=== PATIENT | male | born 1970 | race Caucasian/White ===

== ENCOUNTER 2017-05-15 20:51 | Inpatient (IN) | payer MEDICARE, MEDICAID ==
--- NOTE | 2017-05-15 21:07 | ED ---
General Adult HPI - General Chief complaint: Psychiatric Symptoms Stated complaint: mental health Time Seen by Provider: 05/15/17 20:58 Source: patient, RN notes reviewed Mode of arrival: ambulatory Limitations: no limitations - History of Present Illness Initial comments: Patient 46-year-old male who presents emergency room today with chief complaint of auditory hallucinations. He does admit that he's been hearing voices. He denies any thoughts of hurting himself or others. States he was seeing admitted to the hospital back in August 2016. at bedside states that he does not smoke been taking his medications. States is not taking or what to do. He does admit to taking the Zoloft. States she's been taking his metformin for his diabetes. He denies any other complaints or associated symptoms. Patient denies any recent fever, chills, shortness of breath, chest pain, back pain, abdominal pain, nausea or vomiting, numbness or tingling, dysuria or hematuria, constipation or diarrhea, headaches or visual changes, or any other complaints. - Related Data Home Medications Medication Instructions Recorded Confirmed Atorvastatin [Lipitor] 40 mg PO DAILY 05/15/17 05/15/17 Sertraline [Zoloft] 100 mg PO DAILY 05/15/17 05/15/17 metFORMIN HCL [Glucophage] 500 mg PO BID 05/15/17 05/15/17 Allergies Allergy/AdvReac Type Severity Reaction Status Date / Time No Known Allergies Allergy Verified 05/15/17 21:12 Review of Systems ROS Statement: Those systems with pertinent positive or pertinent negative responses have been documented in the HPI. ROS Other: All systems not noted in ROS Statement are negative. Past Medical History Past Medical History: Diabetes Mellitus History of Any Multi-Drug Resistant Organisms: None Reported Additional Past Surgical History / Comment(s): right shoulder Past Psychological History: Bipolar, Depression, Schizoaffective Disorder Smoking Status: Former smoker General Exam - General Exam Comments Initial Comments: General: The patient is awake and alert, in no distress, and does not appear acutely ill. Eye: Pupils are equal, round and reactive to light, extra-ocular movements are intact. No nystagmus. There is normal conjunctiva bilaterally. No signs of icterus. Ears, nose, mouth and throat: There are moist mucous membranes and no oral lesions. Neck: The neck is supple, there is no tenderness or JVD. Cardiovascular: There is a regular rate and rhythm. No murmur, rub or gallop is appreciated. Respiratory: Lungs are clear to auscultation, respirations are non-labored, breath sounds are equal. No wheezes, stridor, rales, or rhonchi. Musculoskeletal: Normal ROM, no tenderness. Strength 5/5. Sensation intact. Pulses equal bilaterally 2+. Neurological: A&O x 3. CN II-XII intact, There are no obvious motor or sensory deficits. Coordination appears grossly intact. Speech is normal. Skin: Skin is warm and dry and no rashes or lesions are noted. Psychiatric: Cooperative, appropriate mood & affect, normal judgment. Limitations: no limitations Course Vital Signs 05/15/17 20:52 Temperature 98.9 F Pulse Rate 100 Respiratory 18 Rate Blood Pressure 145/92 O2 Sat by Pulse 97 Oximetry Medical Decision Making - Medical Decision Making Patient examined here in the emergency room by [facility]. They recommended admission. - Lab Data Lab Results 05/15/17 05/15/17 Range/Units 22:09 22:12 POC Glucose (mg/dL) 302 H (75-99) mg/dL POC Glu History Faculty Member ID Darcie Atkinson Urine Opiates Screen Not Detected (NotDetected) Ur Oxycodone Screen Not Detected (NotDetected) Urine Methadone Screen Not Detected (NotDetected) Ur Propoxyphene Screen Not Detected (NotDetected) Ur Barbiturates Screen Not Detected (NotDetected) U Tricyclic Antidepress Not Detected (NotDetected) Ur Phencyclidine Scrn Not Detected (NotDetected) Ur Amphetamines Screen Not Detected (NotDetected) U Methamphetamines Scrn Not Detected (NotDetected) U Benzodiazepines Scrn Not Detected (NotDetected) Urine Cocaine Screen Not Detected (NotDetected) U Marijuana (THC) Screen Not Detected (NotDetected) Disposition Clinical Impression: Acute psychosis Disposition: TRANSFER TO PSYCH HOSP/UNIT Condition: Stable Referrals: Jessica Meza MD [Primary Care Provider] - 1-2 days Time of Disposition: 00:02
[2017-05-15 22:15] LABS: Glucose,Whole Blood 302 mg/dL (75-99)
[2017-05-15] MEDS ORDERED: metFORMIN 500 MG TAB PO STA (22:20)
[2017-05-16] MEDS ORDERED: MAG HYDROX/AL HYDROX/SIMETH 30 ML CUP PO PRN (01:12)
[2017-05-16] MEDS ORDERED: ACETAMINOPHEN TAB 325 MG TAB PO PRN (01:12)
[2017-05-16] MEDS ORDERED: ZIPRASIDONE 20 MG VIAL IM PRN (01:12)
[2017-05-16] MEDS ORDERED: MAGNESIUM HYDROXIDE 2,400 MG/10 ML CUP PO PRN (01:12)
[2017-05-16] MEDS ORDERED: LORazepam 2 MG/ML SYRINGE IM PRN (01:16)
[2017-05-16] MEDS ORDERED: WATER FOR INJECTION, STERILE 10 ML IV ONE (01:22)
[2017-05-16] MEDS ORDERED: ZIPRASIDONE 20 MG VIAL IM ONE (01:22)
[2017-05-16 01:37] LABS: Glucose,Whole Blood 251 mg/dL (75-99)
[2017-05-16] MEDS ORDERED: LORazepam 2 MG/ML SYRINGE IM STA (01:52)
[2017-05-16 07:20] LABS: Glucose,Whole Blood 235 mg/dL (75-99)
[2017-05-16] MEDS ORDERED: metFORMIN 500 MG TAB PO SCH (07:30)
[2017-05-16] MEDS: SERTRALINE 100 MG TAB PO SCH (09:24)
[2017-05-16] MEDS: ATORVASTATIN 40 MG TAB PO SCH (09:24)
[2017-05-16 09:40] LABS: Basophils % (A) 0 %; CH 28.8; CHCM 35.2; Eosinophils # (A) 0.1 k/uL (0-0.7); Eosinophils % (A) 1 %; HCT 47.6 % (39.0-53.0); HDW 2.84; HGB 16.6 gm/dL (13.0-17.5); Luc # (Auto) 0.13; Luc % (Auto) 2; Lymphocytes # (A) 1.7 k/uL (1.0-4.8); Lymphocytes % (A) 23 %; MCH 28.6 pg (25.0-35.0); MCV 81.9 fL (80.0-100.0); Mean Platelet Volume 8.3; Monocytes # (A) 0.5 k/uL (0-1.0); Monocytes % (A) 7 %; Neutrophils # (A) 4.9 k/uL (1.3-7.7); Neutrophils % (A) 67 %; RBC 5.81 m/uL (4.30-5.90); RDW 13.7 % (11.5-15.5); WBC 7.3 k/uL (3.8-10.6); WBC (Perox) 7.48
[2017-05-16 10:25] LABS: ALT 41 U/L (21-72); AST 23 U/L (17-59); Alkaline Phosphatase 90 U/L (38-126); Anion Gap 14 mmol/L; Blood Urea Nitrogen 11 mg/dL (9-20); Calcium 10.1 mg/dL (8.4-10.2); Carbon Dioxide 28 mmol/L (22-30); Chloride 100 mmol/L (98-107); Glucose 284 mg/dL (74-99); Non-African American GFR(MDRD) >60 (>60 ml/min/1.73 sqM); Potassium 4.1 mmol/L (3.5-5.1); Sodium 142 mmol/L (137-145); Total Bilirubin 1.2 mg/dL (0.2-1.3); Total Protein 7.7 g/dL (6.3-8.2)
--- NOTE | 2017-05-16 11:45 | P.HP ---
Psychiatric H&P - . History & Physical: Allergies Allergy/AdvReac Type Severity Reaction Status Date / Time No Known Allergies Allergy Verified 05/15/17 21:12 Vital Signs Temp 98.2 F 05/16/17 00:45 Pulse 94 05/16/17 00:45 Resp 16 05/16/17 00:45 BP 148/88 05/16/17 00:45 Pulse Ox 99 05/16/17 00:45 Intake & Output 05/15/17 05/16/17 05/16/17 18:59 06:59 18:59 Weight 106.594 kg Laboratory Last Values WBC 7.3 k/uL (3.8-10.6) 05/16/17 09:05 RBC 5.81 m/uL (4.30-5.90) 05/16/17 09:05 Hgb 16.6 gm/dL (13.0-17.5) 05/16/17 09:05 Hct 47.6 % (39.0-53.0) 05/16/17 09:05 MCV 81.9 fL (80.0-100.0) 05/16/17 09:05 MCH 28.6 pg (25.0-35.0) 05/16/17 09:05 MCHC 35.0 g/dL (31.0-37.0) 05/16/17 09:05 RDW 13.7 % (11.5-15.5) 05/16/17 09:05 Plt Count 200 k/uL (150-450) 05/16/17 09:05 Neutrophils % 67 % 05/16/17 09:05 Lymphocytes % 23 % 05/16/17 09:05 Monocytes % 7 % 05/16/17 09:05 Eosinophils % 1 % 05/16/17 09:05 Basophils % 0 % 05/16/17 09:05 Neutrophils # 4.9 k/uL (1.3-7.7) 05/16/17 09:05 Lymphocytes # 1.7 k/uL (1.0-4.8) 05/16/17 09:05 Monocytes # 0.5 k/uL (0-1.0) 05/16/17 09:05 Eosinophils # 0.1 k/uL (0-0.7) 05/16/17 09:05 Basophils # 0.0 k/uL (0-0.2) 05/16/17 09:05 Sodium 142 mmol/L (137-145) 05/16/17 09:05 Potassium 4.1 mmol/L (3.5-5.1) 05/16/17 09:05 Chloride 100 mmol/L (98-107) 05/16/17 09:05 Carbon Dioxide 28 mmol/L (22-30) 05/16/17 09:05 Anion Gap 14 mmol/L 05/16/17 09:05 BUN 11 mg/dL (9-20) 05/16/17 09:05 Creatinine 0.82 mg/dL (0.66-1.25) 05/16/17 09:05 Est GFR (MDRD) Af Amer >60 (>60 ml/min/1.73 sqM) 05/16/17 09:05 Est GFR (MDRD) Non-Af >60 (>60 ml/min/1.73 sqM) 05/16/17 09:05 Glucose 284 mg/dL (74-99) H 05/16/17 09:05 POC Glucose (mg/dL) 235 mg/dL (75-99) H 05/16/17 07:18 POC Glu Television Journalist Selam Roy 05/16/17 07:18 Calcium 10.1 mg/dL (8.4-10.2) 05/16/17 09:05 Total Bilirubin 1.2 mg/dL (0.2-1.3) 05/16/17 09:05 AST 23 U/L (17-59) 05/16/17 09:05 ALT 41 U/L (21-72) 05/16/17 09:05 Alkaline Phosphatase 90 U/L (38-126) 05/16/17 09:05 Total Protein 7.7 g/dL (6.3-8.2) 05/16/17 09:05 Albumin 4.8 g/dL (3.5-5.0) 05/16/17 09:05 TSH 1.800 mIU/L (0.465-4.680) 05/16/17 09:05 Urine Opiates Screen Not Detected (NotDetected) 05/15/17 22:09 Ur Oxycodone Screen Not Detected (NotDetected) 05/15/17 22:09 Urine Methadone Screen Not Detected (NotDetected) 05/15/17 22:09 Ur Propoxyphene Screen Not Detected (NotDetected) 05/15/17 22:09 Ur Barbiturates Screen Not Detected (NotDetected) 05/15/17 22:09 U Tricyclic Antidepress Not Detected (NotDetected) 05/15/17 22:09 Ur Phencyclidine Scrn Not Detected (NotDetected) 05/15/17 22:09 Ur Amphetamines Screen Not Detected (NotDetected) 05/15/17 22:09 U Methamphetamines Scrn Not Detected (NotDetected) 05/15/17 22:09 U Benzodiazepines Scrn Not Detected (NotDetected) 05/15/17 22:09 Urine Cocaine Screen Not Detected (NotDetected) 05/15/17 22:09 U Marijuana (THC) Screen Not Detected (NotDetected) 05/15/17 22:09 05/16/17 11:30 IDENTIFYING DATA: This patient is a 46-year-old male who was admitted to the mental health unit through the emergency room for acute symptoms of psychosis. HPI: The patient states that he is here because of "demonic possession". He states at the age of 16 he participated in a sance and a channeling attempt. He reports he offended the holy spirit and ever since last August he has been tortured by a demon. He feels forsaken by God as he feels God's intention is to have this demon kill him. Prior to coming in he states he walked 10 miles and had a conversation with a demon for the entire time. He feels trapped at the demon made him feel he was channeling God's voice. Last evening the patient states he requested to be restrained as the demon had become strong enough to move the patient's extremities and also his head. The patient reports the demon made him hit his head on the wall twice. The patient states whatever he was given medication hoffman last night was helpful and it was the first time he had any rest in 8 months. He describes his mood as "somber". He describes himself as having "bipolar schizotypal". He describes a history of having highs and lows and describes episodes of deedee as times of being "elated ". He endorses episodes of depression throughout his life. He has had suicidal thoughts in the past he is reporting none now he is reporting no homicidal ideation. He states he's okay he is just symptomatic when the demon intervenes. He describes having anxiety symptoms because of hallucinations. He reports having no firearms at home. PAST PSYCHIATRIC HISTORY: This is the patient's second inpatient hospitalization the first was on this unit back in August 2016 under the care of Dr. Cabral. At that time he was placed on Latuda 40 mg daily and Zoloft 100 mg daily. He has previously tried Abilify he is unable to provide any specifics related to that medication. He was [facility] but appears he was not compliant with ongoing follow-up. PMH: Diabetes poorly controlled at this time ALLERGIES: NO KNOWN DRUG ALLERGIES MEDICATIONS: Metformin CHEMICAL DEPENDENCY HISTORY: He reports no use of alcohol or illicit drugs including marijuana. He states he's never been placed in residential treatment for chemical dependency reasons. FAMILY PSYCHIATRIC HISTORY: Grandmother was known to be schizophrenic, no reported suicides in the family FAMILY CHEMICAL DEPENDENCY HISTORY: Unknown SOCIAL HISTORY: The patient is 46 years old he's been for approximately 11 years he states his marriage has "ups and downs" he has a total of 5 biological children 2 of them live with him and his ages 4 and 10 both are voice. A 17-year-old stepdaughter resides in the home as well. His has a total of 4 children the patient has 8 brothers. He is originally from [place]. He is unemployed and is on a disability income because of mental illness symptoms. No history of service. Legal history none reported abuse history none reported MENTAL STATUS EXAM: The patient is a male appearing his stated age he is dressed in a hospital gown. He seated calmly in the chair. He reports his mood is "somber". He reports a sense of relief that the hallucinations have been resolved since receiving the IM medication. He reports that they will induce suicidal ideation but he does not feel suicidal at this time he is reporting no homicidal ideation. He has a very well developed delusional construct. He will go on for quite some time describing his feelings of being possessed by a demon. He endorses a belief that he is forsaken by God and that this demon's intent is to kill him. The patient demonstrated no verbal or physical aggressiveness. Speech is fluent spontaneous he was hyperverbal but not pressured. He is oriented to person place and date. STRENGTHS/WEAKNESSES: Strengths: Housing, income, willingness to receive treatment voluntarily weaknesses: Ongoing acute symptoms of psychosis INTELLECTUAL FUNCTIONING: Average IMPRESSIONS: [] 1. Psychosis unspecified, rule out schizophrenia versus schizoaffective disorder, rule out primary mood disorder severe with psychosis 2. Diabetes poorly controlled 3. Psychosocial dysfunction due to acute psychotic symptoms PLAN: The patient has been admitted to the mental health unit voluntarily. We reviewed his presenting symptoms and medication options. We have decided to initiate Geodon orally 40 mg twice daily and we will titrate this further during his hospitalization. He will meet with internal medicine physician for routine history and physical exam with special attention being paid to his diabetes control. Social work is met with the patient to complete a psychosocial assessment. We will monitor him for safety and encourage his participation in the milieu. He is currently on one-to-one supervision we will continue this for now as we continue to assess him for safety.
[2017-05-16] MEDS: ZIPRASIDONE 40 MG CAP PO SCH ×2 (12:46→22:10)
[2017-05-16 13:00] LABS: Glucose,Whole Blood 201 mg/dL (75-99)
--- NOTE | 2017-05-16 15:42 | P.CONS ---
History of Present Illness - Reason for Consult Consult date: 05/16/17 Advice regarding diabetes mellitus - History of Present Illness This 46-year-old gentleman with a past medical history of diabetes2 bipolar depression schizophrenia was admitted proceeded with evaluation for possible psychosis. The patient also had uncontrolled diabetes mellitus. The patient has been very Dr. Meza in the outpatient. Patient was taking metformin. However the patient was thought to be noncompliant with medications. The patient has been started on NovoLog insulin scale. Importance of follow-up consistent carbohydrate diet also been stressed. Review of Systems REVIEW OF SYSTEMS: ENT: No diminished vision or hearing. CARDIOVASCULAR: Mentioned earlier. RESPIRATORY: As mentioned earlier. GI: No nauscea, vomiting or diarrhea. : No dysuria or retention. NERVOUS SYSTEM: No numbness or weakness. ALLERGY/IMMUNOLOGY: No asthma or hay fever. MUSCULOSKELETAL: As mentioned earlier. HEMATOLOGY/ONCOLOGY: No history of anemia. ENDOCRINE: history of diabetes no hypothyroidism. CONSTITUTIONAL: As mentioned earlier. DERMATOLOGY: Negative. PSYCHIATRY: Mentioned earlier. RHEUMATOLOGY: Negative. Past Medical History Past Medical History: Diabetes Mellitus History of Any Multi-Drug Resistant Organisms: None Reported Additional Past Surgical History / Comment(s): right shoulder Past Psychological History: Bipolar, Depression, Schizoaffective Disorder Smoking Status: Former smoker Medications and Allergies Home Medications Medication Instructions Recorded Confirmed Type Atorvastatin [Lipitor] 40 mg PO DAILY 05/15/17 05/15/17 History Sertraline [Zoloft] 100 mg PO DAILY 05/15/17 05/15/17 History metFORMIN HCL [Glucophage] 500 mg PO BID 05/15/17 05/15/17 History Allergies Allergy/AdvReac Type Severity Reaction Status Date / Time No Known Allergies Allergy Verified 05/15/17 21:12 Physical Exam Vitals: Vital Signs Temp Pulse Pulse Resp BP BP Pulse Ox 05/16/17 00:45 98.2 F 94 16 148/88 99 05/16/17 00:14 99.0 F 86 18 139/76 100 05/15/17 20:52 98.9 F 100 18 145/92 97 On exam, alert and oriented x3. HEENT: Conjunctivae normal. NECK: No JVD. No thyroid enlargement. No LNs CARDIOVASCULAR: S1, S2 muffled. No murmur RESPIRATION: Breath sounds diminished in the bases. No rhonchi or crackles ABDOMEN: Soft, nontender no masses palpable. No ascites, LEGS: No edema. no swelling NERVOUS SYSTEM: Moves all 4 limbs. No focal deficits. Skin: no ulcer rash Joints: No active swelling Lymphatic system. No LN neck axilla or groin. Results CBC & Chem 7: 05/16/17 09:05 05/16/17 09:05 Labs: Abnormal Lab Results - Last 24 Hours (Table) 05/15/17 05/16/17 05/16/17 Range/Units 22:12 01:34 07:18 Glucose (74-99) mg/dL POC Glucose (mg/dL) 302 H 251 H 235 H (75-99) mg/dL 05/16/17 05/16/17 Range/Units 09:05 12:45 Glucose 284 H (74-99) mg/dL POC Glucose (mg/dL) 201 H (75-99) mg/dL Assessment and Plan Plan: Assessment 1. Diabetes mellitus type 2 2. Possible psychosis 8. Possible noncompliance. Plan In this 46-year-old gentleman who was admitted for evaluation of psychosis in the psych unit I would recommend to continue metformin. The dose may be increased thousand milligrams twice daily. Accu-Cheks before meals and at bedtime and NovoLog scale. Importance of diet as mentioned earlier. Recommended close follow-up with the Dr. Meza outpatient. We will follow the patient closely with you. Thank you Dr. Alcantara for letting us participate in the care of this patient.
[2017-05-16] MEDS: metFORMIN 500 MG TAB PO SCH (16:38)
[2017-05-16 17:51] LABS: Glucose,Whole Blood 258 mg/dL (75-99)
[2017-05-16] MEDS: INSULIN LISPRO (humaLOG) 300 UNIT/3 ML VIAL SQ SCH ×2 (17:57→22:16)
[2017-05-16] MEDS ORDERED: LURASIDONE 40 MG TAB PO SCH (18:00)
[2017-05-16 20:25] LABS: Hemoglobin A1C 9.7 % (4.2-6.1)
[2017-05-16 22:16] LABS: Glucose,Whole Blood 186 mg/dL (75-99)
[2017-05-16] MEDS: LORazepam 1 MG TAB PO PRN (23:19)
[2017-05-17 06:21] LABS: Glucose,Whole Blood 165 mg/dL (75-99)
[2017-05-17] MEDS: INSULIN LISPRO (humaLOG) 300 UNIT/3 ML VIAL SQ SCH ×4 (09:18→20:33)
[2017-05-17] MEDS: ZIPRASIDONE 40 MG CAP PO SCH ×2 (09:18→20:33)
[2017-05-17] MEDS: metFORMIN 500 MG TAB PO SCH ×2 (09:19→18:00)
[2017-05-17] MEDS: ATORVASTATIN 40 MG TAB PO SCH (09:19)
[2017-05-17] MEDS: SERTRALINE 100 MG TAB PO SCH (09:19)
[2017-05-17 09:36] VITALS: BMI 32.8
--- NOTE | 2017-05-17 12:25 | P.PN ---
Progress Note - Text Interval History: Patient is a 46-year-old male who was seen in coverage for Dr. Alcantara. Patient reported to me that at the beginning of medication that the auditory hallucinations have "mellowed out" and are less intense and he is trying to ignore them. He reports that he continues to hear Satan's voice and it tells him that he is "going to kill him" and he states that Satan told him he is "forsaken" and "didn't trust in the holy spirit". Patient states that his behavior was controlled by Satan in the past and Satan has been playing games with him. He reports that he has no current suicidal ideation and does not want to but did bang his head against the wall and try to kill himself on Satan's orders. He states that he slept well last evening did require one Ativan dose yesterday. Patient states that he is eating well. Mental Status: Appearance/Attitude: Patient was neatly dressed and was cooperative during the interview. Behavior: Patient did not display any psychomotor agitation or retardation and sat comfortably during the interview. Speech/Language: Patient's speech was spontaneous and of normal volume and rhythm. Thought Process: Patient was goal-directed and he was not tangential or circumstantial, no loose associations or flight of ideas. Thought Content: Patient reported that the auditory hallucinations have mellowed out but continue to occur and are not as intense. He reports he is trying to ignore it and describes the voices as Satan's telling him that he is going to kill the patient and that he is forsaken. Patient states that he is trying to ignore the voices but they continue to be bothersome. He reports that his behavior has been controlled by Satan and that he is playing games with the patient. Patient denied any visual hallucinations. Suicidal/Homicidal Ideation: Patient denied any current suicidal ideation and states that he does not want to but stated that he had banged his head on the wall in response to Satan controlling his behavior and denied any homicidal ideation. Sensorium/Cognition: Patient was alert and oriented to person, place, and situation and time and his memory is grossly intact. Intellectual Functioning: Intellectual functioning appears average Mood/Affect: Patient's mood slightly guarded, affect was blunted. Insight/Judgement: Agency insight and judgment are impaired. Assessment: Patient was begun on Geodon yesterday and appears to have had some beginning response to the medication with a decrease in the intensity of his auditory hallucinations. Patient continues to hear the voice of Lorenzovanessa telling him that he is going to hurt the patient, that he is forsaken and patient believes that Satan has controlled his behavior in the past. Patient remains on a one-to-one. Patient's glucose is been better controlled now that he is return to his past medications which he had discontinued as an outpatient. Patient's vital signs are stable as well. Plan: Will continue patient on Geodon 40 mg twice a day as he is only received 2 doses and is not having any reports of side effects. Patient will be maintained on one-to-one as he continues to have auditory hallucinations and on admission was responding to them, trying to choke himself, was banging his head on the wall. Patient has been compliant with his medications. Patient continues to require hospitalization to stabilize him on medication to target his psychotic symptoms and prevent self-harm.
[2017-05-17 12:42] LABS: Glucose,Whole Blood 170 mg/dL (75-99)
[2017-05-17 17:32] LABS: Glucose,Whole Blood 193 mg/dL (75-99)
[2017-05-17 20:44] LABS: Glucose,Whole Blood 156 mg/dL (75-99)
[2017-05-17] MEDS: LORazepam 1 MG TAB PO PRN (21:20)
[2017-05-18 07:03] LABS: Glucose,Whole Blood 191 mg/dL (75-99)
[2017-05-18] MEDS: ATORVASTATIN 40 MG TAB PO SCH (08:27)
[2017-05-18] MEDS: SERTRALINE 100 MG TAB PO SCH (08:27)
[2017-05-18] MEDS: metFORMIN 500 MG TAB PO SCH ×2 (08:27→18:17)
[2017-05-18] MEDS: ZIPRASIDONE 40 MG CAP PO SCH (08:28)
[2017-05-18] MEDS: INSULIN LISPRO (humaLOG) 300 UNIT/3 ML VIAL SQ SCH ×4 (08:28→20:35)
--- NOTE | 2017-05-18 11:09 | P.PN ---
Progress Note - Text Interval history: The patient is found in the quiet room he follows me to an interview room. He does have is wait until he is finished reading a prayer however. He states that the hallucinations are still present but they are somewhat quieter. He continues to express a concern that the demon could take control of his body again. He has been on one-to-one supervision still. Staff report that the patient has not been demonstrating any agitated behavior. He again begins describing the symptoms that prompted this admission. We discussed increasing the Geodon and he is agreeable. He does feel that the medication is providing benefit. He has not been attending groups as he does not feel he can relate to the other patients. Appetite is stable. Mental status exam: The patient is alert he seated calmly eye contact is appropriate speech is fluent spontaneous nonpressured. He continues to endorse auditory hallucinations and the form of a demon or Satan. He does report that the voices becoming quieter. He states he has no desire to hurt himself or others but is concerned that the demon could take control of his body and cause him to do things. Insight and judgment are limited. He is easily directed in the interview. He is cooperative. He demonstrates no verbal or physical aggressiveness. Plan: The patient will continue on Geodon we will titrate the dose to 80 mg twice daily for his acute symptoms of psychosis. Vital signs reviewed. He is encouraged to try some of the group activities. We will go ahead and discontinue the one-to-one supervision as he is reporting some improvement of his psychosis. We will continue to monitor him every 15 minutes for safety.
[2017-05-18 12:37] LABS: Glucose,Whole Blood 138 mg/dL (75-99)
[2017-05-18 17:31] LABS: Glucose,Whole Blood 153 mg/dL (75-99)
[2017-05-18 20:01] LABS: Glucose,Whole Blood 220 mg/dL (75-99)
[2017-05-18] MEDS: ZIPRASIDONE 80 MG CAP PO SCH (20:38)
[2017-05-18] MEDS: LORazepam 1 MG TAB PO PRN (22:16)
[2017-05-19 06:41] LABS: Glucose,Whole Blood 183 mg/dL (75-99)
[2017-05-19] MEDS: INSULIN LISPRO (humaLOG) 300 UNIT/3 ML VIAL SQ SCH ×4 (08:03→20:12)
[2017-05-19] MEDS: SERTRALINE 100 MG TAB PO SCH (08:13)
[2017-05-19] MEDS: metFORMIN 500 MG TAB PO SCH ×2 (08:13→17:27)
[2017-05-19] MEDS: ATORVASTATIN 40 MG TAB PO SCH (08:14)
[2017-05-19] MEDS: ZIPRASIDONE 80 MG CAP PO SCH ×2 (08:14→20:10)
--- NOTE | 2017-05-19 10:52 | P.PN ---
Progress Note - Text Interval history: The patient is found in the library he follows me to an interview room. He patient reports that his hallucinations seem to be improving. In fact he offers some doubt as to whether or not they are real. He states he is conflicted as to whether not he's having a delusion that the medication can help or if it is still demonic possession. He is tolerating the Geodon without any reported side effects we have titrated the dose yesterday evening. He has been attending groups, meals, he reports having some difficulty with sleep and has been using Ativan. Mental status exam: The patient is alert he seated calmly in his chair. He reports his mood is better as the hallucinations appear to be less severe. He states they continue to be commanding and direct self-harm but he states he has no intent or plan of harming himself. He does not appear to respond to psychosis during our session. He does not appear hypomanic or manic. Speech is fluent spontaneous nonpressured he is easily directed in the session. Insight and judgment slowly improving but limited still. He demonstrates no verbal or physical aggressiveness. Affect demonstrates some limited range. Plan: The patient will continue on the Geodon 80 mg twice daily continue Zoloft 100 mg daily. His psychosis appears to be improving. We will monitor him for safety and encourage his participation in the milieu. Vital signs reviewed.
[2017-05-19 12:37] LABS: Glucose,Whole Blood 185 mg/dL (75-99)
[2017-05-19] MEDS: LORazepam 1 MG TAB PO PRN (16:33)
[2017-05-19 16:51] LABS: Glucose,Whole Blood 162 mg/dL (75-99)
[2017-05-19 19:47] LABS: Glucose,Whole Blood 218 mg/dL (75-99)
[2017-05-20 06:19] LABS: Glucose,Whole Blood 187 mg/dL (75-99)
[2017-05-20] MEDS: INSULIN LISPRO (humaLOG) 300 UNIT/3 ML VIAL SQ SCH ×4 (08:03→20:12)
[2017-05-20] MEDS: metFORMIN 500 MG TAB PO SCH ×2 (08:04→17:46)
[2017-05-20] MEDS: SERTRALINE 100 MG TAB PO SCH (09:09)
[2017-05-20] MEDS: ATORVASTATIN 40 MG TAB PO SCH (09:09)
[2017-05-20] MEDS: ZIPRASIDONE 80 MG CAP PO SCH ×2 (09:09→20:12)
[2017-05-20 12:29] LABS: Glucose,Whole Blood 178 mg/dL (75-99)
[2017-05-20] MEDS: LORazepam 1 MG TAB PO PRN (14:41)
[2017-05-20] MEDS ORDERED: OLANZapine ODT 5 MG TAB PO PRN (15:32)
--- NOTE | 2017-05-20 15:32 | P.PN ---
Progress Note - Text Date of service: 05/20/2017 Chief complaint: "I feel horrible today" Subjective: The patient has been seen today as follow-up, chart reviewed, case discussed with the treatment team. The voices are worse today and he telling him that " You are Satan" "You will never leave this place" " You will have heart attack." He denies CAH. He minimized depression but feels hopeless and feel upbeat because voices get too much intense today and get him down. He denies feeling suicidal and denies feeling urge or intent to hurt self or others. He reports has good sleep last night for about 6 hrs and denies any poor appetite. The patient denies feeling paranoid and minimizes thoughts of other following him, chasing him or talking about him. The patient denies any manic symptoms. Review of other systems: Patient denies any physical symptoms besides what has been mentioned above. No breathing problems, no chest pain reported today. Objective: Vitals has been reviewed. Mental status examination: Appearance: The patient appears stated age, adequately groomed, no specific features. Gait/posture: Normal gait, Normal arm swinging: No abnormal movements. Attitude and behavior: engaged, cooperative, staring eye contact. Motor activity: Increased psychomotor activity Speech: Normal rate, rhythm, and articulation Mood: Irritable Affect: Full, labile Thought form: Preoccupied with the voices Thought content: Non-delusional, denies suicidal thoughts, denies homicidal thoughts, denies intentions or plans. Perception: REPORTS auditory hallucinations Attention: No impairment. Orientation: Patient patient was fully oriented to time place person and situation. Insight: Patient has limited insight about his psychiatric disorder. Judgment: Patient has limited judgment about his psychiatric treatment. Assessment: Psychosis unspecified, rule out schizophrenia versus schizoaffective disorder, rule out primary mood disorder severe with psychosis Plan: Continue with inpatient psychiatric hospitalization for monitoring and continue treatment. Continue group therapy and other unit activities. Continue follow up with medical team to address physical problems including diabetes treatment Continue psychiatric medications: Geodon 80 mg twice a day for psychotic symptoms and Zoloft 100 mg daily for depression and anxiety symptoms. Add Zyprexa Zydis 5 mg by mouth every 6 hours when necessary for severe psychotic symptoms. Discharge planning is ongoing.
[2017-05-20 17:05] LABS: Glucose,Whole Blood 191 mg/dL (75-99)
[2017-05-20 20:01] LABS: Glucose,Whole Blood 204 mg/dL (75-99)
[2017-05-21 06:23] LABS: Glucose,Whole Blood 173 mg/dL (75-99)
[2017-05-21] MEDS: metFORMIN 500 MG TAB PO SCH ×2 (07:56→18:09)
[2017-05-21] MEDS: INSULIN LISPRO (humaLOG) 300 UNIT/3 ML VIAL SQ SCH ×4 (07:56→20:20)
[2017-05-21] MEDS: ATORVASTATIN 40 MG TAB PO SCH (08:00)
[2017-05-21] MEDS: SERTRALINE 100 MG TAB PO SCH (08:00)
[2017-05-21] MEDS: ZIPRASIDONE 80 MG CAP PO SCH ×2 (08:00→20:21)
--- NOTE | 2017-05-21 11:00 | P.PN ---
Progress Note - Text Date of service: 05/21/2017 Chief complaint: "I'm still hearing the voices" Subjective: The patient has been seen today as follow-up, chart reviewed, case discussed with the treatment team. The patient continued to complaint that the voices continued to till him that he is going to and the voices are from Satan and not a schizophrenia. Patient has some verbal altercation with other male patient yesterday but he denies feeling threatened and he denies any homicidal or violence thoughts toward the other patient. He reports will continued to avoid the other patient as much as he could. Patient reports the voices get worse when he is by himself. Patient slept about 4 hours last night and he has been going to groups, and denies appetite problems. The patient denies any manic symptoms. He minimized paranoid thoughts. Review of other systems: Patient denies any physical symptoms besides what has been mentioned above. No breathing problems, no chest pain reported today. Objective: Vitals has been reviewed. Mental status examination: Appearance: The patient appears stated age, adequately groomed, no specific features. Gait/posture: Normal gait, Normal arm swinging: No abnormal movements. Attitude and behavior: engaged, cooperative, staring eye contact. Motor activity: Increased psychomotor activity Speech: Normal rate, rhythm, and articulation Mood: Irritable Affect: Full, labile Thought form: Preoccupied with the voices Thought content: Non-delusional, denies suicidal thoughts, denies homicidal thoughts, denies intentions or plans. Perception: REPORTS auditory hallucinations Attention: No impairment. Orientation: Patient patient was fully oriented to time place person and situation. Insight: Patient has limited insight about his psychiatric disorder. Judgment: Patient has limited judgment about his psychiatric treatment. Assessment: Psychosis unspecified, rule out schizophrenia versus schizoaffective disorder, rule out primary mood disorder severe with psychosis Plan: Continue with inpatient psychiatric hospitalization for monitoring and continue treatment. Continue group therapy and other unit activities. Continue follow up with medical team to address physical problems including diabetes treatment Continue psychiatric medications: Geodon 80 mg twice a day for psychotic symptoms and Zoloft 100 mg daily for depression and anxiety symptoms. Continue Zyprexa Zydis 5 mg by mouth every 6 hours when necessary for severe psychotic symptoms. Continue monitoring and follow up.
[2017-05-21 12:43] LABS: Glucose,Whole Blood 213 mg/dL (75-99)
--- NOTE | 2017-05-21 15:55 | P.PN ---
Subjective This 46-year-old gentleman who was admitted with psychiatric evaluation has diabetes mellitus. The pressure is elevated. The values are reviewed. No chest pain or palpitation or shortness of breath. Objective - Vital Signs Vital signs: Vital Signs Temp 97.8 F 05/21/17 06:37 Pulse 73 05/21/17 06:37 Resp 20 05/21/17 06:37 BP 100/56 05/21/17 06:37 Pulse Ox 99 05/16/17 00:45 Intake & Output 05/20/17 05/21/17 05/21/17 18:59 06:59 18:59 Weight 106.4 kg - Exam On exam, alert and oriented x3. HEENT: Conjunctivae normal. eyes normal. NECK: No JVD. No thyroid enlargement. No LNs CARDIOVASCULAR: S1, S2 muffled. No murmur RESPIRATION: Breath sounds diminished in the bases. No rhonchi or crackles. No bronchial breathing. ABDOMEN: Soft, nontender . No guarding. no masses palpable. No ascites, No hepatosplenomegaly.Bowel sounds heard. LEGS: No edema. no swelling NERVOUS SYSTEM: Cranial N 2-12 grossly normal. Moves all 4 limbs. No focal deficits. No sensory deficit. No signs of cerebellar dysfucntion. Skin: no ulcer no rash Joints: No active swelling. No inflammation. Lymphatic system. No LN neck axilla or groin. - Labs CBC & Chem 7: 05/16/17 09:05 05/16/17 09:05 Labs: Abnormal Lab Results - Last 24 Hours (Table) 05/20/17 05/20/17 05/21/17 Range/Units 17:04 19:59 06:22 POC Glucose (mg/dL) 191 H 204 H 173 H (75-99) mg/dL 05/21/17 Range/Units 12:21 POC Glucose (mg/dL) 213 H (75-99) mg/dL Assessment and Plan Plan: Assessment 1. Diabetes mellitus type 2 uncontrolled 2. Possible psychosis 8. Possible noncompliance. Plan This 46-year-old gentleman who was admitted for psychiatric evaluation still has elevated blood sugars. I would recommend to add Glucotrol XL long-acting. Recommended close follow-up with Dr. Dr. Meza in the preceding. Dietary recommendations..
[2017-05-21 17:27] LABS: Glucose,Whole Blood 147 mg/dL (75-99)
[2017-05-21 20:13] LABS: Glucose,Whole Blood 140 mg/dL (75-99)
[2017-05-21] MEDS: LORazepam 1 MG TAB PO PRN (22:58)
[2017-05-22 06:38] LABS: Glucose,Whole Blood 167 mg/dL (75-99)
[2017-05-22] MEDS: INSULIN LISPRO (humaLOG) 300 UNIT/3 ML VIAL SQ SCH ×4 (07:57→20:17)
[2017-05-22] MEDS: metFORMIN 500 MG TAB PO SCH ×2 (07:59→17:28)
[2017-05-22] MEDS: SERTRALINE 100 MG TAB PO SCH (08:38)
[2017-05-22] MEDS: ZIPRASIDONE 80 MG CAP PO SCH ×2 (08:38→20:16)
[2017-05-22] MEDS: ATORVASTATIN 40 MG TAB PO SCH (08:38)
--- NOTE | 2017-05-22 09:01 | P.PN ---
Progress Note - Text Interval history: The patient is found in the hallway he follows this to an interview room. He reports that his mood continues to be impacted by the continuing auditory hallucinations. He finds himself conflicted as to whether or not it is Satan or "schizophrenia". He states that the hallucinations continue to direct self-harm and harm to others however he has been controlling that impulse. He reports a visit from his coal handler yesterday who reassured him that the patient is not condemned. The patient endorses ongoing symptoms of anxiety and insomnia. The weekend covering psychiatrist started Zyprexa Zydis 5 mg as needed. The patient's did not visit but they have been speaking via phone. Mental status exam: The patient is alert he seated calmly eye contact is appropriate hygiene grooming fair. He endorses ongoing command auditory hallucinations directing harm to himself and others although he states he's been able to control that impulse while here. He reports no desire to kill himself or hurt other people. Insight and judgment limited. He demonstrates a constricted affect. No abnormal involuntary movements observed. Speech is fluent and spontaneous nonpressured. No verbal or physical aggressiveness observed. He spontaneously participates in the conversation and is easily directed. He continues to ask questions regarding his hallucinations. Plan: The patient will continue on the Geodon 80 mg twice daily we are allowing this more time to demonstrate efficacy. Zyprexa Zydis has been ordered as needed. There has been some improvement the patient is not yet ready for discharge. We will have criminal justice social worker contact his to arrange a support meeting. Vital signs reviewed.
[2017-05-22 13:07] LABS: Glucose,Whole Blood 100 mg/dL (75-99)
[2017-05-22] MEDS: LORazepam 1 MG TAB PO PRN (16:43)
[2017-05-22 17:36] LABS: Glucose,Whole Blood 159 mg/dL (75-99)
[2017-05-22 20:17] LABS: Glucose,Whole Blood 141 mg/dL (75-99)
[2017-05-23 05:50] LABS: Glucose,Whole Blood 158 mg/dL (75-99)
[2017-05-23] MEDS: SERTRALINE 100 MG TAB PO SCH (07:58)
[2017-05-23] MEDS: ATORVASTATIN 40 MG TAB PO SCH (07:58)
[2017-05-23] MEDS: INSULIN LISPRO (humaLOG) 300 UNIT/3 ML VIAL SQ SCH ×4 (07:58→20:18)
[2017-05-23] MEDS: ZIPRASIDONE 80 MG CAP PO SCH ×2 (07:58→21:05)
[2017-05-23] MEDS: metFORMIN 500 MG TAB PO SCH ×2 (07:58→18:11)
--- NOTE | 2017-05-23 11:24 | P.PN ---
Progress Note - Text Interval history: The patient is found in the hallway he follows this to an interview room. He reports that he is stabilizing here in the mental health unit. He does continue to experience reported auditory hallucinations. He verbalizes several times he is conflicted as to whether or not it actually a demon or a he has schizophrenia. He continues to assert that the Geodon has reduced the hallucinations and he feels more comfortable as a result. Because of the open CPS case he is not able to return home with his family. He is hoping to gain residence in an assisted living facility with his son providing care, funded by [facility]. Mental status exam: The patient is an overweight male he is dressed in his own clothing. Eye contact is appropriate speech is fluent spontaneous nonpressured. He reports overall his mood is improving. He reports some attenuation of his reported psychosis. He endorses continued auditory hallucinations. He feels conflicted as to whether or not he is in fact demonically possessed verses having "schizophrenia". Insight and judgment improving. He demonstrates no verbal or physical aggressiveness. He readily engages in conversation. He is easily directed during the session. He does not appear anxious. No abnormal involuntary movements observed. He reports that he will have some intermittent feelings of restlessness which we will track further. Plan: The patient will continue on the Geodon and Zoloft as written. We will monitor him for safety. Continue to monitor for akathisia. He does appear to be stabilizing and social work will assist him in exploring placement options.
[2017-05-23 12:54] LABS: Glucose,Whole Blood 197 mg/dL (75-99)
[2017-05-23] MEDS: LORazepam 1 MG TAB PO PRN ×2 (14:11→22:01)
[2017-05-23 17:56] LABS: Glucose,Whole Blood 143 mg/dL (75-99)
[2017-05-23 20:15] LABS: Glucose,Whole Blood 173 mg/dL (75-99)
[2017-05-24 05:56] LABS: Glucose,Whole Blood 190 mg/dL (75-99)
[2017-05-24 06:30] VITALS: RESP 18; TEMP 97.3
[2017-05-24] MEDS: INSULIN LISPRO (humaLOG) 300 UNIT/3 ML VIAL SQ SCH (08:12)
[2017-05-24] MEDS: metFORMIN 500 MG TAB PO SCH (08:26)
[2017-05-24] MEDS: ZIPRASIDONE 80 MG CAP PO SCH (08:27)
[2017-05-24] MEDS: SERTRALINE 100 MG TAB PO SCH (08:27)
[2017-05-24] MEDS: ATORVASTATIN 40 MG TAB PO SCH (08:27)
--- NOTE | 2017-05-24 09:46 | P.DS ---
Providers Date of admission: 05/16/17 00:04 Expected date of discharge: 05/24/17 Attending physician: Kike Alcantara Consults: 05/16/17 01:12 Consult Physician Routine Consulting Provider: Js Sparks Consult Reason/Comments: For H & P for Medical Follow Up Do you want consulting provider notified?: Yes, Notify in am Primary care physician: Jessica Meza - Discharge Diagnosis(es) (1) Unspecified psychosis Current Visit: Yes Status: Acute Priority: High Hospital Course: Brief summary of admission note: This patient is a 46-year-old male who was admitted to the mental health unit through the emergency room for acute symptoms of psychosis. The patient had stated he was here because of demonic possession. He had reported feeling forsaken by God and that it was God's intention to have a demon kill him. Prior to coming in he reported walking 10 miles he was responding to this auditory hallucination. He stated he thought he was talking to God but it was the demon tricking him. For full details please refer to my psychiatric evaluation dated 05/16/2017. Summary of hospital course: The patient was admitted to the mental health unit voluntarily. Very early into the admission the patient was agitated due to his reported psychosis and required use of restraints. He was given an injection of Geodon and he found that quite beneficial. We discussed utilizing that in an oral form and he was agreeable. The Geodon was started at 40 mg twice daily and titrated to 80 mg twice daily he remained on Zoloft. He was seen by the internal medicine physician his metformin was increased and he was started on glipizide. His blood sugars were poorly controlled upon admission. The patient reported a progressive improvement of his psychosis while here. He states today that he is doing much better and there are longer periods of time with no hallucinations. He states today he believes now that he is not possessed by a demon and possibly could have schizophrenia. There is an open CPS case he is not able to return home. He plans on residing with his son temporarily. For full detail regarding hospital course please refer to progress notes. Mental status exam: The patient is an alert overweight male appearing his stated age he seated calmly. Eye contact is appropriate speech is fluent spontaneous nonpressured. He readily engages in conversation and is easily directed in conversation. He reports his mood is "much better". He reports no suicidal or homicidal ideation intent or plan. He is reporting continued auditory hallucinations but they are much improved and he states they are almost gone. He finds that he is able to function much better given the decrease in his psychotic symptoms. He has decided that he is not possessed by a demon and that he could have a primary psychotic mental illness. Insight and judgment improved. He remains oriented. He demonstrates no verbal or physical aggressiveness. He demonstrates no abnormal involuntary movements. Impressions 1. Psychosis unspecified, rule out schizoaffective disorder, rule out primary mood disorder severe with psychosis 2. Likely cluster B traits 3. Diabetes previously poorly controlled Plan: The patient will be discharged from the mental health unit today he will likely reside with his son temporarily upon discharge. Social work will conduct a family meeting prior to discharge. Social work will arrange the patient's outpatient mental health follow-up. He will continue on Geodon 80 mg twice daily with food Zoloft 100 mg daily. The patient's metformin has been increased and he is been started on glipizide. The patient reports no previous use of alcohol or illicit drugs. There is no imminent safety risk he is appropriate for discharge from the mental health unit to outpatient care. He is aware that he is able to return to the hospital with any acute safety concerns. Patient Condition at Discharge: Stable Plan - Discharge Summary New Discharge Prescriptions: New glipiZIDE [Glucotrol] 2.5 mg PO AC-BID #60 tab metFORMIN HCL [Glucophage] 1,000 mg PO AC-BID #60 tab Ziprasidone [Geodon] 80 mg PO BID #60 cap Continue Atorvastatin [Lipitor] 40 mg PO DAILY Sertraline [Zoloft] 100 mg PO DAILY #30 Discontinued metFORMIN HCL [Glucophage] 500 mg PO BID Discharge Medication List Atorvastatin [Lipitor] 40 mg PO DAILY 05/15/17 [History] Sertraline [Zoloft] 100 mg PO DAILY #30 05/24/17 [Rx] Ziprasidone [Geodon] 80 mg PO BID #60 cap 05/24/17 [Rx] glipiZIDE [Glucotrol] 2.5 mg PO AC-BID #60 tab 05/24/17 [Rx] metFORMIN HCL [Glucophage] 1,000 mg PO AC-BID #60 tab 05/24/17 [Rx] Follow up Appointment(s)/Referral(s): Jessica Meza MD [Primary Care Provider] - 1-2 days Patient Instructions/Handouts: Suicide Prevention for Adults (GEN) Activity/Diet/Wound Care/Special Instructions: No alcohol or street drugs, activity as tolerated, and diet as tolerated. Remove all firearms from the home. Follow up with outpatient provider as set up at time of discharge, follow up with your primary care doctor in 1-2 days. Call the crisis line or [phone] if having thoughts of hurting yourself or others.
[2017-05-24 10:51] VITALS: BP 120/74; PULSE 81
== END 2017-05-24 11:11 | disposition home or self-care (01) | DRG 885 ==
LOC: EC 20:51 → 3MHU 05-16 00:04
PROVIDERS: ADMIT Psychiatry & Neurology Psychiatry; ATTEND Psychiatry & Neurology Psychiatry
DX: F25.9 Schizoaffective disorder, unspecified (principal); E11.65 Type 2 diabetes mellitus with hyperglycemia; F23 Brief psychotic disorder; Z78.1 Physical restraint status; E66.3 Overweight; G47.00 Insomnia, unspecified; F59 Unspecified behavioral syndromes associated with physiological disturbances and physical factors; F39 Unspecified mood [affective] disorder; F41.9 Anxiety disorder, unspecified; Z79.899 Other long term (current) drug therapy; Z87.891 Personal history of nicotine dependence; Z79.84 Long term (current) use of oral hypoglycemic drugs; Z71.3 Dietary counseling and surveillance; Z56.0 Unemployment, unspecified; Z81.8 Family history of other mental and behavioral disorders; Z91.14 Patient's other noncompliance with medication regimen; Z91.19 Patient's noncompliance with other medical treatment and regimen; Z91.5 Personal history of self-harm; Z75.2 Other waiting period for investigation and treatment
CPT/HCPCS: 36415; 80053; 80306; 82075; 83036; 84443; 85025; 99285

== ENCOUNTER 2017-05-27 18:42 | Inpatient (IN) | payer MEDICARE, MEDICAID ==
--- NOTE | 2017-05-27 19:03 | ED ---
Psych HPI - General Stated Complaint: Mental Health Time Seen by Provider: 05/27/17 18:53 Source: patient, RN notes reviewed Mode of arrival: EMS - History of Present Illness Initial Comments: This is a pleasant 46-year-old male who arrives via EMS from [place], [place]. Patient states that he was at his brother's house and over the past few days has been hearing voices telling him that he is going to be removed from the house. Patient states that he is also been seeing a black cat from time to time. Patient states that one week ago he was started on Geodon by Dr. Alcantara. He states that he believes the Geodon is causing headaches. Patient denies any recent illness. Patient denies any vision changes, no dizziness, no chest pain or shortness of breath, no abdominal pain. Patient does have a history of diabetes mellitus type 2, hypertension, and hyperlipidemia. Patient states he was riding in the car with his brother and had thoughts of grabbing the steering wheel and driving the car off the road. - Related Data Home Medications Medication Instructions Recorded Confirmed Atorvastatin [Lipitor] 40 mg PO DAILY 05/15/17 05/27/17 Previous Rx's Medication Instructions Recorded Sertraline [Zoloft] 100 mg PO DAILY #30 05/24/17 Ziprasidone [Geodon] 80 mg PO BID #60 cap 05/24/17 glipiZIDE [Glucotrol] 2.5 mg PO AC-BID #60 tab 05/24/17 metFORMIN HCL [Glucophage] 1,000 mg PO AC-BID #60 tab 05/24/17 Allergies Allergy/AdvReac Type Severity Reaction Status Date / Time No Known Allergies Allergy Verified 05/27/17 18:58 Review of Systems ROS Statement: Those systems with pertinent positive or pertinent negative responses have been documented in the HPI. ROS Other: All systems not noted in ROS Statement are negative. Past Medical History Past Medical History: Diabetes Mellitus, Hyperlipidemia, Hypertension History of Any Multi-Drug Resistant Organisms: None Reported Additional Past Surgical History / Comment(s): right shoulder Past Psychological History: Bipolar, Depression, Schizoaffective Disorder Smoking Status: Former smoker Past Alcohol Use History: None Reported General Exam - General Exam Comments Initial Comments: This is a 46-year-old male in no acute distress Limitations: no limitations General appearance: alert, in no apparent distress Head exam: Present: atraumatic, normocephalic, normal inspection Eye exam: Present: normal appearance, PERRL, EOMI. Absent: scleral icterus, conjunctival injection, periorbital swelling ENT exam: Present: normal exam, normal oropharynx, mucous membranes moist, TM's normal bilaterally, normal external ear exam Neck exam: Present: normal inspection. Absent: tenderness, meningismus, lymphadenopathy Respiratory exam: Present: normal lung sounds bilaterally. Absent: respiratory distress, wheezes, rales, rhonchi, stridor Cardiovascular Exam: Present: regular rate, normal rhythm, normal heart sounds. Absent: systolic murmur, diastolic murmur, rubs, gallop, clicks GI/Abdominal exam: Present: soft, normal bowel sounds. Absent: distended, tenderness, guarding, rebound, rigid Extremities exam: Present: normal inspection, full ROM, normal capillary refill. Absent: tenderness, pedal edema, joint swelling, calf tenderness Back exam: Present: normal inspection Neurological exam: Present: alert, oriented X3, CN II-XII intact Psychiatric exam: Present: normal mood, flat affect, other (Patient talking about driving a vehicle off the road, was riding with brother and thinking about grabbing the wheel and steering the car awry. Auditory and visual hallucinations). Absent: normal affect Skin exam: Present: warm, dry, intact, normal color. Absent: rash Course Vital Signs 05/27/17 05/27/17 18:45 22:10 Temperature 99.0 F 98.2 F Pulse Rate 107 H 83 Respiratory 20 18 Rate Blood Pressure 159/84 137/66 O2 Sat by Pulse 96 99 Oximetry - Reevaluation(s) Reevaluation #1: 05/27/17 20:04 Patient reevaluated and is resting comfortably in bed. Patient no acute distress. Time: 20:04 Medical Decision Making - Medical Decision Making Patient reevaluated and is resting comfortably in the room. Laboratory data is unremarkable. EKG did not show any evidence of acute changes. Patient awaiting EPS evaluation Patient turned over to Dr. Brito 11:13 PM for further evaluation and disposition - Differential Diagnosis Schizophrenia versus acute psychosis versus suicidal ideation - Lab Data Result diagrams: 05/27/17 19:05 05/27/17 19:05 Lab Results 05/27/17 05/27/17 05/27/17 Range/Units 19:02 19:05 19:05 WBC 8.7 (3.8-10.6) k/uL RBC 5.13 (4.30-5.90) m/uL Hgb 14.4 (13.0-17.5) gm/dL Hct 41.2 (39.0-53.0) % MCV 80.4 (80.0-100.0) fL MCH 28.2 (25.0-35.0) pg MCHC 35.0 (31.0-37.0) g/dL RDW 14.1 (11.5-15.5) % Plt Count 192 (150-450) k/uL Sodium 141 (137-145) mmol/L Potassium 3.7 (3.5-5.1) mmol/L Chloride 104 (98-107) mmol/L Carbon Dioxide 23 (22-30) mmol/L Anion Gap 14 mmol/L BUN 11 (9-20) mg/dL Creatinine 0.80 (0.66-1.25) mg/dL Est GFR (MDRD) Af Amer >60 (>60 ml/min/1.73 sqM) Est GFR (MDRD) Non-Af >60 (>60 ml/min/1.73 sqM) Glucose 196 H (74-99) mg/dL Calcium 9.9 (8.4-10.2) mg/dL Total Bilirubin 0.5 (0.2-1.3) mg/dL AST 23 (17-59) U/L ALT 42 (21-72) U/L Alkaline Phosphatase 80 (38-126) U/L Troponin I (0.000-0.034) ng/mL Total Protein 7.1 (6.3-8.2) g/dL Albumin 4.5 (3.5-5.0) g/dL TSH 1.910 (0.465-4.680) mIU/L Salicylates <1.0 mg/dL Urine Opiates Screen Not Detected (NotDetected) Ur Oxycodone Screen Not Detected (NotDetected) Urine Methadone Screen Not Detected (NotDetected) Ur Propoxyphene Screen Not Detected (NotDetected) Acetaminophen <10.0 ug/mL Ur Barbiturates Screen Not Detected (NotDetected) U Tricyclic Antidepress Not Detected (NotDetected) Ur Phencyclidine Scrn Not Detected (NotDetected) Ur Amphetamines Screen Not Detected (NotDetected) U Methamphetamines Scrn Not Detected (NotDetected) U Benzodiazepines Scrn Not Detected (NotDetected) Urine Cocaine Screen Not Detected (NotDetected) U Marijuana (THC) Screen Not Detected (NotDetected) 05/27/17 Range/Units 19:05 WBC (3.8-10.6) k/uL RBC (4.30-5.90) m/uL Hgb (13.0-17.5) gm/dL Hct (39.0-53.0) % MCV (80.0-100.0) fL MCH (25.0-35.0) pg MCHC (31.0-37.0) g/dL RDW (11.5-15.5) % Plt Count (150-450) k/uL Sodium (137-145) mmol/L Potassium (3.5-5.1) mmol/L Chloride (98-107) mmol/L Carbon Dioxide (22-30) mmol/L Anion Gap mmol/L BUN (9-20) mg/dL Creatinine (0.66-1.25) mg/dL Est GFR (MDRD) Af Amer (>60 ml/min/1.73 sqM) Est GFR (MDRD) Non-Af (>60 ml/min/1.73 sqM) Glucose (74-99) mg/dL Calcium (8.4-10.2) mg/dL Total Bilirubin (0.2-1.3) mg/dL AST (17-59) U/L ALT (21-72) U/L Alkaline Phosphatase (38-126) U/L Troponin I <0.012 (0.000-0.034) ng/mL Total Protein (6.3-8.2) g/dL Albumin (3.5-5.0) g/dL TSH (0.465-4.680) mIU/L Salicylates mg/dL Urine Opiates Screen (NotDetected) Ur Oxycodone Screen (NotDetected) Urine Methadone Screen (NotDetected) Ur Propoxyphene Screen (NotDetected) Acetaminophen ug/mL Ur Barbiturates Screen (NotDetected) U Tricyclic Antidepress (NotDetected) Ur Phencyclidine Scrn (NotDetected) Ur Amphetamines Screen (NotDetected) U Methamphetamines Scrn (NotDetected) U Benzodiazepines Scrn (NotDetected) Urine Cocaine Screen (NotDetected) U Marijuana (THC) Screen (NotDetected) - EKG Data -: EKG Interpreted by Me (EKG was done at 7:06 PM) EKG shows normal: axis, intervals, QRS complexes, ST-T waves Rate: tachycardia Disposition Referrals: Jessica Meza MD [Primary Care Provider] - 1-2 days
[2017-05-27 19:29] LABS: CH 29.2; CHCM 36.5; HCT 41.2 % (39.0-53.0); HDW 2.83; HGB 14.4 gm/dL (13.0-17.5); MCH 28.2 pg (25.0-35.0); MCV 80.4 fL (80.0-100.0); Mean Platelet Volume 8.4; RBC 5.13 m/uL (4.30-5.90); RDW 14.1 % (11.5-15.5); WBC 8.7 k/uL (3.8-10.6)
[2017-05-27 19:36] LABS: ALT 42 U/L (21-72); AST 23 U/L (17-59); Acetaminophen <10.0 ug/mL; Alkaline Phosphatase 80 U/L (38-126); Anion Gap 14 mmol/L; Blood Urea Nitrogen 11 mg/dL (9-20); Calcium 9.9 mg/dL (8.4-10.2); Carbon Dioxide 23 mmol/L (22-30); Chloride 104 mmol/L (98-107); Glucose 196 mg/dL (74-99); Non-African American GFR(MDRD) >60 (>60 ml/min/1.73 sqM); Potassium 3.7 mmol/L (3.5-5.1); Salicylate <1.0 mg/dL; Sodium 141 mmol/L (137-145); Total Bilirubin 0.5 mg/dL (0.2-1.3); Total Protein 7.1 g/dL (6.3-8.2)
[2017-05-27] MEDS ORDERED: ACETAMINOPHEN TAB 500 MG TAB PO STA (22:41)
[2017-05-28] MEDS ORDERED: MAG HYDROX/AL HYDROX/SIMETH 30 ML CUP PO PRN (03:05)
[2017-05-28] MEDS ORDERED: MAGNESIUM HYDROXIDE 2,400 MG/10 ML CUP PO PRN (03:05)
[2017-05-28] MEDS ORDERED: ACETAMINOPHEN TAB 325 MG TAB PO PRN (03:05)
[2017-05-28] MEDS: LORazepam 1 MG TAB PO PRN ×2 (05:13→20:04)
[2017-05-28 05:55] LABS: Glucose,Whole Blood 177 mg/dL (75-99)
[2017-05-28] MEDS: SERTRALINE 100 MG TAB PO SCH (08:34)
[2017-05-28] MEDS: metFORMIN 500 MG TAB PO SCH ×2 (08:34→17:10)
[2017-05-28] MEDS: ATORVASTATIN 40 MG TAB PO SCH (08:34)
[2017-05-28 09:59] LABS: Basophils % (A) 0 %; CH 28.4; CHCM 35.3; Eosinophils # (A) 0.1 k/uL (0-0.7); Eosinophils % (A) 1 %; HCT 44.2 % (39.0-53.0); HDW 2.93; HGB 15.6 gm/dL (13.0-17.5); Luc # (Auto) 0.08; Luc % (Auto) 1; Lymphocytes # (A) 1.1 k/uL (1.0-4.8); Lymphocytes % (A) 15 %; MCH 28.4 pg (25.0-35.0); MCHC 35.2 g/dL (31.0-37.0); MCV 80.7 fL (80.0-100.0); Mean Platelet Volume 7.9; Monocytes # (A) 0.4 k/uL (0-1.0); Monocytes % (A) 5 %; Neutrophils # (A) 5.7 k/uL (1.3-7.7); Neutrophils % (A) 78 %; RBC 5.48 m/uL (4.30-5.90); RDW 12.6 % (11.5-15.5); WBC 7.4 k/uL (3.8-10.6); WBC (Perox) 7.55
[2017-05-28 10:29] LABS: ALT 40 U/L (21-72); AST 28 U/L (17-59); Alkaline Phosphatase 78 U/L (38-126); Anion Gap 11 mmol/L; Blood Urea Nitrogen 10 mg/dL (9-20); Calcium 9.6 mg/dL (8.4-10.2); Carbon Dioxide 25 mmol/L (22-30); Chloride 104 mmol/L (98-107); Glucose 187 mg/dL (74-99); Non-African American GFR(MDRD) >60 (>60 ml/min/1.73 sqM); Potassium 4.2 mmol/L (3.5-5.1); Sodium 140 mmol/L (137-145); Total Bilirubin 0.9 mg/dL (0.2-1.3); Total Protein 7.1 g/dL (6.3-8.2)
--- NOTE | 2017-05-28 14:26 | P.HP ---
Psychiatric H&P - . H&P Date: 05/28/17 History & Physical: Allergies Allergy/AdvReac Type Severity Reaction Status Date / Time No Known Allergies Allergy Verified 05/27/17 18:58 Vital Signs Temp 97.9 F 05/28/17 02:21 Pulse 73 05/28/17 02:21 Resp 16 05/28/17 02:21 BP 142/74 05/28/17 00:42 Pulse Ox 99 05/28/17 00:42 Intake & Output 05/27/17 05/28/17 05/28/17 18:59 06:59 18:59 Weight 108.862 kg 104.9 kg Laboratory Last Values WBC 7.4 k/uL (3.8-10.6) 05/28/17 09:38 RBC 5.48 m/uL (4.30-5.90) 05/28/17 09:38 Hgb 15.6 gm/dL (13.0-17.5) 05/28/17 09:38 Hct 44.2 % (39.0-53.0) 05/28/17 09:38 MCV 80.7 fL (80.0-100.0) 05/28/17 09:38 MCH 28.4 pg (25.0-35.0) 05/28/17 09:38 MCHC 35.2 g/dL (31.0-37.0) 05/28/17 09:38 RDW 12.6 % (11.5-15.5) 05/28/17 09:38 Plt Count 202 k/uL (150-450) 05/28/17 09:38 Neutrophils % 78 % 05/28/17 09:38 Lymphocytes % 15 % 05/28/17 09:38 Monocytes % 5 % 05/28/17 09:38 Eosinophils % 1 % 05/28/17 09:38 Basophils % 0 % 05/28/17 09:38 Neutrophils # 5.7 k/uL (1.3-7.7) 05/28/17 09:38 Lymphocytes # 1.1 k/uL (1.0-4.8) 05/28/17 09:38 Monocytes # 0.4 k/uL (0-1.0) 05/28/17 09:38 Eosinophils # 0.1 k/uL (0-0.7) 05/28/17 09:38 Basophils # 0.0 k/uL (0-0.2) 05/28/17 09:38 Sodium 140 mmol/L (137-145) 05/28/17 09:38 Potassium 4.2 mmol/L (3.5-5.1) 05/28/17 09:38 Chloride 104 mmol/L (98-107) 05/28/17 09:38 Carbon Dioxide 25 mmol/L (22-30) 05/28/17 09:38 Anion Gap 11 mmol/L 05/28/17 09:38 BUN 10 mg/dL (9-20) 05/28/17 09:38 Creatinine 0.76 mg/dL (0.66-1.25) 05/28/17 09:38 Est GFR (MDRD) Af Amer >60 (>60 ml/min/1.73 sqM) 05/28/17 09:38 Est GFR (MDRD) Non-Af >60 (>60 ml/min/1.73 sqM) 05/28/17 09:38 Glucose 187 mg/dL (74-99) H 05/28/17 09:38 POC Glucose (mg/dL) 177 mg/dL (75-99) H 05/28/17 05:52 POC Glu School Supervisor ID Brittany Laguerre 05/28/17 05:52 Calcium 9.6 mg/dL (8.4-10.2) 05/28/17 09:38 Total Bilirubin 0.9 mg/dL (0.2-1.3) 05/28/17 09:38 AST 28 U/L (17-59) 05/28/17 09:38 ALT 40 U/L (21-72) 05/28/17 09:38 Alkaline Phosphatase 78 U/L (38-126) 05/28/17 09:38 Troponin I <0.012 ng/mL (0.000-0.034) 05/27/17 19:05 Total Protein 7.1 g/dL (6.3-8.2) 05/28/17 09:38 Albumin 4.4 g/dL (3.5-5.0) 05/28/17 09:38 TSH 1.910 mIU/L (0.465-4.680) 05/27/17 19:05 Salicylates <1.0 mg/dL 05/27/17 19:05 Urine Opiates Screen Not Detected (NotDetected) 05/27/17 19:02 Ur Oxycodone Screen Not Detected (NotDetected) 05/27/17 19:02 Urine Methadone Screen Not Detected (NotDetected) 05/27/17 19:02 Ur Propoxyphene Screen Not Detected (NotDetected) 05/27/17 19:02 Acetaminophen <10.0 ug/mL 05/27/17 19:05 Ur Barbiturates Screen Not Detected (NotDetected) 05/27/17 19:02 U Tricyclic Antidepress Not Detected (NotDetected) 05/27/17 19:02 Ur Phencyclidine Scrn Not Detected (NotDetected) 05/27/17 19:02 Ur Amphetamines Screen Not Detected (NotDetected) 05/27/17 19:02 U Methamphetamines Scrn Not Detected (NotDetected) 05/27/17 19:02 U Benzodiazepines Scrn Not Detected (NotDetected) 05/27/17 19:02 Urine Cocaine Screen Not Detected (NotDetected) 05/27/17 19:02 U Marijuana (THC) Screen Not Detected (NotDetected) 05/27/17 19:02 05/28/17 13:51 Identification: Patient is a 46-year-old male who was recently discharged from the psychiatric unit on May 24, he presented to the emergency room stating that the devil was taking over his body and he reported to the sitter that he wanted to have sex with 7-year-old girls. History of Present Illness: Patient states that when he was discharged he spent the first 2 days with his son's mother and had no difficulty at that time, he then went to stay with his brother for 2 days and states this is when he began to have difficulties. He states that while he and his brother were in the car he had a thought to grab the wheel and turn it and so put his hands in his pockets and asked his brother to frame pulley mortising machine operator so he could sit in the back of the car. He reported that he has been having "really bad headaches" and saying things that make no sense to him. He told me that he speaking and the voices are talking and he understands that he is saying them but states that they are not his thoughts. He gave me an example of this such as "I am Satan", "I am going to , God hates me" it is also noted in the chart that the patient when he presented to the emergency room stated that the devil was taking over his body and that he reported to one of the aides that he wanted to have sex with 7-year-old girls. Patient states that these began after his discharge. He states he has not been able to sit still and feels like he constantly needs to get up when he sitting or lying down and states that he has not been able to sleep. He states he is confused about his diagnosis and doesn't know if the medications have made him worse or not. Patient could not report any precipitant to his recurrence of symptoms and states that he has been compliant with the medication at home. Past Psychiatric History: This is the patient's third psychiatric admission his first was in August 2016 and his most recent was from May 16 until 2016. Patient was discharged on Geodon 80 mg twice a day and Zoloft 100 mg a day. Patient has been tried on Latuda and Abilify in the past. Patient stated to me that he had [facility] and placed on Abilify at that time because he was having paranoid ideation he states that he continued the medication for 1 year and discontinued it and received no treatment until his admission here in 2015. He states that he has been on Wellbutrin and Prozac in the past and was placed on Wellbutrin in 2006 by his primary care physician. Past Medical/Surgical History: Patient has a history of diabetes mellitus is controlled with metformin and glipizide Home Medications Medication Instructions Recorded Confirmed RX: Atorvastatin [Lipitor] 40 mg PO DAILY 05/15/17 05/28/17 Previous Rx's Medication Instructions Recorded RX: Sertraline [Zoloft] 100 mg PO DAILY #30 05/24/17 RX: Ziprasidone [Geodon] 80 mg PO BID #60 cap 05/24/17 RX: glipiZIDE [Glucotrol] 2.5 mg PO AC-BID #60 tab 05/24/17 RX: metFORMIN HCL [Glucophage] 1,000 mg PO AC-BID #60 tab 05/24/17 Family History: Patient states that he has a maternal grandmother who was diagnosed with schizophrenia and denies any completed suicides in the family and reports no substance or alcohol abuse history. Social History: Patient's parents are both and he has been since 2005. He has 2 children with his current and states he has 3 children from a prior relationship. His also has 2 children from a prior relationship. Patient has 3 children at home with his ages 17, 10, and 4 and states that he has not returned home since his discharge on May 24. Patient states that he's been disabled since 2011 and has not worked and states that his disability was due to his paranoia. Substance Use History: Patient denies any alcohol or substance abuse history currently or in the past and has not a tobacco user. Legal History: Patient denies any history. Mental Status:Appearance/Attitude: Patient was found in his room and came to the interview room and was appropriately dressed and made good eye contact and was cooperative. Behavior: Patient did not exhibit any psychomotor agitation or retardation but did complain of feeling restless and needing to feel like he needed to stand up or move constantly. Speech/Language: Patient's speech was spontaneous and of normal volume and rhythm and he was coherent. Thought Process: Patient was goal-directed and he was not circumstantial or tangential and there was no loose associations or flight of ideas. Thought Content: Patient reported that he is hearing voices that were telling him to hang himself or kill himself prior to admission, he denies any visual hallucinations. Patient reports talking and verbalizing other people's thoughts and wonders if this is his subconscious, making statements that "I am Satan", "I'm going to , God hates me". He states he is bothered by these thoughts and they make no sense to him and he is not clear why he is saying things as above or other statements that he is "a child molester". Patient states that he is not feeling paranoid. Suicidal/Homicidal Ideation: Patient reports no current suicidal or homicidal ideation and states he is no longer hearing command hallucinations to telling him to hang or kill himself. Sensorium/Cognition: Patient was alert and oriented to person, place, and time and his memory is grossly intact. Mood/Affect: Patient's mood is depressed and he is hopeless that "this will never end" and his affect is blunted. Insight/Judgement: Patient's insight and judgment are fair. Intellectual Functioning: Patient's intellectual functioning appears average. Strength/Weaknesses: Patient has a supportive family, compliance with medication Assessment: Patient returns to the hospital after return of auditory hallucinations telling him to kill himself or hang himself as well as disturbing thoughts that he is verbalizing that he says make no sense to him as stated above. Patient states he is more bothered by the thoughts because they make no sense to him. He is also reporting poor sleep and a feeling of needing to constantly be on the move. Patient was also having command hallucinations telling him to hang or kill himself but states he is no longer having those and does not want to . Admission Diagnoses: Psychotic disorder, rule out schizoaffective disorder, rule out schizophrenia Plan: Patient was admitted on a voluntary basis and routine laboratory studies were obtained, group and activity therapy were ordered patient was placed on routine precautions and a medical consultation was requested. Patient was continued on his metformin and glipizide to control his blood sugars as well as Lipitor for hyperlipidemia. Patient was restarted on his Zoloft 100 mg daily to target his depression and a decreased his Geodon to 60 mg twice a day due to his complaints of akathisia. I will let Dr. Alcantara review his medications and assess if he wishes to continue Geodon or not. I discussed this with the patient and he was agreeable. Patient did report since not having Geodon last evening or this morning he is feeling less restless. Patient requires hospitalization due to his psychotic symptomatology as well as his suicidal ideation and command hallucinations. 05/28/17 14:09 05/28/17 14:15
--- NOTE | 2017-05-28 15:45 | P.CONS ---
History of Present Illness - Reason for Consult Consult date: 05/28/17 - History of Present Illness 46-year-old gentleman with a past medical history of diabetes mellitus hypertension was admitted for psychiatric evaluation. The patient is complaining of headaches. Patient is also complaining of grinding of teeth. No chest pain palpitation. Review of Systems REVIEW OF SYSTEMS: ENT: No diminished vision or hearing. CARDIOVASCULAR: Mentioned earlier. RESPIRATORY: As mentioned earlier. GI: No nauscea, vomiting or diarrhea. : No dysuria or retention. NERVOUS SYSTEM: No numbness or weakness. ALLERGY/IMMUNOLOGY: No asthma or hay fever. MUSCULOSKELETAL: As mentioned earlier. HEMATOLOGY/ONCOLOGY: No history of anemia. ENDOCRINE: No history of diabetes or hypothyroidism. CONSTITUTIONAL: As mentioned earlier. DERMATOLOGY: Negative. PSYCHIATRY: Mentioned earlier. RHEUMATOLOGY: Negative. Past Medical History Past Medical History: Diabetes Mellitus, Hyperlipidemia, Hypertension History of Any Multi-Drug Resistant Organisms: None Reported Additional Past Surgical History / Comment(s): right shoulder Smoking Status: Former smoker Medications and Allergies Home Medications Medication Instructions Recorded Confirmed Type Atorvastatin [Lipitor] 40 mg PO DAILY 05/15/17 05/28/17 History Allergies Allergy/AdvReac Type Severity Reaction Status Date / Time No Known Allergies Allergy Verified 05/27/17 18:58 Physical Exam Vitals: Vital Signs Temp Pulse Pulse Resp BP Pulse Ox 05/28/17 02:21 97.9 F 73 16 05/28/17 00:42 98 F 78 15 142/74 99 05/27/17 22:10 98.2 F 83 18 137/66 99 05/27/17 18:45 99.0 F 107 H 20 159/84 96 Intake and Output 05/28/17 05/28/17 05/28/17 06:59 14:59 22:59 Other: Weight 104.9 kg 104.6 kg Patient Weight 05/29/17 06:59 Weight 104.6 kg On exam, alert and oriented x3. HEENT: Conjunctivae normal. eyes normal. NECK: No JVD. No thyroid enlargement. No LNs CARDIOVASCULAR: S1, S2 muffled. No murmur RESPIRATION: Breath sounds diminished in the bases. No rhonchi or crackles. No bronchial breathing. ABDOMEN: Soft, nontender . No guarding. no masses palpable. No ascites, No hepatosplenomegaly.Bowel sounds heard. LEGS: No edema. no swelling NERVOUS SYSTEM: Cranial N 2-12 grossly normal. Moves all 4 limbs. No focal deficits. No sensory deficit. No signs of cerebellar dysfucntion. Skin: no ulcer no rash Joints: No active swelling. No inflammation. Lymphatic system. No LN neck axilla or groin. Results CBC & Chem 7: 05/28/17 09:38 05/28/17 09:38 Labs: Abnormal Lab Results - Last 24 Hours (Table) 05/27/17 05/28/17 05/28/17 Range/Units 19:05 05:52 09:38 Glucose 196 H 187 H (74-99) mg/dL POC Glucose (mg/dL) 177 H (75-99) mg/dL Assessment and Plan Plan: Assessment #1 diabetes mellitus #2 hyperlipidemia #3 hypertension #4 bruxism 5 psychiatric evaluation Plan In this 46-year-old gentleman was admitted for psych evaluation I would recommend to continue current medications. Monitor blood sugars closely. Symptomatic treatment. Resume home medications. Recommend close follow-up with the Dr. Meza after discharge. Thank you.
[2017-05-28 17:25] LABS: Glucose,Whole Blood 141 mg/dL (75-99)
[2017-05-28] MEDS: INSULIN LISPRO (humaLOG) 300 UNIT/3 ML VIAL SQ SCH ×2 (17:41→20:00)
[2017-05-28 19:52] LABS: Glucose,Whole Blood 179 mg/dL (75-99)
[2017-05-28 21:41] LABS: Hemoglobin A1C 9.3 % (4.2-6.1)
[2017-05-29 06:43] LABS: Glucose,Whole Blood 158 mg/dL (75-99)
[2017-05-29] MEDS: ATORVASTATIN 40 MG TAB PO SCH (08:00)
[2017-05-29] MEDS: metFORMIN 500 MG TAB PO SCH ×2 (08:00→17:44)
[2017-05-29] MEDS: SERTRALINE 100 MG TAB PO SCH (08:00)
[2017-05-29] MEDS: INSULIN LISPRO (humaLOG) 300 UNIT/3 ML VIAL SQ SCH ×4 (08:00→20:29)
--- NOTE | 2017-05-29 10:16 | P.PN ---
Progress Note - Text Interval history: The patient is found in his room he follows me to an interview room. The patient was readmitted to the psychiatric unit as he felt overwhelmed with recurring psychosis. On the day of discharge she felt that the psychosis was much improved and he felt safe. He states when he went home he thinks the continued use of Geodon caused his hallucinations to worsen. He reported command hallucinations directing him to grab the steering wheel of the vehicle he was a passenger in. He reported the hallucination was directing him to say inappropriate things such as wanting to have sex with a 7-year-old. He describes symptoms of akathisia with the Geodon and feels that they are resolving. He also reported having cephalgia which seems to be resolving. We discussed that he has now tried Latuda, Abilify, Geodon. Discussed other medications to address his reported symptoms of psychosis. He states he has not slept in several days. Mental status exam: The patient is an overweight male he has a disheveled appearance he is dressed in his own clothing. He reports a dysphoric mood he reports feeling fearful. He continues to ask why he is experiencing symptoms of psychosis. He reports command auditory hallucinations. Previously he felt that he was demonically possessed. He states that is less likely but is concerned regarding the hallucinations. He reports feeling safe here in the mental health unit. He demonstrates no verbal or physical aggressiveness. He is briefly irritable in conversation but is redirectable. Plan: The patient has been taken off of Geodon. We will initiate Seroquel 100 mg at bedtime. We discussed continuing the Geodon in trying to manage symptoms of acmesthesia but he feels he cannot continue with Geodon. We will titrate the Seroquel during the course of his hospital stay. We will monitor his reported symptoms of psychosis. Vital signs reviewed.
[2017-05-29 12:22] LABS: Glucose,Whole Blood 109 mg/dL (75-99)
[2017-05-29 15:22] VITALS: BMI 32.1
[2017-05-29 17:36] LABS: Glucose,Whole Blood 134 mg/dL (75-99)
[2017-05-29 20:40] LABS: Glucose,Whole Blood 134 mg/dL (75-99)
[2017-05-29] MEDS: LORazepam 1 MG TAB PO PRN (20:46)
[2017-05-29] MEDS ORDERED: QUEtiapine 100 MG TAB PO SCH (21:00)
[2017-05-30 06:31] LABS: Glucose,Whole Blood 144 mg/dL (75-99)
[2017-05-30] MEDS: INSULIN LISPRO (humaLOG) 300 UNIT/3 ML VIAL SQ SCH ×4 (08:14→20:44)
[2017-05-30] MEDS: SERTRALINE 100 MG TAB PO SCH (08:16)
[2017-05-30] MEDS: metFORMIN 500 MG TAB PO SCH ×2 (08:16→17:49)
[2017-05-30] MEDS: ATORVASTATIN 40 MG TAB PO SCH (08:17)
--- NOTE | 2017-05-30 10:15 | P.PN ---
Progress Note - Text Interval history: The patient's is found in his bed sleeping he follows me to an interview room. He reports that he slept much better last night. He states that he feels sick referring to nausea and a dizzy feeling. Vital signs reviewed. He states that he did eat his breakfast this morning. He reports attending goalsetting group but has missed social work group so far. He reports that his voices have subsided and he believes it's due to the discontinuation of Geodon. He feels that Seroquel did assist him with sleeping and we discussed titrating that medication further. He states that he is not possessed by the devil. He reports intermittently hearing the voices. Again they continue to be derogatory. Mental status exam: The patient is a disheveled overweight male appearing his stated age. He seated calmly. He maintains a constricted affect. He reports feeling better in the sense that he slept and that the voices have decreased but feels physically ill. He feels safe in the hospital he is voicing no suicidal or homicidal ideation. He continues to express his concern over the presence of psychosis recently. He demonstrates no abnormal involuntary movements he is able to remain calmly seated in his chair. He demonstrates no verbal or physical aggressiveness. Plan: The patient will continue on the Seroquel we will increase the dose to 200 mg at bedtime. He will continue the Zoloft. We will monitor him for safety. He is encouraged to get out of bed during the day and attending groups.
[2017-05-30 12:39] LABS: Glucose,Whole Blood 87 mg/dL (75-99)
[2017-05-30 12:59] LABS: Appearance,Urine Clear (Clear); Bilirubin,Urine Negative (Negative); Glucose,Urine (UA) 4+ (Negative); Ketones,Urine Negative (Negative); Leukocyte Esterase,Urine Negative (Negative); Nitrite,Urine Negative (Negative); PH, Urine 5.5 (5.0-8.0); Protein,Urine Negative (Negative); Specific Gravity,Urine 1.017 (1.001-1.035); UA Billing (MACRO vs. MICRO) CHEM; Urobilinogen,Urine <2.0 mg/dL (<2.0)
[2017-05-30 17:58] LABS: Glucose,Whole Blood 126 mg/dL (75-99)
[2017-05-30 20:07] LABS: Glucose,Whole Blood 167 mg/dL (75-99)
[2017-05-30] MEDS: LORazepam 1 MG TAB PO PRN (20:44)
[2017-05-30] MEDS ORDERED: QUEtiapine 200 MG TAB PO SCH (21:00)
[2017-05-31 06:34] LABS: Glucose,Whole Blood 113 mg/dL (75-99)
[2017-05-31] MEDS: INSULIN LISPRO (humaLOG) 300 UNIT/3 ML VIAL SQ SCH ×4 (07:38→20:36)
[2017-05-31] MEDS: metFORMIN 500 MG TAB PO SCH ×2 (07:58→17:20)
[2017-05-31] MEDS: ATORVASTATIN 40 MG TAB PO SCH (07:59)
[2017-05-31] MEDS: SERTRALINE 100 MG TAB PO SCH (07:59)
--- NOTE | 2017-05-31 11:07 | P.PN ---
Progress Note - Text Interval history: The patient's is found in the [facility] he follows me to an interview room. Staff report that patient has been doing better he was participating in group reporting improvement of symptoms. Today with me he states that the voices are becoming worse in terms of frequency and they continued he derogatory. He continues to feel that the Geodon worsened psychosis but believes the Seroquel could be helping. He has been sleeping throughout the night he does continue to use the Ativan he is instructed not to use Ativan. We discussed titrating the Seroquel to 300 mg at bedtime and he is agreeable. Appetite has improved. Mental status exam: The patient is an overweight male appearing his stated age. Hygiene grooming adequate. Speech is fluent spontaneous nonpressured. He reports the hallucinations are more frequent today. Mood is "good". Affect is congruent to reported mood. He demonstrates no verbal or physical aggressiveness. There are no observed involuntary abnormal movements. He does not appear hypomanic or manic. He can be circumstantial but there is no evidence of tangential thinking loose associations or flight of ideas. Plan: The patient will continue on the Seroquel we will titrate the dose to 300 mg at bedtime. The Seroquel may require further titration. We will continue to monitor him for safety. Vital signs reviewed. We will consider discharge Monday if clinically appropriate.
[2017-05-31 12:09] LABS: Glucose,Whole Blood 105 mg/dL (75-99)
[2017-05-31 16:47] LABS: Glucose,Whole Blood 121 mg/dL (75-99)
[2017-05-31 20:01] LABS: Glucose,Whole Blood 138 mg/dL (75-99)
[2017-05-31] MEDS: QUEtiapine 100 MG TAB PO SCH (20:34)
[2017-06-01 06:28] LABS: Glucose,Whole Blood 131 mg/dL (75-99)
[2017-06-01] MEDS: SERTRALINE 100 MG TAB PO SCH (08:13)
[2017-06-01] MEDS: metFORMIN 500 MG TAB PO SCH ×2 (08:13→17:20)
[2017-06-01] MEDS: ATORVASTATIN 40 MG TAB PO SCH (08:13)
[2017-06-01] MEDS: INSULIN LISPRO (humaLOG) 300 UNIT/3 ML VIAL SQ SCH ×4 (08:14→20:13)
--- NOTE | 2017-06-01 12:33 | P.PN ---
Progress Note - Text Interval History: Patient is a 46-year-old male who is being seen in coverage for Dr. Alcantara. Patient was seen today and he reports that his Seroquel was increased to 300 mg last night and he slept well. He states he is not feeling restless as he was on the Geodon. He stated that he continued to hear voices that began about 7 PM last night but he did sleep well. He states the voices state "you will never get rid of me, medication won't work". Patient reports that he is trying to ignore the voices. He states that he did not request any Ativan last night and reports that he feels a little less depressed. He reports no current suicidal ideation. He stated that the voices were more in the background this morning. Patient had no other concerns at this time but stated to me that he thinks the Seroquel isn't at a high enough dose yet. Mental Status: Appearance/Attitude: Patient was neatly and appropriately dressed , he made good eye contact and was cooperative during the interview. Behavior: Patient did not display any psychomotor agitation or retardation. Speech/Language: Patient's speech was spontaneous, normal volume and rhythm and he was coherent. Thought Process: Patient was goal-directed and there was no evidence of circumstantial or tangential thought and no flight of ideas or loose associations. Thought Content: Patient continues to hear auditory hallucinations and states that they're telling him that he will "never get rid of me, meds won't work" patient states he is trying to ignore them and that they are more in the background this morning. He denies any visual hallucinations. Patient did not express any delusional ideation and no paranoid ideation was elicited. Patient states that he slept well and his appetite is good. Patient did not use any Ativan last night to assist with his sleep. Suicidal/Homicidal Ideation: Patient denies any current suicidal or homicidal ideation. Sensorium/Cognition: Patient is alert and oriented to person, place, and time and his memory is grossly intact. Mood/Affect: Patient states his mood is slightly less depressed and his affect is appropriate. Insight/Judgement: Patient's insight and judgment are fair. Assessment: Patient reported that the voices were becoming less intrusive and more in the background but they do continue. Patient reported no suicidal thoughts and did not verbalize any delusional ideation to me. He reports not feeling restless and slept better last night with the increase in the Seroquel. Patient has been attending groups and activities. He reported no side effects from the medication. Plan: Patient will continue on Zoloft 100 mg to target his depression and Seroquel 300 mg at bedtime to target his psychotic symptoms. Patient was encouraged to continue to attend groups and activities and to continue to avoid using Ativan to assist with his sleep at night. Patient requires hospitalization due to his continued psychotic symptoms.
[2017-06-01 12:51] LABS: Glucose,Whole Blood 80 mg/dL (75-99)
[2017-06-01 16:46] LABS: Glucose,Whole Blood 133 mg/dL (75-99)
[2017-06-01 19:53] LABS: Glucose,Whole Blood 150 mg/dL (75-99)
[2017-06-01] MEDS: QUEtiapine 100 MG TAB PO SCH (20:14)
[2017-06-02] MEDS: LORazepam 1 MG TAB PO PRN (00:42)
[2017-06-02 06:07] LABS: Glucose,Whole Blood 129 mg/dL (75-99)
[2017-06-02] MEDS: INSULIN LISPRO (humaLOG) 300 UNIT/3 ML VIAL SQ SCH ×4 (07:50→20:56)
[2017-06-02] MEDS: metFORMIN 500 MG TAB PO SCH ×2 (07:56→17:11)
[2017-06-02] MEDS: ATORVASTATIN 40 MG TAB PO SCH (09:17)
[2017-06-02] MEDS: SERTRALINE 100 MG TAB PO SCH (09:19)
--- NOTE | 2017-06-02 10:23 | P.PN ---
Progress Note - Text Interval history: The patient is found in group he follows me to an interview room. The patient expresses more concern today regarding his symptoms of psychosis. He feels that just lately the voices have become more prevalent and are telling him that no matter what happens he will be back here in the hospital or will be sent to a "nut house". He reported some difficulty sleeping last evening. He again used the Ativan. We discussed alternatives. We discussed titrating the Seroquel further to 400 mg at bedtime he is agreeable. We discussed giving the medicine sufficient time to demonstrate efficacy and we cannot expect day-to-day changes because of titrations we're making. He is scheduled to have a support meeting with his this afternoon. Mental status exam: The patient is an alert overweight male he demonstrates adequate hygiene grooming eye contact is appropriate speech is fluent spontaneous nonpressured. He maintains a constricted affect. He endorses concern over his symptoms of psychosis he is worried that should he go home "the same thing will happen". He feels he can lose control of himself if the voices returned stronger. He states that the hallucinations although more prevalent and louder today are directing no self-harm or harm to others. He has no thoughts of harming himself or others. He does not appear hypomanic or manic. Insight and judgment limited. He demonstrates no verbal or physical aggressiveness. He remains oriented to person place and date. Plan: The patient will continue on Seroquel we will titrate the dose to 400 mg at bedtime to further address his symptoms of psychosis. We discussed following him further evaluating his psychosis and considering a discharge Monday. Vital signs reviewed.
[2017-06-02 12:40] LABS: Glucose,Whole Blood 108 mg/dL (75-99)
[2017-06-02 16:57] LABS: Glucose,Whole Blood 120 mg/dL (75-99)
[2017-06-02 20:02] LABS: Glucose,Whole Blood 135 mg/dL (75-99)
[2017-06-02] MEDS ORDERED: QUEtiapine 400 MG TAB PO SCH (21:00)
[2017-06-03 06:23] LABS: Glucose,Whole Blood 119 mg/dL (75-99)
[2017-06-03] MEDS: INSULIN LISPRO (humaLOG) 300 UNIT/3 ML VIAL SQ SCH ×4 (07:37→20:27)
[2017-06-03] MEDS: metFORMIN 500 MG TAB PO SCH ×2 (07:54→17:28)
[2017-06-03] MEDS: ATORVASTATIN 40 MG TAB PO SCH (08:51)
[2017-06-03] MEDS: SERTRALINE 100 MG TAB PO SCH (08:51)
--- NOTE | 2017-06-03 10:31 | P.PN ---
Progress Note - Text Interval history: The patient is found in group he follows me to an interview room. He continues to report auditory hallucinations however he states they seem to be decreasing. He expresses some concern that they will worsen and he is not sure what will happen once discharged. He states his mood is depressed today because of these concerns. Sleep has been stable appetite stable he continues to participate in groups. Vital signs reviewed they're within normal limits. Mental status exam: The patient is an overweight male appearing his stated age. He is dressed in his own clothing. Eye contact is appropriate speech is fluent spontaneous nonpressured. He endorses ongoing derogatory auditory hallucinations but no visual hallucinations. He endorses no physical focal neurologic symptoms. He verbalizes no visual complaints. He continues to ask if he has schizophrenia and we discussed that he is reporting symptoms of psychosis and described those in detail. At length he discusses that his grandmother had schizophrenia. Insight and judgment limited. He demonstrates no verbal or physical aggressiveness. He demonstrates no abnormal involuntary movements. He remains oriented to person place and date. Plan: The patient's will continue on the Seroquel we will increase to 500 mg at bedtime. We will continue to monitor for safety and encourage his participation in the milieu. It does appear symptoms of psychosis are slowly responding to the Seroquel.
[2017-06-03 12:34] LABS: Glucose,Whole Blood 91 mg/dL (75-99)
[2017-06-03 17:11] LABS: Glucose,Whole Blood 110 mg/dL (75-99)
[2017-06-03] MEDS: QUEtiapine 200 MG TAB PO SCH (20:23)
[2017-06-03 20:27] LABS: Glucose,Whole Blood 155 mg/dL (75-99)
[2017-06-03] MEDS: LORazepam 1 MG TAB PO PRN (21:18)
[2017-06-03] MEDS: METOPROLOL TARTRATE 12.5 MG TAB PO SCH (21:33)
[2017-06-03 21:56] LABS: Basophils % (A) 0 %; CH 28.2; CHCM 35.7; Eosinophils # (A) 0.1 k/uL (0-0.7); Eosinophils % (A) 1 %; HCT 41.6 % (39.0-53.0); HGB 14.9 gm/dL (13.0-17.5); Luc # (Auto) 0.15; Luc % (Auto) 3; Lymphocytes # (A) 1.5 k/uL (1.0-4.8); Lymphocytes % (A) 25 %; MCH 28.4 pg (25.0-35.0); MCHC 35.8 g/dL (31.0-37.0); MCV 79.2 fL (80.0-100.0); Mean Platelet Volume 7.2; Monocytes # (A) 0.3 k/uL (0-1.0); Monocytes % (A) 6 %; Neutrophils # (A) 3.9 k/uL (1.3-7.7); Neutrophils % (A) 65 %; RBC 5.25 m/uL (4.30-5.90); RDW 12.5 % (11.5-15.5); WBC 5.9 k/uL (3.8-10.6); WBC (Perox) 5.97
[2017-06-03 22:11] LABS: ALT 41 U/L (21-72); AST 22 U/L (17-59); Alkaline Phosphatase 80 U/L (38-126); Anion Gap 15 mmol/L; Blood Urea Nitrogen 12 mg/dL (9-20); Carbon Dioxide 24 mmol/L (22-30); Chloride 102 mmol/L (98-107); Glucose 215 mg/dL (74-99); Non-African American GFR(MDRD) >60 (>60 ml/min/1.73 sqM); Potassium 3.6 mmol/L (3.5-5.1); Sodium 141 mmol/L (137-145); Total Bilirubin 0.5 mg/dL (0.2-1.3); Total Protein 7.1 g/dL (6.3-8.2)
[2017-06-04 06:58] LABS: Glucose,Whole Blood 120 mg/dL (75-99)
[2017-06-04] MEDS: INSULIN LISPRO (humaLOG) 300 UNIT/3 ML VIAL SQ SCH ×4 (08:04→20:10)
[2017-06-04] MEDS: SERTRALINE 100 MG TAB PO SCH (08:06)
[2017-06-04] MEDS: metFORMIN 500 MG TAB PO SCH ×2 (08:06→18:01)
[2017-06-04] MEDS: METOPROLOL TARTRATE 12.5 MG TAB PO SCH ×2 (08:07→20:12)
[2017-06-04] MEDS: ATORVASTATIN 40 MG TAB PO SCH (08:07)
[2017-06-04 08:10] VITALS: RESP 16
[2017-06-04 12:26] LABS: Glucose,Whole Blood 122 mg/dL (75-99)
--- NOTE | 2017-06-04 15:04 | P.PN ---
Progress Note - Text Interval history: The patient is found in the hallway he follows me to an interview room. He expressed a panic attack last evening that was stressful. EKG was performed the internal medicine group was contacted. He reports he is no longer experiencing that acute anxiety. We discussed his current hallucinations. They are noncommanding but can be derogatory. We discussed techniques of distracting himself from those experiences and focusing on objective thinking. He feels that the voices slowly improve. He is endorsing no side effects from the Seroquel. He continues to sleep well. Mental status exam: The patient is an overweight male he has adequate hygiene grooming he is dressed in his own clothing. Speech is fluent nonpressured. He denies having any suicidal or homicidal ideation. He endorses auditory hallucinations that are noncommanding. He is oriented to person place and date. Thought process is linear there is no evidence of tangential thinking loose associations or flight of ideas. He demonstrates no verbal or physical aggressiveness. Is no evidence of abnormal involuntary movements. Plan: The patient will continue on his current medication his vital signs are reviewed they're within normal limits. He is slowly improving. We discussed managing his symptoms as an outpatient and he demonstrates future oriented thinking. He plans to follow up with [facility].
[2017-06-04 17:29] LABS: Glucose,Whole Blood 126 mg/dL (75-99)
--- NOTE | 2017-06-04 17:39 | P.PN ---
Subjective This 46-year-old gentleman was admitted for psychiatric evaluation was having tachycardia. Patient was given a small dose of beta blockers. No chest pain no palpitation. Basic labs and negative. Patient reports some anxiety during the episodes of tachycardia. Objective - Vital Signs Vital signs: Vital Signs Temp 97.8 F 06/03/17 07:02 Pulse 75 06/04/17 08:09 Resp 16 06/04/17 08:09 BP 108/64 06/04/17 08:09 Pulse Ox 98 06/03/17 21:48 Intake & Output 06/03/17 06/04/17 06/04/17 18:59 06:59 18:59 Weight 107.1 kg - Exam On exam, alert and oriented x3. HEENT: Conjunctivae normal. eyes normal. NECK: No JVD. No thyroid enlargement. No LNs CARDIOVASCULAR: S1, S2 muffled. No murmur RESPIRATION: Breath sounds diminished in the bases. No rhonchi or crackles. No bronchial breathing. ABDOMEN: Soft, nontender . No guarding. no masses palpable. No ascites, No hepatosplenomegaly.Bowel sounds heard. LEGS: No edema. no swelling NERVOUS SYSTEM: Cranial N 2-12 grossly normal. Moves all 4 limbs. No focal deficits. No sensory deficit. No signs of cerebellar dysfucntion. Skin: no ulcer no rash Joints: No active swelling. No inflammation. Lymphatic system. No LN neck axilla or groin. - Labs CBC & Chem 7: 06/03/17 21:42 06/03/17 21:42 Labs: Abnormal Lab Results - Last 24 Hours (Table) 06/03/17 06/03/17 06/03/17 Range/Units 20:26 21:42 21:42 MCV 79.2 L (80.0-100.0) fL Plt Count 131 L (150-450) k/uL Glucose 215 H (74-99) mg/dL POC Glucose (mg/dL) 155 H (75-99) mg/dL 06/04/17 06/04/17 06/04/17 Range/Units 06:51 12:23 17:26 MCV (80.0-100.0) fL Plt Count (150-450) k/uL Glucose (74-99) mg/dL POC Glucose (mg/dL) 120 H 122 H 126 H (75-99) mg/dL Assessment and Plan Plan: Assessment #1 diabetes mellitus #2 hyperlipidemia #3 hypertension #4 bruxism 5 psychiatric evaluation 6 tachycardia possibly related to anxiety. Plan In this 46-year-old gentleman was admitted for psych evaluation I would recommend to continue current medications. Monitor blood sugars closely. Symptomatic treatment. Resume home medications. Recommend close follow-up with the Dr. Meza after discharge. Continue with the beta blockers. I would recommend cardiology eval as an outpatient. Thank you.
[2017-06-04 20:09] LABS: Glucose,Whole Blood 122 mg/dL (75-99)
[2017-06-04] MEDS: QUEtiapine 200 MG TAB PO SCH (20:12)
[2017-06-05 06:43] VITALS: BP 117/66; PULSE 68; TEMP 97.7
[2017-06-05 06:50] LABS: Glucose,Whole Blood 116 mg/dL (75-99)
[2017-06-05] MEDS: INSULIN LISPRO (humaLOG) 300 UNIT/3 ML VIAL SQ SCH ×2 (07:43→13:25)
[2017-06-05] MEDS: metFORMIN 500 MG TAB PO SCH (07:45)
[2017-06-05] MEDS: METOPROLOL TARTRATE 12.5 MG TAB PO SCH (07:45)
[2017-06-05] MEDS: ATORVASTATIN 40 MG TAB PO SCH (07:45)
[2017-06-05] MEDS: SERTRALINE 100 MG TAB PO SCH (07:45)
--- NOTE | 2017-06-05 10:10 | P.DS ---
Providers Date of admission: 05/28/17 00:17 Expected date of discharge: 06/05/17 Attending physician: Kike Alcantara Consults: 05/28/17 09:40 Consult Physician Routine Consulting Provider: Js Sparks Consult Reason/Comments: history and physical Do you want consulting provider notified?: Yes Primary care physician: Jessica Meza - Discharge Diagnosis(es) (1) Unspecified psychosis Current Visit: No Status: Acute Priority: High Hospital Course: Brief summary of admission note: This patient is a 46-year-old male who is readmitted to the mental health unit for acute symptoms of psychosis. He was just recently discharged on May 24. He reports presented to the emergency room stating that the devil is taking over his body and he reported to the sitter he wanted to "have sex with 7-year-old girls". The patient's was stating he was Satan and that he was going to and that God hated him. He had complied with the Geodon up until 2 days prior to this admission. He felt the Geodon was causing intolerable headaches and he describes symptoms of akathisia. For full details please refer to the psychiatric evaluation dated 05/28/2017. Summary of hospital course: The patient was admitted to the mental health unit again he signed in voluntarily. We reviewed his presenting symptoms and treatment options. He had already discontinued the Geodon. We decided to utilize Seroquel and titrated the dose over the course of his hospital stay. He reported his sleep improved he reported no adverse effects from the Seroquel. He has describes some reduction of the auditory hallucinations. He states they are still present but they do not causes much fear or concern. He is able to state today that he is not possessed by a demon and he continues to develop strategies to distract himself from hallucinations. He indicates that the hallucinations are not directing self-harm at this time. He is experiencing no visual hallucinations. He describes no suicidal ideation intent or plan no homicidal ideation intent or plan. He demonstrates no symptoms of hypomania or deedee. Insight and judgment are grossly intact. He is oriented to person place and date. He demonstrates no verbal or physical aggressiveness. He demonstrates no abnormal involuntary movements. He continues to report future oriented thinking he will be staying with his brother until he is able to return home. During the course of his stay he did experience what appears to be a panic attack his heart rate was quite elevated EKG was within normal limits he was seen by internal medicine. He was started on Lopressor to control heart rate. Mental status exam: The patient is an overweight male he stressors own clothing hygiene grooming are adequate. Speech is fluent spontaneous nonpressured. He reports his mood is improved he is reporting no suicidal or homicidal ideation intent or plan. He indicates that he will have some intermittent symptoms of psychosis in the form of hallucinations are not commanding. He feels that the hallucinations have improved in terms of intensity and frequency. He has reported a resolution of delusional thinking stating he is aware he is not possessed by a demon. Impressions 1. Psychosis unspecified rule out schizophrenia versus schizoaffective disorder Plan: The patient will be discharged from mental health unit he plans on staying with his brother temporarily. He will continue on Zoloft 100 mg daily Seroquel 500 mg in the evening. Social work will arrange his outpatient follow- up he is encouraged to comply with those appointments. He reports no use of alcohol or illicit drugs and uses encouraged to continue abstaining from those substances. There is no imminent safety risk is appropriate for transition back to outpatient care. He is aware that he may return to the hospital with any acute safety concerns. He will follow up with his primary care physician as needed. Patient Condition at Discharge: Good Plan - Discharge Summary New Discharge Prescriptions: No Action Atorvastatin [Lipitor] 40 mg PO DAILY glipiZIDE [Glucotrol] 2.5 mg PO AC-BID #60 tab metFORMIN HCL [Glucophage] 1,000 mg PO AC-BID #60 tab Ziprasidone [Geodon] 80 mg PO BID #60 cap Sertraline [Zoloft] 100 mg PO DAILY #30 Discharge Medication List Atorvastatin [Lipitor] 40 mg PO DAILY 05/15/17 [History] Sertraline [Zoloft] 100 mg PO DAILY #30 05/24/17 [Rx] Ziprasidone [Geodon] 80 mg PO BID #60 cap 05/24/17 [Rx] glipiZIDE [Glucotrol] 2.5 mg PO AC-BID #60 tab 05/24/17 [Rx] metFORMIN HCL [Glucophage] 1,000 mg PO AC-BID #60 tab 05/24/17 [Rx] Follow up Appointment(s)/Referral(s): [facility] [Outside] - 06/05/17 11:00 am (Jessica Galvan MD [Primary Care Provider] - 1-2 days
[2017-06-05 12:42] LABS: Glucose,Whole Blood 111 mg/dL (75-99)
== END 2017-06-05 14:53 | disposition home or self-care (01) | DRG 885 ==
LOC: EC 18:42 → 3MHU 05-28 00:17
PROVIDERS: ADMIT Psychiatry & Neurology Psychiatry; ATTEND Psychiatry & Neurology Psychiatry
DX: F29 Unspecified psychosis not due to a substance or known physiological condition (principal); E11.9 Type 2 diabetes mellitus without complications; R45.851 Suicidal ideations; I10 Essential (primary) hypertension; E66.3 Overweight; E78.5 Hyperlipidemia, unspecified; F25.9 Schizoaffective disorder, unspecified; Z81.8 Family history of other mental and behavioral disorders; Z87.891 Personal history of nicotine dependence
CPT/HCPCS: 36415; 80053; 80306; 81003; 82075; 83036; 83520; 84443; 84484; 85025; 85027; 93005

== ENCOUNTER 2018-12-02 23:52 | Emergency (ER) | payer MEDICARE, OTHER ==
[2018-12-03 00:01] VITALS: TEMP 97.7
[2018-12-03] MEDS ORDERED: SODIUM CHLORIDE 0.9% 1,000 ML IV STA (00:10)
--- NOTE | 2018-12-03 00:17 | ED ---
Arrhythmia/Palpitations HPI - General Chief Complaint: Arrhythmia/Palpitations Stated Complaint: Palpitations, Arm Pain Time Seen by Provider: 12/03/18 00:05 Source: patient Mode of arrival: wheelchair Limitations: no limitations - History of Present Illness Initial Comments: 48 year-old male patient presents to the emergency department today for evaluation of racing heart and palpitations. Patient states that symptoms started around 9:30 this evening. States that he held feel his heart rate speed up and that overall seemed to go down low.patient states just prior to arrival he had a near-syncopal episode where his vision went dark and he felt like he was going to pass out. Patient states he has had similar symptoms with a heart rate in the past however they haven't really been able to find sinus tachycardia. Patient denies any new medications however states that he did accidentally take his afternoon medications in the morning and then took them again this evening.he denies any chest pain or shortness of breath with this. Denies any nausea or vomiting. States he is having electric shock type sensation to the left upper arm but denies any numbness or tingling to the extremities. Patient denies any recent rash, fever, chills, abdominal pain, diarrhea, constipation, back pain, hematuria, dysuria, urinary urgency, urinary frequency, headache, visual changes, or any other complaints. - Related Data Home Medications Medication Instructions Recorded Confirmed Haloperidol [Haldol] 2 mg PO ONCE 12/03/18 12/03/18 Previous Rx's Medication Instructions Recorded metFORMIN HCL [Glucophage] 1,000 mg PO AC-BID #60 tab 05/24/17 QUEtiapine [SEROquel] 500 mg PO HS #75 tab 06/05/17 Sertraline [Zoloft] 100 mg PO DAILY #30 06/05/17 Allergies Allergy/AdvReac Type Severity Reaction Status Date / Time No Known Allergies Allergy Verified 05/27/17 18:58 Review of Systems ROS Statement: Those systems with pertinent positive or pertinent negative responses have been documented in the HPI. ROS Other: All systems not noted in ROS Statement are negative. Past Medical History Past Medical History: Diabetes Mellitus, Hyperlipidemia, Hypertension History of Any Multi-Drug Resistant Organisms: None Reported Additional Past Surgical History / Comment(s): right shoulder Past Psychological History: Bipolar, Depression, Schizoaffective Disorder Smoking Status: Former smoker Past Alcohol Use History: None Reported General Exam Limitations: no limitations General appearance: alert, in no apparent distress, other (this is a well- developed, well-nourished adult male patient in no acute distress. Vital signs upon presentation are temperature 97.7F, pulse 94, respirations 20, blood pressure 172/90, pulse ox 96% on room air.) Eye exam: Present: normal appearance, PERRL, EOMI. Absent: scleral icterus, conjunctival injection, periorbital swelling ENT exam: Present: normal exam, normal oropharynx, mucous membranes moist Respiratory exam: Present: normal lung sounds bilaterally. Absent: respiratory distress, wheezes, rales, rhonchi, stridor Cardiovascular Exam: Present: regular rate, normal rhythm, normal heart sounds. Absent: systolic murmur, diastolic murmur, rubs, gallop, clicks GI/Abdominal exam: Present: soft, normal bowel sounds. Absent: distended, tenderness, guarding, rebound, rigid Neurological exam: Present: alert, oriented X3, CN II-XII intact Psychiatric exam: Present: normal affect, normal mood Skin exam: Present: warm, dry, intact, normal color. Absent: rash Course Vital Signs 12/02/18 12/03/18 12/03/18 23:55 00:20 02:15 Temperature 97.7 F Pulse Rate 94 80 Pulse Rate [ 94 General Intern ] Respiratory 20 16 Rate Blood Pressure 172/90 118/79 O2 Sat by Pulse 96 97 Oximetry EKG Findings - EKG Comments: EKG Findings:: EKG obtained at 0009 shows normal sinus rhythm with a ventricular rate of 94, [place] interval 162, QRS duration 84, QT 358, QTC 447. No evidence of ST elevation or depression. No ectopy. Medical Decision Making - Medical Decision Making 48-year-old male patient presented to the emergency department today for evaluation of racing heart. Patient states that about 3 hours prior to arrival. Physical examination was unremarkable. Heart sounds are normal. EKG showed normal sinus rhythm area labs reviewed and were unremarkable other than elevated TSH at 6.230, T4 was normal. It is felt this is unrelated to the racing heart sensation. He did use his medication inappropriately today which may have contributed. He is instructed to follow-up with his primary care physician to discuss both the hypothyroid and possible Holter monitoring. He is instructed to return to the emergency department immediately for any new, worsening, or concerning symptoms. He verbalizes understanding and agrees with this plan. - Lab Data Result diagrams: 12/03/18 00:17 12/03/18 00:17 Lab Results 12/03/18 12/03/18 12/03/18 Range/Units 00:17 00:17 00:17 WBC 5.8 (3.8-10.6) k/uL RBC 5.55 (4.30-5.90) m/uL Hgb 14.7 (13.0-17.5) gm/dL Hct 43.3 (39.0-53.0) % MCV 78.1 L (80.0-100.0) fL MCH 26.6 (25.0-35.0) pg MCHC 34.0 (31.0-37.0) g/dL RDW 13.8 (11.5-15.5) % Plt Count 145 L (150-450) k/uL Neutrophils % 61 % Lymphocytes % 29 % Monocytes % 7 % Eosinophils % 1 % Basophils % 0 % Neutrophils # 3.6 (1.3-7.7) k/uL Lymphocytes # 1.7 (1.0-4.8) k/uL Monocytes # 0.4 (0-1.0) k/uL Eosinophils # 0.1 (0-0.7) k/uL Basophils # 0.0 (0-0.2) k/uL PT (9.0-12.0) sec INR (<1.2) APTT (22.0-30.0) sec Sodium 138 (137-145) mmol/L Potassium 4.0 (3.5-5.1) mmol/L Chloride 104 (98-107) mmol/L Carbon Dioxide 22 (22-30) mmol/L Anion Gap 12 mmol/L BUN 10 (9-20) mg/dL Creatinine 0.70 (0.66-1.25) mg/dL Est GFR (CKD-EPI)AfAm >90 (>60 ml/min/1.73 sqM) Est GFR (CKD-EPI)NonAf >90 (>60 ml/min/1.73 sqM) Glucose 285 H (74-99) mg/dL Calcium 9.7 (8.4-10.2) mg/dL Magnesium 1.6 (1.6-2.3) mg/dL Total Bilirubin 0.5 (0.2-1.3) mg/dL AST 26 (17-59) U/L ALT 34 (21-72) U/L Alkaline Phosphatase 66 (38-126) U/L Total Creatine Kinase 66 (55-170) U/L CK-MB (CK-2) 0.3 (0.0-2.4) ng/mL CK-MB (CK-2) Rel Index 0.5 Troponin I <0.012 (0.000-0.034) ng/mL Total Protein 7.3 (6.3-8.2) g/dL Albumin 4.4 (3.5-5.0) g/dL TSH 6.230 H (0.465-4.680) mIU/L Free T4 1.12 (0.78-2.19) ng/dL Urine Color Urine Appearance (Clear) Urine pH (5.0-8.0) Ur Specific [place] (1.001-1.035) Urine Protein (Negative) Urine Glucose (UA) (Negative) Urine Ketones (Negative) Urine Blood (Negative) Urine Nitrite (Negative) Urine Bilirubin (Negative) Urine Urobilinogen (<2.0) mg/dL Ur Leukocyte Esterase (Negative) Urine Opiates Screen (NotDetected) Ur Oxycodone Screen (NotDetected) Urine Methadone Screen (NotDetected) Ur Propoxyphene Screen (NotDetected) Ur Barbiturates Screen (NotDetected) U Tricyclic Antidepress (NotDetected) Ur Phencyclidine Scrn (NotDetected) Ur Amphetamines Screen (NotDetected) U Methamphetamines Scrn (NotDetected) U Benzodiazepines Scrn (NotDetected) Urine Cocaine Screen (NotDetected) U Marijuana (THC) Screen (NotDetected) 12/03/18 12/03/18 Range/Units 00:17 01:18 WBC (3.8-10.6) k/uL RBC (4.30-5.90) m/uL Hgb (13.0-17.5) gm/dL Hct (39.0-53.0) % MCV (80.0-100.0) fL MCH (25.0-35.0) pg MCHC (31.0-37.0) g/dL RDW (11.5-15.5) % Plt Count (150-450) k/uL Neutrophils % % Lymphocytes % % Monocytes % % Eosinophils % % Basophils % % Neutrophils # (1.3-7.7) k/uL Lymphocytes # (1.0-4.8) k/uL Monocytes # (0-1.0) k/uL Eosinophils # (0-0.7) k/uL Basophils # (0-0.2) k/uL PT 9.7 (9.0-12.0) sec INR 0.9 (<1.2) APTT 22.6 (22.0-30.0) sec Sodium (137-145) mmol/L Potassium (3.5-5.1) mmol/L Chloride (98-107) mmol/L Carbon Dioxide (22-30) mmol/L Anion Gap mmol/L BUN (9-20) mg/dL Creatinine (0.66-1.25) mg/dL Est GFR (CKD-EPI)AfAm (>60 ml/min/1.73 sqM) Est GFR (CKD-EPI)NonAf (>60 ml/min/1.73 sqM) Glucose (74-99) mg/dL Calcium (8.4-10.2) mg/dL Magnesium (1.6-2.3) mg/dL Total Bilirubin (0.2-1.3) mg/dL AST (17-59) U/L ALT (21-72) U/L Alkaline Phosphatase (38-126) U/L Total Creatine Kinase (55-170) U/L CK-MB (CK-2) (0.0-2.4) ng/mL CK-MB (CK-2) Rel Index Troponin I (0.000-0.034) ng/mL Total Protein (6.3-8.2) g/dL Albumin (3.5-5.0) g/dL TSH (0.465-4.680) mIU/L Free T4 (0.78-2.19) ng/dL Urine Color Light Yellow Urine Appearance Clear (Clear) Urine pH 5.0 (5.0-8.0) Ur Specific [place] 1.012 (1.001-1.035) Urine Protein Negative (Negative) Urine Glucose (UA) 4+ H (Negative) Urine Ketones Negative (Negative) Urine Blood Negative (Negative) Urine Nitrite Negative (Negative) Urine Bilirubin Negative (Negative) Urine Urobilinogen <2.0 (<2.0) mg/dL Ur Leukocyte Esterase Negative (Negative) Urine Opiates Screen Not Detected (NotDetected) Ur Oxycodone Screen Not Detected (NotDetected) Urine Methadone Screen Not Detected (NotDetected) Ur Propoxyphene Screen Not Detected (NotDetected) Ur Barbiturates Screen Not Detected (NotDetected) U Tricyclic Antidepress Detected H (NotDetected) Ur Phencyclidine Scrn Not Detected (NotDetected) Ur Amphetamines Screen Not Detected (NotDetected) U Methamphetamines Scrn Not Detected (NotDetected) U Benzodiazepines Scrn Not Detected (NotDetected) Urine Cocaine Screen Not Detected (NotDetected) U Marijuana (THC) Screen Not Detected (NotDetected) - Radiology Data Radiology results: report reviewed, image reviewed Two-view x-ray of the chest is obtained. Report was reviewed in its entirety. Impression by Dr. Weston shows no acute disease identified. Disposition Clinical Impression: Racing heart beat, Hypothyroid Disposition: HOME SELF-CARE Condition: Good Instructions (If sedation given, give patient instructions): Heart Palpitations (ED), Hypothyroidism (ED) Additional Instructions: Increase fluids. Follow up with your primary care physician for recheck in 1-2 days. Discuss low thyroid. Discuss possible referral for holter monitoring. Return to the emergency department for any new, worsening, or concerning symptoms. Is patient prescribed a controlled substance at d/c from ED?: No Referrals: Jessica Meza MD [Primary Care Provider] - 1-2 days Time of Disposition: 03:12
[2018-12-03 00:35] LABS: Basophils % (A) 0 %; Eosinophils # (A) 0.1 k/uL (0-0.7); Eosinophils % (A) 1 %; HCT 43.3 % (39.0-53.0); HGB 14.7 gm/dL (13.0-17.5); Lymphocytes # (A) 1.7 k/uL (1.0-4.8); Lymphocytes % (A) 29 %; MCH 26.6 pg (25.0-35.0); MCV 78.1 fL (80.0-100.0); Mean Platelet Volume 6.8; Monocytes # (A) 0.4 k/uL (0-1.0); Monocytes % (A) 7 %; Neutrophils # (A) 3.6 k/uL (1.3-7.7); Neutrophils % (A) 61 %; Platelet Count 145 k/uL (150-450); RBC 5.55 m/uL (4.30-5.90); RDW 13.8 % (11.5-15.5); WBC 5.8 k/uL (3.8-10.6)
[2018-12-03 00:44] LABS: INR 0.9 (<1.2); Partial Thromboplastin Time 22.6 sec (22.0-30.0); Prothrombin Time 9.7 sec (9.0-12.0)
[2018-12-03 00:47] LABS: ALT 34 U/L (21-72); AST 26 U/L (17-59); Albumin 4.4 g/dL (3.5-5.0); Alkaline Phosphatase 66 U/L (38-126); Anion Gap 12 mmol/L; Blood Urea Nitrogen 10 mg/dL (9-20); Calcium 9.7 mg/dL (8.4-10.2); Carbon Dioxide 22 mmol/L (22-30); Chloride 104 mmol/L (98-107); Glucose 285 mg/dL (74-99); Magnesium 1.6 mg/dL (1.6-2.3); Sodium 138 mmol/L (137-145); Total Bilirubin 0.5 mg/dL (0.2-1.3); Total Protein 7.3 g/dL (6.3-8.2)
--- NOTE | 2018-12-03 00:59 | XR ---
EXAM: XR Chest, 2 Views CLINICAL HISTORY: ITS.REASON XR Reason: dysrhythmia TECHNIQUE: Frontal and lateral views of the chest. COMPARISON: None FINDINGS: Hardware: None. Lungs/pleura: Normal. No focal consolidation. No pleural effusion or pneumothorax. Heart/mediastinum: Normal. No cardiomegaly. Soft tissues: Unremarkable. Bones: No acute fracture. Upper abdomen: Normal. IMPRESSION: No acute disease identified.
[2018-12-03 01:27] LABS: Creatine Kinase 66 U/L (55-170)
[2018-12-03 01:40] LABS: Creatine Kinase MB 0.3 ng/mL (0.0-2.4); Troponin I <0.012 ng/mL (0.000-0.034)
[2018-12-03 01:43] LABS: Appearance,Urine Clear (Clear); Bilirubin,Urine Negative (Negative); Blood,Urine Negative (Negative); Color,Urine Light Yellow; Glucose,Urine (UA) 4+ (Negative); Ketones,Urine Negative (Negative); Leukocyte Esterase,Urine Negative (Negative); Nitrite,Urine Negative (Negative); Protein,Urine Negative (Negative); Specific Gravity,Urine 1.012 (1.001-1.035); Urobilinogen,Urine <2.0 mg/dL (<2.0)
[2018-12-03 01:54] LABS: Amphetamine Screen,Urine Not Detected (NotDetected); Barbiturate Screen,Urine Not Detected (NotDetected); Benzodiazepines Screen,Urine Not Detected (NotDetected); Cocaine Screen,Urine Not Detected (NotDetected); Methadone Screen, Urine Not Detected (NotDetected); Opiate Screen,Urine Not Detected (NotDetected); Oxycodone Screen, Urine Not Detected (NotDetected); Phencyclidine Screen,Urine Not Detected (NotDetected); Tricyclic Antidepressant,Urine Detected (NotDetected); Urn Cannabinoid Scrn Not Detected (NotDetected)
[2018-12-03 02:16] VITALS: RESP 16
[2018-12-03 03:09] LABS: T4, Free (Free Thyroxine) 1.12 ng/dL (0.78-2.19)
[2018-12-03 03:27] VITALS: BP 123/63; PULSE 73
== END 2018-12-03 03:26 | disposition home or self-care (01) ==
LOC: EC 23:52
DX: R00.0 Tachycardia, unspecified (principal); E03.9 Hypothyroidism, unspecified; R00.2 Palpitations; M79.603 Pain in arm, unspecified; F25.1 Schizoaffective disorder, depressive type; F25.0 Schizoaffective disorder, bipolar type; Z87.891 Personal history of nicotine dependence; Z79.899 Other long term (current) drug therapy
CPT/HCPCS: 36415; 71046; 80053; 80306; 81003; 82550; 82553; 83735; 84439; 84443; 84484; 85025; 85610; 85730; 93005; 96360; 96361; 99285

== ENCOUNTER 2023-04-24 06:55 | Inpatient (IN) | payer MEDICARE, MEDICAID ==
[2023-04-24] MEDS ORDERED: ACETAMINOPHEN TAB 325 MG TAB PO PRN (07:03)
[2023-04-24] MEDS ORDERED: HALOPERIDOL LACTATE 5 MG/ML 1 ML VIAL IM PRN (07:03)
[2023-04-24] MEDS ORDERED: MAGNESIUM HYDROXIDE 2,400 MG/30 ML CUP PO PRN (07:03)
[2023-04-24] MEDS ORDERED: haloperidoL 5 MG TAB PO PRN (07:03)
[2023-04-24] MEDS ORDERED: MAG HYDROX/AL HYDROX/SIMETH 30 ML CUP PO PRN (07:03)
[2023-04-24] MEDS ORDERED: IBUPROFEN 600 MG TAB PO PRN (07:03)
[2023-04-24] MEDS ORDERED: traZODone HCL 50 MG TAB PO PRN (07:03)
[2023-04-24] MEDS ORDERED: LORazepam 2 MG/ML INJ IM PRN (07:03)
[2023-04-24] MEDS ORDERED: LORazepam 1 MG TAB PO PRN (07:03)
[2023-04-24 08:34] LABS: Glucose,Whole Blood 330 mg/dL (70-110)
[2023-04-24] MEDS ORDERED: DEXTROSE 50% SYRINGE 50 ML IVP PRN ×2 (08:37)
[2023-04-24] MEDS ORDERED: INSULIN ASPART (NovoLOG) 100 UNIT/ML VIAL SQ ONE (10:10)
[2023-04-24] MEDS: NICOTINE 21MG/24HR PATCH TRANSDERM SCH (10:10)
[2023-04-24 10:20] LABS: Glucose,Whole Blood 503 mg/dL (70-110)
[2023-04-24 10:20] LABS: Glucose,Whole Blood 502 mg/dL (70-110)
[2023-04-24] MEDS ORDERED: INSULIN DETEMIR (LEVEMIR) 100 UNIT/ML SYR SQ ONE (10:45)
[2023-04-24] MEDS: INSULIN ASPART (NovoLOG) 100 UNIT/ML VIAL SQ SCH ×3 (13:09→21:02)
[2023-04-24 13:10] LABS: Glucose,Whole Blood 341 mg/dL (70-110)
--- NOTE | 2023-04-24 14:34 | P.HP ---
Psychiatric H&P - . H&P Date: 04/24/23 History & Physical: Allergies Allergy/AdvReac Type Severity Reaction Status Date / Time No Known Allergies Allergy Verified 04/24/23 10:41 Vital Signs Temp 96.8 F L 04/24/23 07:44 Pulse 104 H 04/24/23 07:44 Resp 18 04/24/23 07:44 BP 130/80 04/24/23 07:44 Pulse Ox 98 04/24/23 07:44 FiO2 Intake & Output 04/23/23 04/24/23 04/24/23 18:59 06:59 18:59 Weight 77.1 kg Laboratory Last Values POC Glucose (mg/dL) 341 mg/dL (70-110) H 04/24/23 13:07 POC Glu Electromyographic Technician ID Mayra Allen 04/24/23 13:07 04/24/23 14:34 IDENTIFYING DATA: Patient is a , unemployed 52-year-old male with a significant history of psychosis who presented to our hospital on 04/24/2023 under petition and certification for psychiatric evaluation and treatment. HPI: Patient presented to the hospital on 04/24/2023 brought in under petition and certification for psychosis. As per petition filled out bya clinical social worker at the [facility], "Per Omi, 'I'm going crazy. The voice won't leave me alone. He tells me all the time to kill or harm myself.' He has not filled his medications for over the last 3 months. He was certified and transferred onto our psychiatric unit. Upon evaluation by this provider, the patient states that he is here because he has been off his medications. He does admit to hearing voices that are commanding him to hurt himself or kill himself. When asked if he would like to be back on medications however, the patient states he does not want to. He explicitly states multiple times for clarification, "I do not want to be on any of my meds." He reports no current suicidal or homicidal ideation. He is unable to provide clear history of events leading up to this hospitalization. He is guarded and suspicious of this provider and terminates the interview early. PAST PSYCHIATRIC HISTORY: Patient has had previous diagnoses of psychosis. He has been off any sort of medications including his psychotropic medications for the past 3 years. He was last hospitalized on our psychiatric unit in May of 2017. He does not mention other psychiatric admissions. Patient denies any psychiatric outpatient follow-up.Patient denies any history of suicide attempts in the past. From his previous admission in 2017: "This is the patient's third psychiatric admission his first was in August 2016 and his most recent was from May 16 until 05/24/2017. Patient was discharged on Geodon 80 mg twice a day and Zoloft 100 mg a day. Patient has been tried on Latuda and Abilify in the past. Patient stated to me that he had been seen by [facility] in 2009 and placed on Abilify at that time because he was having paranoid ideation he states that he continued the medication for 1 year and discontinued it and received no treatment until his admission here in 2015. He states that he has been on Wellbutrin and Prozac in the past and was placed on Wellbutrin in 2006 by his primary care physician." PMH: Diabetes Mellitus ALLERGIES: NKDA CHEMICAL DEPENDENCY HISTORY: No reported substance use history. FAMILY PSYCHIATRIC/SUBSTANCE USE HISTORY: From his previous admission in 2017: "Patient states that he has a maternal grandmother who was diagnosed with schizophrenia and denies any completed suicides in the family and reports no substance or alcohol abuse history." SOCIAL HISTORY: Patient has been since 2005. He reporedly has 2 children with his current and 3 from a previous marriage. Reportedly receives disability due to his mental illness. MENTAL STATUS EXAM: General Appearance: Patient appears to be stated age is alert, directable, but refuses to cooperate. Patient appears to have disheveled hygiene and grooming. Behavior: Patient is seated without any agitated behavior. Patient terminates the interview early and walks out the room. Speech: Patient's speech is non spontaneous, short, radha. Mood/Affect: Patient reports their mood is "I don't want medications," affect is blunted. Suicidality/Homicidality: Patient reports suicidal ideation. No homicidal ideation. Perceptions: Patient denies any visual hallucinations however reports auditory hallucinations. Though content/process: [place]. Memory and concentration: AOX3, grossly intact for the purposes of this session. Can spell "WORLD" backwards Judgment and insight: poor STRENGTHS/WEAKNESSES: Strength is that the patient has support. Weakness is his poor insight and nonadherence with treatment. INTELLECT: average IMPRESSIONS: Schizophrenia PLAN: -Patient is admitted under involuntary status to [facility] for stabilization of psychiatric symptoms and safety. A second certification was completed and along with petition will be filed for court. -Medications : Will start patient on Risperdal 1 mg twice a day for psychosis. -Ativan and Haldol PRN for agitation/aggression -Patient was informed of the risks, benefits and side effects of the medication however states he does not need medications. -Internal Medicine consult to perform medical evaluation and physical. -SW on board for discharge planning. Encourage patient to participate in groups to work on coping skills. 04/24/23 14:34
[2023-04-24 17:45] LABS: Glucose,Whole Blood 345 mg/dL (70-110)
[2023-04-24 19:55] LABS: Glucose,Whole Blood 370 mg/dL (70-110)
[2023-04-24] MEDS: risperiDONE 1 MG TAB PO SCH (21:02)
--- NOTE | 2023-04-25 01:25 | P.CONS ---
History of Present Illness - Reason for Consult Consult date: 04/24/23 - History of Present Illness The patient is a 52-year-old male with a PMH of type II DM and psychosis with presented to the emergency room with complaints of depression and suicidal ideation. The patient was admitted to the mental health unit where he was seen and evaluated. The patient reports that he has been dealing with possible bedbugs over the last few months since he moved into a new house. Reports that the place is overcrowded. He reports an itchy rash particularly on his arms and legs. He denies any additional complaints. Denies experiencing chest discomfort, shortness of breath, fever, chills, cough or nausea, vomiting, abdominal pain. Laboratory evaluation was remarkable for hyperglycemia. Review of systems: Pertinent positives and negatives as discussed in HPI, a complete review of systems was performed and all other systems are negative. Physical examination: General: non toxic, no distress, appears at stated age, normal weight Derm: petechial erythematous rash with excoriations and track honeycutt overlying maria alejandra upper and lower extremities, warm, dry Head: atraumatic, normocephalic, symmetric Eyes: EOMI, no lid lag, anicteric sclera ENT: Nose and ears atraumatic, no thrush, no pharyngeal erythema Neck: trachea midline, supple Mouth: no lip lesion, mucus membranes moist Cardiovascular: S1S2 reg, no murmur, no edema Lungs: CTA bilateral, no rhonchi, no rales , no accessory muscle use Abdominal: soft, nontender to palpation, no guarding Ext: no gross muscle atrophy, no contractures, Neuro: No gross focal neuro deficits noted Psych: Alert, oriented, appropriate affect Assessment: Petechial rash, concerning for scabies Type 2 DM Depression and suicidal ideation Imaging: None performed Plan: Permethrin treatment topical Insulin sliding scale and blood glucose monitoring C/w levemir 10 u qd Deferr management of depression and suicidal ideation to the primary psychiatry service Thank you for allowing us to participate in the care of this patient. We will follow peripherally. Do not hesitate to contact us with questions. Someone can be reached from the [facility] hospitalist group at all hours of the day at [phone]. Past Medical History Past Medical History: Diabetes Mellitus, Hyperlipidemia, Hypertension History of Any Multi-Drug Resistant Organisms: None Reported Additional Past Surgical History / Comment(s): right shoulder Past Anesthesia/Blood Transfusion Reactions: No Reported Reaction Past Psychological History: No Psychological Hx Reported, Bipolar, Depression, Schizoaffective Disorder Smoking Status: Never smoker Past Alcohol Use History: None Reported Past Drug Use History: None Reported - Past Family History Father Family Medical History: Hypertension Medications and Allergies Home Medications Medication Instructions Recorded Confirmed Type No Known Home Medications 04/24/23 04/24/23 History Allergies Allergy/AdvReac Type Severity Reaction Status Date / Time No Known Allergies Allergy Verified 04/24/23 10:41 Physical Exam Vitals: Vital Signs Temp Pulse Resp BP Pulse Ox 04/24/23 07:44 96.8 F L 104 H 18 130/80 98 Intake and Output 04/24/23 04/24/23 04/24/23 06:59 14:59 22:59 Other: Weight 77.1 kg Results Labs: Abnormal Lab Results - Last 24 Hours (Table) 04/24/23 04/24/23 04/24/23 Range/Units 08:33 10:14 10:16 POC Glucose (mg/dL) 330 H 503 H 502 H (70-110) mg/dL 04/24/23 04/24/23 04/24/23 Range/Units 13:07 17:44 19:54 POC Glucose (mg/dL) 341 H 345 H 370 H (70-110) mg/dL
[2023-04-25] MEDS ORDERED: PERMETHRIN 5% CREAM 60 GM TUBE TOPICAL ONE (01:45)
[2023-04-25 06:51] LABS: Glucose,Whole Blood 319 mg/dL (70-110)
[2023-04-25] MEDS: INSULIN ASPART (NovoLOG) 100 UNIT/ML VIAL SQ SCH ×5 (08:20→20:24)
[2023-04-25] MEDS: INSULIN DETEMIR (LEVEMIR) 100 UNIT/ML SYR SQ SCH (08:20)
[2023-04-25] MEDS: risperiDONE 1 MG TAB PO SCH ×2 (08:21→20:25)
[2023-04-25] MEDS: NICOTINE 21MG/24HR PATCH TRANSDERM SCH (08:25)
--- NOTE | 2023-04-25 10:31 | P.PN ---
Progress Note - Text Progress Note Date: 04/25/23 Interval History: Patient was seen in his room and was directable and agreeable to speak with telegraphic typewriter installer in his room., The patient is not reporting any suicidal or homicidal ideation, intention, and/or plan. However, the patient continues to endorse auditory hallucinations that he describes as commanding in nature. He reports that they tell him to "do this and do that." He reports that they are not telling him to hurt himself at this time. Furthermore, the patient does report generalized paranoia stating that he does feel concerned for his safety on the unit and is fearful what others might do to him. He is agreeable to further titration of his medications. He has been adherent with his medications however reports constipation as a side effect. Mental Status Exam: General Appearance: Patient appears to be stated age is alert, directable, and cooperative. Behavior: Patient is calmly seated without any agitated behavior. Psychomotor slowing is evident. Speech: Patient's speech is fluent and nonpressured. Non-spontaneous. Monotone. Mood/Affect: Mood is "okay." Affect is blunted. Suicidality/Homicidality: Patient denies having any suicidal or homicidal ideation intent or plan. Perceptions: Patient denies any visual hallucinations however he does endorse auditory hallucinations. Though content/process: The patient endorses generalized paranoia. [place]. Memory and concentration: AOX3, grossly intact for the purposes of this session Judgment and insight: Improving mildly Vital Signs Temp 96.8 F L 04/24/23 07:44 Pulse 104 H 04/24/23 07:44 Resp 18 04/24/23 07:44 BP 130/80 04/24/23 07:44 Pulse Ox 98 04/24/23 07:44 FiO2 Intake & Output 04/24/23 04/25/23 04/25/23 18:59 06:59 18:59 Weight 77.1 kg Laboratory Results POC Glucose (mg/dL) 319 mg/dL (70-110) H 04/25/23 06:48 POC Glu Narrow Fabrics Weaver ID Darcie Peters 04/25/23 06:48 Assessment Schizophrenia Plan: -Patient continues to meet criteria for inpatient psychiatric admission for symptom stabilization and safety. The patient has been petitioned and certified. -Medications: Increase Risperdal to 2 mg by mouth twice a day for psychosis -Patient is in contact isolation precautions due to concerns for scabies. -When necessary Ativan and Haldol for agitation/aggression. -SW on board for discharge planning. Encouraged the patient to participate in milieu.
[2023-04-25 12:30] LABS: Glucose,Whole Blood 437 mg/dL (70-110)
--- NOTE | 2023-04-25 14:29 | CT ---
EXAMINATION TYPE: CT brain wo con DATE OF EXAM: 04/25/2023 COMPARISON: None INDICATION: Fall DLP: 1102.20 mGycm, Automated exposure control for dose reduction was used. CONTRAST: None CT of the brain is performed utilizing 3 mm thick sections through the posterior fossa and 3 mm thick sections through the remaining calvarium. Study is performed within 24 hours of arrival to the hosp ital. No abnormal hyperdensity is present to suggest an acute intracranial hemorrhage. No mass lesion is evident. No acute infarcts are evident. Ventricles and sulci are appropriate for the patient age. Paranasal sinuses and mastoid air cells within the [id number]-ofoh are clear. IMPRESSIONS: 1. No acute intracranial process. Follow-up MRI can be performed as clinically indicated
[2023-04-25 17:39] LABS: Glucose,Whole Blood 307 mg/dL (70-110)
[2023-04-25 20:07] LABS: Glucose,Whole Blood 244 mg/dL (70-110)
[2023-04-26 07:36] LABS: Glucose,Whole Blood 327 mg/dL (70-110)
[2023-04-26] MEDS: risperiDONE 1 MG TAB PO SCH (07:42)
[2023-04-26] MEDS: INSULIN DETEMIR (LEVEMIR) 100 UNIT/ML SYR SQ SCH (07:43)
[2023-04-26] MEDS: INSULIN ASPART (NovoLOG) 100 UNIT/ML VIAL SQ SCH ×7 (07:43→20:49)
[2023-04-26 10:00] LABS: Basophils % (A) 0 %; Eosinophils % (A) 0 %; HCT 44.6 % (39.0-53.0); HGB 15.2 gm/dL (13.0-17.5); Lymphocytes # (A) 0.7 k/uL (1.0-4.8); Lymphocytes % (A) 11 %; MCH 27.6 pg (25.0-35.0); MCHC 34.1 g/dL (31.0-37.0); MCV 80.9 fL (80.0-100.0); Mean Platelet Volume 8.8; Monocytes # (A) 0.2 k/uL (0-1.0); Monocytes % (A) 3 %; Neutrophils # (A) 5.3 k/uL (1.3-7.7); Neutrophils % (A) 85 %; Platelet Count 179 k/uL (150-450); RBC 5.52 m/uL (4.30-5.90); RDW 13.5 % (11.5-15.5); WBC 6.3 k/uL (3.8-10.6)
[2023-04-26 10:09] LABS: ALT 22 U/L (4-49); AST 20 U/L (17-59); African American GFR (CKD) >90 (>60 ml/min/1.73 sqM); Albumin 4.4 g/dL (3.5-5.0); Alkaline Phosphatase 70 U/L (38-126); Anion Gap 13 mmol/L; Blood Urea Nitrogen 14 mg/dL (9-20); Calcium 9.9 mg/dL (8.4-10.2); Carbon Dioxide 24 mmol/L (22-30); Chloride 100 mmol/L (98-107); Glucose 372 mg/dL (74-99); Non-African American GFR(CKD) >90 (>60 ml/min/1.73 sqM); Sodium 137 mmol/L (137-145); Total Protein 7.2 g/dL (6.3-8.2)
--- NOTE | 2023-04-26 11:15 | P.PN ---
Progress Note - Text Progress Note Date: 04/26/23 Interval History: Patient was seen in his room and was directable and agreeable to speak with teletypewriter installer in his room. The patient reports that he feels "like junk." He reports that he feels lightheaded and has difficulty with balance. He states that this is causing him to feel suicidal. Furthermore, he continues to endorse auditory reports that it is constant. He is not reporting any visual hallucinations. He reports no paranoia or other delusions at this time. He was encouraged to take his time getting out of bed and sitting up from a chair. His blood sugar continues to be uncontrolled. Aside from lightheadedness, the patient is not reporting any other medical issues are concerned. Mental Status Exam: General Appearance: Patient appears to be stated age is alert, directable, and cooperative. Behavior: Patient is calmly seated without any agitated behavior. Psychomotor slowing is evident. Speech: Patient's speech is fluent and nonpressured. Non-spontaneous. Monotone. Mood/Affect: Mood is "feeling like junk" Affect is blunted. Suicidality/Homicidality: Patient reports suicidal ideation but denies any homicidal ideation. Perceptions: Patient denies any visual hallucinations however he does endorse auditory hallucinations. Though content/process: [place]. Dysphoric. Memory and concentration: AOX3, grossly intact for the purposes of this session Judgment and insight: Improving mildly Vital Signs Temp 97.4 F L 04/26/23 06:26 Pulse 89 04/26/23 06:26 Resp 16 04/26/23 06:26 BP 99/67 04/26/23 06:26 Pulse Ox 100 04/25/23 13:48 FiO2 Laboratory Results - Last 24 Hours 04/25/23 04/25/23 04/25/23 12:23 17:37 20:05 WBC RBC Hgb Hct MCV MCH MCHC RDW Plt Count MPV Neutrophils % Lymphocytes % Monocytes % Eosinophils % Basophils % Neutrophils # Lymphocytes # Monocytes # Eosinophils # Basophils # Sodium Potassium Chloride Carbon Dioxide Anion Gap BUN Creatinine Est GFR (CKD-EPI)AfAm Est GFR (CKD-EPI)NonAf Glucose POC Glucose (mg/dL) 437 H 307 H 244 H POC Glu Senior Business Process Analyst Joyce Del Rosario Nicole Calcium Total Bilirubin AST ALT Alkaline Phosphatase Total Protein Albumin TSH 04/26/23 04/26/23 04/26/23 07:00 07:00 07:33 WBC 6.3 RBC 5.52 Hgb 15.2 Hct 44.6 MCV 80.9 MCH 27.6 MCHC 34.1 RDW 13.5 Plt Count 179 MPV 8.8 Neutrophils % 85 Lymphocytes % 11 Monocytes % 3 Eosinophils % 0 Basophils % 0 Neutrophils # 5.3 Lymphocytes # 0.7 L Monocytes # 0.2 Eosinophils # 0.0 Basophils # 0.0 Sodium 137 Potassium 4.0 Chloride 100 Carbon Dioxide 24 Anion Gap 13 BUN 14 Creatinine 0.57 L Est GFR (CKD-EPI)AfAm >90 Est GFR (CKD-EPI)NonAf >90 Glucose 372 H POC Glucose (mg/dL) 327 H POC Glu Senior Business Process Analyst ID Mayra Allen Calcium 9.9 Total Bilirubin 1.0 AST 20 ALT 22 Alkaline Phosphatase 70 Total Protein 7.2 Albumin 4.4 TSH 0.971 Assessment Schizophrenia Plan: -Patient continues to meet criteria for inpatient psychiatric admission for symptom stabilization and safety. The patient has been petitioned and certified. -Medications: Due to concern for orthostatic hypotension with fall, we will switch to abilify 10 mg daily with plans to transition to HALL Abilify maintena. -When necessary Ativan and Haldol for agitation/aggression. -SW on board for discharge planning. Encouraged the patient to participate in milieu.
[2023-04-26 12:45] LABS: Glucose,Whole Blood 321 mg/dL (70-110)
[2023-04-26 16:01] LABS: Chol/HDL Ratio 3.44 Ratio; LDL Cholesterol,Calculated 139.1 mg/dL (0.0-131.0)
[2023-04-26 17:35] LABS: Glucose,Whole Blood 269 mg/dL (70-110)
[2023-04-26 20:15] LABS: Glucose,Whole Blood 286 mg/dL (70-110)
[2023-04-27 07:46] LABS: Glucose,Whole Blood 268 mg/dL (70-110)
[2023-04-27] MEDS: INSULIN DETEMIR (LEVEMIR) 100 UNIT/ML SYR SQ SCH (07:59)
[2023-04-27] MEDS: INSULIN ASPART (NovoLOG) 100 UNIT/ML VIAL SQ SCH ×7 (07:59→20:44)
[2023-04-27] MEDS ORDERED: ARIPiprazole 10 MG TAB PO SCH (09:00)
--- NOTE | 2023-04-27 10:18 | P.PN ---
Progress Note - Text Progress Note Date: 04/27/23 Interval History: Patient was seen in his room and was directable and agreeable to speak with commercial insurance underwriter in his room. The patient reports his depression is 10/10 in severity with 10 being severe. He reports suicidal ideation and states he is experiencing auditory hallucinations that are commanding him to kill himself. He reports no intention to do so. He reports elevated anxiety. He states he is not sleeping well. He reports that he still feels light-headed. He has been otherwise ad herent with his medications. He is agreeable to medication adjustments. Mental Status Exam: General Appearance: Patient appears to be stated age is alert, directable, and cooperative. Behavior: Patient is calmly seated without any agitated behavior. Psychomotor slowing is evident. Speech: Patient's speech is fluent and nonpressured. Non-spontaneous. Monotone. Mood/Affect: Mood is "not good" Affect is blunted but also anxious. Suicidality/Homicidality: Patient reports suicidal ideation but denies any homicidal ideation. Perceptions: Patient denies any visual hallucinations however he does endorse auditory hallucinations. Though content/process: [place]. Dysphoric. Memory and concentration: AOX3, grossly intact for the purposes of this session Judgment and insight: fair Vital Signs Temp 97.3 F L 04/27/23 07:00 Pulse 61 04/27/23 07:00 Resp 18 04/27/23 07:00 BP 107/61 04/27/23 07:00 Pulse Ox 97 04/27/23 07:00 FiO2 Laboratory Results WBC 6.3 k/uL (3.8-10.6) 04/26/23 07:00 RBC 5.52 m/uL (4.30-5.90) 04/26/23 07:00 Hgb 15.2 gm/dL (13.0-17.5) 04/26/23 07:00 Hct 44.6 % (39.0-53.0) 04/26/23 07:00 MCV 80.9 fL (80.0-100.0) 04/26/23 07:00 MCH 27.6 pg (25.0-35.0) 04/26/23 07:00 MCHC 34.1 g/dL (31.0-37.0) 04/26/23 07:00 RDW 13.5 % (11.5-15.5) 04/26/23 07:00 Plt Count 179 k/uL (150-450) 04/26/23 07:00 MPV 8.8 04/26/23 07:00 Neutrophils % 85 % 04/26/23 07:00 Lymphocytes % 11 % 04/26/23 07:00 Monocytes % 3 % 04/26/23 07:00 Eosinophils % 0 % 04/26/23 07:00 Basophils % 0 % 04/26/23 07:00 Neutrophils # 5.3 k/uL (1.3-7.7) 04/26/23 07:00 Lymphocytes # 0.7 k/uL (1.0-4.8) L 04/26/23 07:00 Monocytes # 0.2 k/uL (0-1.0) 04/26/23 07:00 Eosinophils # 0.0 k/uL (0-0.7) 04/26/23 07:00 Basophils # 0.0 k/uL (0-0.2) 04/26/23 07:00 Sodium 137 mmol/L (137-145) 04/26/23 07:00 Potassium 4.0 mmol/L (3.5-5.1) 04/26/23 07:00 Chloride 100 mmol/L (98-107) 04/26/23 07:00 Carbon Dioxide 24 mmol/L (22-30) 04/26/23 07:00 Anion Gap 13 mmol/L 04/26/23 07:00 BUN 14 mg/dL (9-20) 04/26/23 07:00 Creatinine 0.57 mg/dL (0.66-1.25) L 04/26/23 07:00 Est GFR (CKD-EPI)AfAm >90 (>60 ml/min/1.73 sqM) 04/26/23 07:00 Est GFR (CKD-EPI)NonAf >90 (>60 ml/min/1.73 sqM) 04/26/23 07:00 Glucose 372 mg/dL (74-99) H 04/26/23 07:00 POC Glucose (mg/dL) 268 mg/dL (70-110) H 04/27/23 07:45 POC Glu Leather Stretcher LATHA Frostdon Chiara 04/27/23 07:[address] Glu mg/dL 255 mg/dL 04/26/23 07:00 Hemoglobin A1c 10.5 % (<=6.0) H 04/26/23 07:00 Calcium 9.9 mg/dL (8.4-10.2) 04/26/23 07:00 Total Bilirubin 1.0 mg/dL (0.2-1.3) 04/26/23 07:00 AST 20 U/L (17-59) 04/26/23 07:00 ALT 22 U/L (4-49) 04/26/23 07:00 Alkaline Phosphatase 70 U/L (38-126) 04/26/23 07:00 Total Protein 7.2 g/dL (6.3-8.2) 04/26/23 07:00 Albumin 4.4 g/dL (3.5-5.0) 04/26/23 07:00 Triglycerides 141.00 mg/dL (0.00-149.00) 04/26/23 07:00 Cholesterol 236.00 mg/dL (0.00-200.00) H 04/26/23 07:00 LDL Cholesterol, Calc 139.1 mg/dL (0.0-131.0) H 04/26/23 07:00 VLDL Cholesterol, Calc 28.20 mg/dL (5.00-40.00) 04/26/23 07:00 HDL Cholesterol 68.70 mg/dL (40.00-60.00) H 04/26/23 07:00 Cholesterol/HDL Ratio 3.44 Ratio 04/26/23 07:00 TSH 0.971 mIU/L (0.465-4.680) 04/26/23 07:00 Assessment Schizophrenia Plan: -Patient continues to meet criteria for inpatient psychiatric admission for symptom stabilization and safety. The patient has been petitioned and certified. -Medications: Increase Abilify to 15 mg daily with plans to transition to HALL Abilify maintena. Start Remeron 15 mg at bedtime for depression -When necessary Ativan and Haldol for agitation/aggression. -SW on board for discharge planning. Encouraged the patient to participate in milieu.
[2023-04-27 12:41] LABS: Glucose,Whole Blood 283 mg/dL (70-110)
[2023-04-27 17:35] LABS: Glucose,Whole Blood 166 mg/dL (70-110)
[2023-04-27 19:55] LABS: Glucose,Whole Blood 181 mg/dL (70-110)
[2023-04-27] MEDS ORDERED: MIRTAZAPINE 15 MG TAB PO SCH (21:00)
[2023-04-28 07:49] LABS: Glucose,Whole Blood 242 mg/dL (70-110)
[2023-04-28] MEDS: INSULIN DETEMIR (LEVEMIR) 100 UNIT/ML SYR SQ SCH (07:56)
[2023-04-28] MEDS: INSULIN ASPART (NovoLOG) 100 UNIT/ML VIAL SQ SCH ×7 (07:57→20:05)
[2023-04-28] MEDS ORDERED: ARIPiprazole 15 MG TAB PO SCH (09:00)
--- NOTE | 2023-04-28 12:03 | P.PN ---
Progress Note - Text Progress Note Date: 04/28/23 Interval History: Patient was seen in attending group and was directable and agreeable to speak with ghost writer in his room. Currently, the patient continues to endorse auditory hallucinations that have been commanding him to hurt himself however he states that he has been able to ignore them more. He reports a significant improvement in regards his target symptoms of psychosis. He denies any suicidal ideation or homicidal ideation today. He reports no visual hallucinations. He denies any paranoia or other delusions at this time. He does report that he has had an improvement in sleep and appetite. He does continue to report elevated anxiety and symptoms of depression and low mood. Mental Status Exam: General Appearance: Patient appears to be slightly older than stated age is alert, directable, and cooperative. Behavior: Patient is calmly seated without any agitated behavior. Psychomotor slowing is evident. Speech: Patient's speech is fluent and nonpressured. Non-spontaneous. Monotone. Slow to respond. Mood/Affect: Mood is "a little better" Affect is blunted. Suicidality/Homicidality: Patient denies any suicidal or homicidal ideation today. Perceptions: Patient denies any visual hallucinations however he does endorse auditory hallucinations. Though content/process: [place]. Less dysphoric. Memory and concentration: AOX3, grossly intact for the purposes of this session Judgment and insight: fair Vital Signs Temp 97.7 F 04/28/23 06:50 Pulse 72 04/28/23 06:50 Resp 17 04/28/23 06:50 BP 127/74 04/28/23 06:50 Pulse Ox 97 04/28/23 06:50 FiO2 Laboratory Results - Last 24 Hours 04/27/23 04/27/23 04/27/23 12:40 17:34 19:54 POC Glucose (mg/dL) 283 H 166 H 181 H POC Glu Skate Maker ID Chiara Polo Stephanie [place]worth, Toni 04/28/23 07:47 POC Glucose (mg/dL) 242 H POC Glu Skate Maker ID Assessment Schizophrenia Plan: -Patient continues to meet criteria for inpatient psychiatric admission for symptom stabilization and safety. The patient has been petitioned and certified. -Medications: Increase Abilify to 20 mg daily with plans to transition to HALL Abilify maintena. Administer maintena 400 mg IM on Monday. Continue Remeron 15 mg at bedtime for depression -When necessary Ativan and Haldol for agitation/aggression. -SW on board for discharge planning. Encouraged the patient to participate in milieu.
[2023-04-28 12:44] LABS: Glucose,Whole Blood 230 mg/dL (70-110)
[2023-04-28 18:05] LABS: Glucose,Whole Blood 143 mg/dL (70-110)
[2023-04-28 20:04] LABS: Glucose,Whole Blood 165 mg/dL (70-110)
[2023-04-28] MEDS: MIRTAZAPINE 15 MG TAB PO SCH (20:05)
[2023-04-29 07:38] LABS: Glucose,Whole Blood 161 mg/dL (70-110)
[2023-04-29] MEDS: INSULIN ASPART (NovoLOG) 100 UNIT/ML VIAL SQ SCH ×7 (07:51→20:49)
[2023-04-29] MEDS: INSULIN DETEMIR (LEVEMIR) 100 UNIT/ML SYR SQ SCH (07:53)
--- NOTE | 2023-04-29 10:51 | P.PN ---
Progress Note - Text Progress Note Date: 04/29/23 Interval history: Patient was seen in the conference room and was directable and agreeable to speak with auto service writer. states that he is doing "okay". Reports suicidal ideations with plans to hang himself as well as homicidal ideations. Also reports command auditory hallucinations which she is hearing daily. Denies any r visual hallucinations. Patient denies any side effects from the medications and has been compliant with meds. Mental status exam: General Appearance: 52-year-old male who appears older than stated age, white hair with pratt Behavior: [No agitated behavior. Patient is calm and directable] Speech: low volume Mood/Affect: "okay" affect is incongruent to mood constricted appears depressed Suicidality/Homicidality: reports suicidal ideations with a plan to hang himself as well as homicidal ideations Perceptions: reports auditory hallucinations but denies visual hallucinations Though content/process: [There is no evidence of any delusional thought content and thought process is linear and goal-directed.] Memory and concentration: AOX3, grossly intact for the purposes of this session Judgment and insight: Assessment/Plan: Continue with current diagnosis. Patient continues to meet criteria for inpatient psychiatric admission for symptom stabilization and safety. Monitor for medication compliance and for any psychotropic medication side effects. Will continue to monitor ongoing response to treatment. Encouraged participation in milieu.
[2023-04-29 12:36] LABS: Glucose,Whole Blood 232 mg/dL (70-110)
[2023-04-29 17:37] LABS: Glucose,Whole Blood 164 mg/dL (70-110)
[2023-04-29 20:06] LABS: Glucose,Whole Blood 197 mg/dL (70-110)
[2023-04-29] MEDS: MIRTAZAPINE 15 MG TAB PO SCH (20:49)
[2023-04-30 07:39] LABS: Glucose,Whole Blood 180 mg/dL (70-110)
[2023-04-30] MEDS: INSULIN DETEMIR (LEVEMIR) 100 UNIT/ML SYR SQ SCH (07:56)
[2023-04-30] MEDS: INSULIN ASPART (NovoLOG) 100 UNIT/ML VIAL SQ SCH ×7 (07:58→20:08)
--- NOTE | 2023-04-30 09:49 | P.PN ---
Progress Note - Text Interval history: Patient was seen in the conference room and was directable and agreeable to speak with property underwriter. states that he is doing "good". Reports suicidal ideations with plans to hang himself as well as homicidal ideations. Also reports command auditory hallucinations which she is hearing daily. Denies any r visual hallucinations. States that he has not been taking his meds, although per EMR he has been taking his meds Mental status exam: General Appearance: 52-year-old male who appears older than stated age, white hair with pratt Behavior: [No agitated behavior. Patient is calm and directable] Speech: low volume Mood/Affect: "good" affect is incongruent to mood constricted appears depressed Suicidality/Homicidality: reports suicidal ideations with a plan to hang himself as well as homicidal ideations Perceptions: reports auditory hallucinations but denies visual hallucinations Though content/process: [There is no evidence of any delusional thought content and thought process is linear and goal-directed.] Memory and concentration: AOX3, grossly intact for the purposes of this session Judgment and insight: Assessment/Plan: Continue with current diagnosis. Patient continues to meet criteria for inpatient psychiatric admission for symptom stabilization and safety. Monitor for medication compliance and for any psychotropic medication side effects. Will continue to monitor ongoing response to treatment. Encouraged participation in milieu.
[2023-04-30] MEDS ORDERED: ARIPiprazole IM SYRINGE 400 MG (NO CHARGE) PHARMACY STOCK IM ONE (12:00)
[2023-04-30 12:42] LABS: Glucose,Whole Blood 175 mg/dL (70-110)
[2023-04-30 17:35] LABS: Glucose,Whole Blood 176 mg/dL (70-110)
[2023-04-30 19:53] LABS: Glucose,Whole Blood 112 mg/dL (70-110)
[2023-04-30] MEDS: MIRTAZAPINE 15 MG TAB PO SCH (20:54)
[2023-05-01 07:48] LABS: Glucose,Whole Blood 162 mg/dL (70-110)
[2023-05-01] MEDS: INSULIN DETEMIR (LEVEMIR) 100 UNIT/ML SYR SQ SCH (08:08)
[2023-05-01] MEDS: INSULIN ASPART (NovoLOG) 100 UNIT/ML VIAL SQ SCH ×7 (08:09→20:56)
--- NOTE | 2023-05-01 10:24 | P.PN ---
Progress Note - Text Progress Note Date: 05/01/23 Interval History: Patient was seen in attending group and was directable and agreeable to speak with tag writer in his room. This morning, the patient is reporting that the auditory hallucinations are severe. He states they are telling him to kill himself. He also reports his own suicidal ideation. He also reports today he is "homicidal towards everyone." He reports he would not but feels like he should hurt others. He reports generalized paranoia. He denies any visual hallucinations. He has been adherent with his medications. He reports no side effets. He denies any light-headedness or balance issues. Mental Status Exam: General Appearance: Patient appears to be slightly older than stated age is alert, directable, and cooperative. Behavior: Patient is calmly seated without any agitated behavior. Psychomotor slowing is evident. Speech: Patient's speech is fluent and nonpressured. Non-spontaneous. Monotone. Slow to respond. Mood/Affect: Mood is "not good." Affect is blunted, slightly irritable and angry. Suicidality/Homicidality: Patient reports both suicidal and homicidal ideation. Perceptions: Patient denies any visual hallucinations however he does endorse auditory hallucinations. Though content/process: [place]. Paranoid. Memory and concentration: AOX3, grossly intact for the purposes of this session Judgment and insight: fair Vital Signs Temp 97.7 F 04/28/23 06:50 Pulse 108 H 04/29/23 18:56 Resp 16 04/29/23 18:56 BP 103/67 04/29/23 18:56 Pulse Ox 99 04/29/23 18:56 FiO2 Intake & Output 04/30/23 05/01/23 05/01/23 18:59 06:59 18:59 Weight 73.4 kg Laboratory Results WBC 6.3 k/uL (3.8-10.6) 04/26/23 07:00 RBC 5.52 m/uL (4.30-5.90) 04/26/23 07:00 Hgb 15.2 gm/dL (13.0-17.5) 04/26/23 07:00 Hct 44.6 % (39.0-53.0) 04/26/23 07:00 MCV 80.9 fL (80.0-100.0) 04/26/23 07:00 MCH 27.6 pg (25.0-35.0) 04/26/23 07:00 MCHC 34.1 g/dL (31.0-37.0) 04/26/23 07:00 RDW 13.5 % (11.5-15.5) 04/26/23 07:00 Plt Count 179 k/uL (150-450) 04/26/23 07:00 MPV 8.8 04/26/23 07:00 Neutrophils % 85 % 04/26/23 07:00 Lymphocytes % 11 % 04/26/23 07:00 Monocytes % 3 % 04/26/23 07:00 Eosinophils % 0 % 04/26/23 07:00 Basophils % 0 % 04/26/23 07:00 Neutrophils # 5.3 k/uL (1.3-7.7) 04/26/23 07:00 Lymphocytes # 0.7 k/uL (1.0-4.8) L 04/26/23 07:00 Monocytes # 0.2 k/uL (0-1.0) 04/26/23 07:00 Eosinophils # 0.0 k/uL (0-0.7) 04/26/23 07:00 Basophils # 0.0 k/uL (0-0.2) 04/26/23 07:00 Sodium 137 mmol/L (137-145) 04/26/23 07:00 Potassium 4.0 mmol/L (3.5-5.1) 04/26/23 07:00 Chloride 100 mmol/L (98-107) 04/26/23 07:00 Carbon Dioxide 24 mmol/L (22-30) 04/26/23 07:00 Anion Gap 13 mmol/L 04/26/23 07:00 BUN 14 mg/dL (9-20) 04/26/23 07:00 Creatinine 0.57 mg/dL (0.66-1.25) L 04/26/23 07:00 Est GFR (CKD-EPI)AfAm >90 (>60 ml/min/1.73 sqM) 04/26/23 07:00 Est GFR (CKD-EPI)NonAf >90 (>60 ml/min/1.73 sqM) 04/26/23 07:00 Glucose 372 mg/dL (74-99) H 04/26/23 07:00 POC Glucose (mg/dL) 162 mg/dL (70-110) H 05/01/23 07:46 POC Glu Filter Worker ID Dominick Bangura 05/01/23 07:[address] Glu mg/dL 255 mg/dL 04/26/23 07:00 Hemoglobin A1c 10.5 % (<=6.0) H 04/26/23 07:00 Calcium 9.9 mg/dL (8.4-10.2) 04/26/23 07:00 Total Bilirubin 1.0 mg/dL (0.2-1.3) 04/26/23 07:00 AST 20 U/L (17-59) 04/26/23 07:00 ALT 22 U/L (4-49) 04/26/23 07:00 Alkaline Phosphatase 70 U/L (38-126) 04/26/23 07:00 Total Protein 7.2 g/dL (6.3-8.2) 04/26/23 07:00 Albumin 4.4 g/dL (3.5-5.0) 04/26/23 07:00 Triglycerides 141.00 mg/dL (0.00-149.00) 04/26/23 07:00 Cholesterol 236.00 mg/dL (0.00-200.00) H 04/26/23 07:00 LDL Cholesterol, Calc 139.1 mg/dL (0.0-131.0) H 04/26/23 07:00 VLDL Cholesterol, Calc 28.20 mg/dL (5.00-40.00) 04/26/23 07:00 HDL Cholesterol 68.70 mg/dL (40.00-60.00) H 04/26/23 07:00 Cholesterol/HDL Ratio 3.44 Ratio 04/26/23 07:00 TSH 0.971 mIU/L (0.465-4.680) 04/26/23 07:00 Assessment Schizophrenia Plan: -Patient continues to meet criteria for inpatient psychiatric admission for symptom stabilization and safety. The patient has been petitioned and cer tified. -Medications: Continue Abilify 20 mg daily. Abilify maintena 400 mg IM was administered on 04/30/2023 Continue Remeron 30 mg at bedtime for depression Start Lamictal 25 mg at bedtime for augmentation. -When necessary Ativan and Haldol for agitation/aggression. -SW on board for discharge planning. Encouraged the patient to participate in milieu.
[2023-05-01 12:49] LABS: Glucose,Whole Blood 208 mg/dL (70-110)
[2023-05-01 12:50] VITALS: BMI 22.6
[2023-05-01 17:44] LABS: Glucose,Whole Blood 182 mg/dL (70-110)
[2023-05-01 19:50] LABS: Glucose,Whole Blood 175 mg/dL (70-110)
[2023-05-01] MEDS: lamoTRIgine 25 MG TAB PO SCH (20:56)
[2023-05-01] MEDS: MIRTAZAPINE 15 MG TAB PO SCH (20:56)
[2023-05-02 07:48] LABS: Glucose,Whole Blood 247 mg/dL (70-110)
[2023-05-02] MEDS: INSULIN DETEMIR (LEVEMIR) 100 UNIT/ML SYR SQ SCH (08:12)
[2023-05-02] MEDS: INSULIN ASPART (NovoLOG) 100 UNIT/ML VIAL SQ SCH ×7 (08:13→21:39)
--- NOTE | 2023-05-02 10:18 | P.PN ---
Progress Note - Text Progress Note Date: 05/02/23 Interval History: Patient was seen in attending group and was directable and agreeable to speak with program writer in the office. The patient states that he is feeling "better" however states his auditory hallucinations are "bothersome." He states they continue to tell him to do things such as kill himself. He continues to endorse both suicidal and homicidal ideation. He reports he does not feel safe to return home because the voices may cause him to hurt himself. He has been adherent with his medications and reports no side effects. Mental Status Exam: Grossly unchanged from yesterday. General Appearance: Patient appears to be slightly older than stated age is alert, directable, and cooperative. Behavior: Patient is calmly seated without any agitated behavior. Psychomotor slowing is evident. Speech: Patient's speech is fluent and nonpressured. Non-spontaneous. Mo notone. Slow to respond. Mood/Affect: Mood is "not good." Affect is flat. Suicidality/Homicidality: Patient reports both suicidal and homicidal ideation. Perceptions: Patient denies any visual hallucinations however he does endorse auditory hallucinations. Though content/process: [place]. Paranoid. Memory and concentration: AOX3, grossly intact for the purposes of this session Judgment and insight: fair Vital Signs Temp 97.9 F 05/02/23 06:51 Pulse 113 H 05/02/23 06:51 Resp 18 05/02/23 06:51 BP 127/78 05/02/23 06:51 Pulse Ox 98 05/02/23 06:51 FiO2 Intake & Output 05/01/23 05/02/23 05/02/23 18:59 06:59 18:59 Weight 73.4 kg Laboratory Results - Last 24 Hours 05/01/23 05/01/23 05/01/23 12:47 17:42 19:44 POC Glucose (mg/dL) 208 H 182 H 175 H POC Glu Consumer Affairs Manager ID Dominick Bangura Yumi 05/02/23 07:46 POC Glucose (mg/dL) 247 H POC Glu Consumer Affairs Manager ID Dmoinick Bangura Assessment Schizophrenia Plan: -Patient continues to meet criteria for inpatient psychiatric admission for symptom stabilization and safety. The patient has been petitioned and certified. He deferred mental health court. -Medications: Continue Abilify 20 mg daily. Abilify maintena 400 mg IM was administered on 04/30/2023 Continue Remeron 30 mg at bedtime for depression Continue Lamictal 25 mg at bedtime for augmentation. Start Prolixin 2.5 mg twice a day for psychosis. EKG ordered. -When necessary Ativan and Haldol for agitation/aggression. -SW on board for discharge planning. Encouraged the patient to participate in milieu.
[2023-05-02 12:42] LABS: Glucose,Whole Blood 262 mg/dL (70-110)
[2023-05-02 17:57] LABS: Glucose,Whole Blood 234 mg/dL (70-110)
[2023-05-02 20:01] LABS: Glucose,Whole Blood 231 mg/dL (70-110)
[2023-05-02] MEDS: MIRTAZAPINE 15 MG TAB PO SCH (21:39)
[2023-05-02] MEDS: lamoTRIgine 25 MG TAB PO SCH (21:39)
[2023-05-02 22:28] LABS: Glucose,Whole Blood 320 mg/dL (70-110)
[2023-05-03 07:02] VITALS: RESP 14
[2023-05-03 07:47] LABS: Glucose,Whole Blood 268 mg/dL (70-110)
[2023-05-03] MEDS: INSULIN DETEMIR (LEVEMIR) 100 UNIT/ML SYR SQ SCH (07:53)
[2023-05-03] MEDS: INSULIN ASPART (NovoLOG) 100 UNIT/ML VIAL SQ SCH ×7 (07:54→21:19)
--- NOTE | 2023-05-03 10:57 | P.PN ---
Progress Note - Text Progress Note Date: 05/03/23 Interval History: That he is feeling better today. He continues to report that he expresses auditory hallucinations however states that they are less severe. He is inquiring about the medication that was prescribed for him stating that it appears to be helping him. He is not reporting any suicidal or homicidal ideation, intention, and/or plan. He reports no issues regarding his sleep or his appetite. However, the patient did have mechanical fall in the shower. He does report some lightheadedness and sore had been otherwise no other issues or concerns. He denies any medical issues or concerns this provider. He has been adherent with his medication and is not reporting any side effects. Mental Status Exam: General Appearance: Patient appears to be slightly older than stated age is alert, directable, and cooperative. Hygiene and grooming however appears to be poor as the patient has significant body odor. Suspect the patient either soiled himself or has halitosis. Behavior: Patient is calmly seated without any agitated behavior. Normal psychomotor activity today. Speech: Patient's speech is fluent and nonpressured. More spontaneous today. More verbal. Mood/Affect: Mood is "feeling better." Affect is constricted. Suicidality/Homicidality: Patient reports both suicidal and homicidal ideation. Perceptions: Patient denies any visual hallucinations however he does endorse auditory hallucinations. Though content/process: [place]. Paranoid. Memory and concentration: AOX3, grossly intact for the purposes of this session Judgment and insight: fair Vital Signs Temp 97.3 F L 05/03/23 06:32 Pulse 89 05/03/23 06:32 Resp 14 05/03/23 06:32 BP 130/78 05/03/23 06:32 Pulse Ox 98 05/03/23 06:32 FiO2 Laboratory Results - Last 24 Hours 05/02/23 05/02/23 05/02/23 12:41 17:55 20:00 POC Glucose (mg/dL) 262 H 234 H 231 H POC Glu Oncology Registrar ID Dominick Bangura Garrett Young, Nicole 05/02/23 05/03/23 22:27 07:41 POC Glucose (mg/dL) 320 H 268 H POC Glu Oncology Registrar ID Darcie Peters Assessment Schizophrenia Plan: -Patient continues to meet criteria for inpatient psychiatric admission for symptom stabilization and safety. The patient has been petitioned and certified. He deferred mental health court. -Medications: Continue Abilify 20 mg daily. Abilify maintena 400 mg IM was administered on 04/30/2023 Continue Remeron 30 mg at bedtime for depression Continue Lamictal 25 mg at bedtime for augmentation. Continue Prolixin 2.5 mg twice a day for psychosis. EKG ordered. -When necessary Ativan and Haldol for agitation/aggression. -SW on board for discharge planning. Encouraged the patient to participate in milieu.
[2023-05-03 12:44] LABS: Glucose,Whole Blood 259 mg/dL (70-110)
[2023-05-03 17:40] LABS: Glucose,Whole Blood 233 mg/dL (70-110)
[2023-05-03 20:07] LABS: Glucose,Whole Blood 224 mg/dL (70-110)
[2023-05-03] MEDS: MIRTAZAPINE 15 MG TAB PO SCH (21:20)
[2023-05-03] MEDS: lamoTRIgine 25 MG TAB PO SCH (21:20)
[2023-05-04 07:08] VITALS: BP 138/78; PULSE 92; TEMP 97.6
[2023-05-04 07:50] LABS: Glucose,Whole Blood 325 mg/dL (70-110)
[2023-05-04] MEDS: INSULIN ASPART (NovoLOG) 100 UNIT/ML VIAL SQ SCH ×7 (08:18→20:22)
[2023-05-04] MEDS: INSULIN DETEMIR (LEVEMIR) 100 UNIT/ML SYR SQ SCH (08:19)
--- NOTE | 2023-05-04 11:39 | P.PN ---
Progress Note - Text Progress Note Date: 05/04/23 Interval History: The patient has been observed by staff to wander around the unit naked. He required much redirection. Furthermore, the patient did soil himself yesterday. When interviewed, the patient appeared to be confused and was not alert or oriented in any sphere. He was only able to identify his first name correctly. He is unable to provide reasoning as to why he was naked except stating that he was "hot." He is currently endorsing suicidal ideation. However is not reporting any auditory hallucinations since provider today. He reports no issues regarding his sleep or his appetite. He is denying any medical issues or concerns and is denying any fevers or chills, dysuria, or shortness of breath. He has been adherent with his medications and is not reporting any significant side effects. Mental Status Exam: General Appearance: Patient appears to be slightly older than stated age is confused, but directable, and cooperative. Behavior: Patient is calmly seated without any agitated behavior. Psychomotor slowing is evident today. Speech: Patient's speech is nonspontaneous. Monotone. Mood/Affect: Mood is "not good." Affect is blunted. Suicidality/Homicidality: Patient reports both suicidal and homicidal ideation. Perceptions: Patient denies any visual hallucinations however he does endorse auditory hallucinations. Though content/process: Confused. Memory and concentration: Grossly poor Judgment and insight: fair Vital Signs Temp 97.6 F 05/04/23 06:34 Pulse 92 05/04/23 06:34 Resp 14 05/04/23 06:34 BP 138/78 05/04/23 06:34 Pulse Ox 98 05/03/23 06:32 FiO2 Assessment Schizophrenia Plan: -Patient continues to meet criteria for inpatient psychiatric admission for symptom stabilization and safety. The patient has been petitioned and certified. He deferred mental health court. -Concern for altered mental status. We will order CBC, CMP, and urinalysis. -There is also suspicion that the patient may be reacting to being informed that he would likely be discharged today. We will continue to monitor and treat for acute change in mentation. -Medications: Continue Abilify 20 mg daily. Abilify maintena 400 mg IM was administered on 04/30/2023 Decrease Remeron to 15 mg at bedtime for depression Increase Lamictal to 50 mg at bedtime for augmentation. Continue Prolixin 2.5 mg twice a day for psychosis. -When necessary Ativan and Haldol for agitation/aggression. -SW on board for discharge planning. Encouraged the patient to participate in milieu.
[2023-05-04 11:51] LABS: Basophils % (A) 0 %; Eosinophils % (A) 1 %; HCT 39.2 % (39.0-53.0); HGB 13.5 gm/dL (13.0-17.5); Lymphocytes # (A) 0.7 k/uL (1.0-4.8); Lymphocytes % (A) 21 %; MCH 27.9 pg (25.0-35.0); MCHC 34.5 g/dL (31.0-37.0); Mean Platelet Volume 7.5; Monocytes # (A) 0.2 k/uL (0-1.0); Monocytes % (A) 6 %; Neutrophils # (A) 2.3 k/uL (1.3-7.7); Neutrophils % (A) 70 %; Platelet Count 177 k/uL (150-450); RBC 4.84 m/uL (4.30-5.90); RDW 13.3 % (11.5-15.5); WBC 3.3 k/uL (3.8-10.6)
[2023-05-04 12:33] LABS: Potassium 4.2 mmol/L (3.5-5.1)
[2023-05-04 12:34] LABS: ALT 21 U/L (4-49); AST 21 U/L (17-59); African American GFR (CKD) >90 (>60 ml/min/1.73 sqM); Albumin 3.5 g/dL (3.5-5.0); Alkaline Phosphatase 73 U/L (38-126); Anion Gap 5 mmol/L; Blood Urea Nitrogen 9 mg/dL (9-20); Calcium 9.3 mg/dL (8.4-10.2); Carbon Dioxide 29 mmol/L (22-30); Chloride 106 mmol/L (98-107); Glucose 262 mg/dL (74-99); Non-African American GFR(CKD) >90 (>60 ml/min/1.73 sqM); Sodium 140 mmol/L (137-145); Total Bilirubin 0.4 mg/dL (0.2-1.3); Total Protein 6.2 g/dL (6.3-8.2)
[2023-05-04 13:52] LABS: Glucose,Whole Blood 276 mg/dL (70-110)
[2023-05-04 17:46] LABS: Glucose,Whole Blood 205 mg/dL (70-110)
[2023-05-04 20:02] LABS: Glucose,Whole Blood 191 mg/dL (70-110)
[2023-05-04] MEDS ORDERED: MIRTAZAPINE 15 MG TAB PO SCH (21:00)
[2023-05-04] MEDS ORDERED: lamoTRIgine 25 MG TAB PO SCH (21:00)
[2023-05-05 07:40] LABS: Glucose,Whole Blood 265 mg/dL (70-110)
[2023-05-05] MEDS: INSULIN DETEMIR (LEVEMIR) 100 UNIT/ML SYR SQ SCH (08:42)
[2023-05-05] MEDS: INSULIN ASPART (NovoLOG) 100 UNIT/ML VIAL SQ SCH ×2 (08:42→08:43)
[2023-05-05 10:27] LABS: Glucose,Whole Blood 276 mg/dL (70-110)
--- NOTE | 2023-05-05 11:47 | P.DS ---
Providers Date of admission: 04/24/23 07:32 Expected date of discharge: 05/05/23 Attending physician: Rickey Noriega MD Consults: 04/24/23 07:03 Consult Physician Routine Consulting Provider: Dae Brewer Consult Reason/Comments: h and p Do you want consulting provider notified?: Yes, Notify in am Primary care physician: Corwin Khan - Discharge Diagnosis(es) (1) Schizophrenia Current Visit: Yes Status: Acute Priority: High (2) Malingering Current Visit: Yes Status: Suspected Priority: High Hospital Course: Admission HPI: Patient is a , unemployed 52-year-old male with a significant history of psychosis who presented to our hospital on 04/24/2023 under petition and certification for psychiatric evaluation and treatment. Patient presented to the hospital on 04/24/2023 brought in under petition and certification for psychosis. As per petition filled out bya certified social workers in health care at the [facility], "Per Omi, 'I'm going crazy. The voice won't leave me alone. He tells me all the time to kill or harm myself.' He has not filled his medications for over the last 3 months. He was certified and transferred onto our psychiatric unit. Upon evaluation by this provider, the patient states that he is here because he has been off his medications. He does admit to hearing voices that are commanding him to hurt himself or kill himself. When asked if he would like to be back on medications however, the patient states he does not want to. He explicitly states multiple times for clarification, "I do not want to be on any of my meds." He reports no current suicidal or homicidal ideation. He is unable to provide clear history of events leading up to this hospitalization. He is guarded and suspicious of this provider and terminates the interview early. PAST PSYCHIATRIC HISTORY: Patient has had previous diagnoses of psychosis. He has been off any sort of medications including his psychotropic medications for the past 3 years. He was last hospitalized on our psychiatric unit in May of 2017. He does not mention other psychiatric admissions. Patient denies any psychiatric outpatient follow-up.Patient denies any history of suicide attempts in the past. From his previous admission in 2017: "This is the patient's third psychiatric admission his first was in August 2016 and his most recent was from May 16 until 05/24/2017. Patient was discharged on Geodon 80 mg twice a day and Zoloft 100 mg a day. Patient has been tried on Latuda and Abilify in the past. Patient stated to me that he had been seen by [facility] in 2009 and placed on Abilify at that time because he was having paranoid ideation he states that he continued the medication for 1 year and discontinued it and received no treatment until his admission here in 2015. He states that he has been on Wellbutrin and Prozac in the past and was placed on Wellbutrin in 2006 by his primary care physician." Hospital course: Upon admission to the unit patient was initially presenting as disheveled, uncooperative, and obstinate to this provider. Patient was eventually however directable and agreeable to commence treatment. Patient got along well with other patients on the unit and followed unit protocol. Patient was compliant with the medications and denied any side effects throughout hospital course. Patient was started on Risperdal to address his psychosis however the patient did endorse feeling lightheaded and experienced a fall. He was therefore transitioned to Abilify and was later administered Abilify long-acting injectable which he received on 04/30/2023. As the patient displayed significant improvement in regards to target symptoms of psychosis, the patient then began to experience a sudden decline and presented with inconsistent symptoms. On one of his hospitalization days, the patient displayed very irritable behavior. On another day, the patient had very poor hygiene and grooming. When he was informed that he was going to be discharged, the patient started presenting with increased confusion and disorientation. This morning, the patient refused to speak at all to this provider or staff however was able to eat and sleep appropriately. He also participated in group activities. Therefore, there is a concern that the patient has been displaying behaviors in order to achieve secondary gain. The patient has reportedly no housing at this time. As the patient no longer met criteria for continued inpatient psychiatric hospitalization, and has been displaying behaviors inconsistent with his initial diagnosis with the goal of lengthening his stay, the patient was subsequently discharged. Mental status exam: General Appearance: Patient appears to be stated age is alert, and cooperative however does not speak. Patient is in no acute distress and has fair hygiene and grooming Behavior: Patient states that this provider blankly. Speech: Patient's speech is fluent and nonpressured. Mood/Affect: Patient mood cannot be assessed as he does not speak today, affect is constricted. Suicidality/Homicidality: Unable to assess as patient does not speak today Perceptions: Unable to assess as patient does not speak today Though content/process: Concern for secondary gain Memory and concentration: Unable to assess as patient does not speak today Judgment and insight: Fair Impression: Schizophrenia Malingering Plan: -Continue with discharge today as patient has improved and stabilized psychiatrically and is not currently an imminent threat to himself and/or others. Patient remain at chronically elevated risk due to the severity of his mental home as. Patient also has a lack of housing at this time. -Continue medications: Abilify 20 mg by mouth daily for 10 days Abilify maintena 400 mg IM with his next dose due on 05/28/2023. Remeron 15 mg daily at bedtime for depression Lamictal 50 mg for mood augmentation -Patient was counseled on the need for medication compliance and appropriate follow-up at mental health and also primary care for medical issues. Patient verbalized understanding and agreed. -Social work to arrange for and conduct family meeting to ensure safety upon discharge and answer any questions/concerns. Social work also to arrange for patients follow up appointments with [facility] for psychiatric care along with follow up with primary care provider. -Patient counseled on abstaining from recreational drugs and marijuana and alcohol. Was informed/educated on the adverse effects on their physical and mental health. -Patient was instructed to return to the hospital or seek immediate medical care if their psychiatric or medical symptoms do worsen or reoccur. -Psychoeducation and supportive therapy provided to patient. Risks and benefits of pharmacological treatment versus the risks and benefits of nontreatment weighed and discussed. Informed consent discussion held during the hospitalization. Common side effects of psychotropics discussed such as, but not limited to headache, GI disturbance, sexual dysfunction, movement disorders, sedation, and orthostatic hypotension. Life threatening and blackbox warnings of prescribed medications also discussed. Potential risks of operating a vehicle or heavy machinery discussed with patient at length. Advised on importance of compliance and a reliable and responsible manner. Patient advised to review FDA consumer labeling of all medications prior to taking. Patient advised to medically contact physician/emergency personnel if any acute changes in condition occur. Vital Signs Temp 97.6 F 05/04/23 06:34 Pulse 92 05/04/23 06:34 Resp 14 05/04/23 06:34 BP 138/78 05/04/23 06:34 Pulse Ox 98 05/03/23 06:32 FiO2 Intake & Output 05/04/23 05/05/23 05/05/23 18:59 06:59 18:59 Weight 73.4 kg Laboratory Results WBC 3.3 k/uL (3.8-10.6) L 05/04/23 11:37 RBC 4.84 m/uL (4.30-5.90) 05/04/23 11:37 Hgb 13.5 gm/dL (13.0-17.5) 05/04/23 11:37 Hct 39.2 % (39.0-53.0) 05/04/23 11:37 MCV 81.0 fL (80.0-100.0) 05/04/23 11:37 MCH 27.9 pg (25.0-35.0) 05/04/23 11:37 MCHC 34.5 g/dL (31.0-37.0) 05/04/23 11:37 RDW 13.3 % (11.5-15.5) 05/04/23 11:37 Plt Count 177 k/uL (150-450) 05/04/23 11:37 MPV 7.5 05/04/23 11:37 Neutrophils % 70 % 05/04/23 11:37 Lymphocytes % 21 % 05/04/23 11:37 Monocytes % 6 % 05/04/23 11:37 Eosinophils % 1 % 05/04/23 11:37 Basophils % 0 % 05/04/23 11:37 Neutrophils # 2.3 k/uL (1.3-7.7) 05/04/23 11:37 Lymphocytes # 0.7 k/uL (1.0-4.8) L 05/04/23 11:37 Monocytes # 0.2 k/uL (0-1.0) 05/04/23 11:37 Eosinophils # 0.0 k/uL (0-0.7) 05/04/23 11:37 Basophils # 0.0 k/uL (0-0.2) 05/04/23 11:37 Sodium 140 mmol/L (137-145) 05/04/23 11:37 Potassium 4.2 mmol/L (3.5-5.1) 05/04/23 11:37 Chloride 106 mmol/L (98-107) 05/04/23 11:37 Carbon Dioxide 29 mmol/L (22-30) 05/04/23 11:37 Anion Gap 5 mmol/L 05/04/23 11:37 BUN 9 mg/dL (9-20) 05/04/23 11:37 Creatinine 0.60 mg/dL (0.66-1.25) L 05/04/23 11:37 Est GFR (CKD-EPI)AfAm >90 (>60 ml/min/1.73 sqM) 05/04/23 11:37 Est GFR (CKD-EPI)NonAf >90 (>60 ml/min/1.73 sqM) 05/04/23 11:37 Glucose 262 mg/dL (74-99) H 05/04/23 11:37 POC Glucose (mg/dL) 265 mg/dL (70-110) H 05/05/23 07:36 POC Glu [employer] Consultant LATHA Mayra Allen 05/05/23 07:[address] Glu mg/dL 255 mg/dL 04/26/23 07:00 Hemoglobin A1c 10.5 % (<=6.0) H 04/26/23 07:00 Calcium 9.3 mg/dL (8.4-10.2) 05/04/23 11:37 Total Bilirubin 0.4 mg/dL (0.2-1.3) 05/04/23 11:37 AST 21 U/L (17-59) 05/04/23 11:37 ALT 21 U/L (4-49) 05/04/23 11:37 Alkaline Phosphatase 73 U/L (38-126) 05/04/23 11:37 Total Protein 6.2 g/dL (6.3-8.2) L 05/04/23 11:37 Albumin 3.5 g/dL (3.5-5.0) 05/04/23 11:37 Triglycerides 141.00 mg/dL (0.00-149.00) 04/26/23 07:00 Cholesterol 236.00 mg/dL (0.00-200.00) H 04/26/23 07:00 LDL Cholesterol, Calc 139.1 mg/dL (0.0-131.0) H 04/26/23 07:00 VLDL Cholesterol, Calc 28.20 mg/dL (5.00-40.00) 04/26/23 07:00 HDL Cholesterol 68.70 mg/dL (40.00-60.00) H 04/26/23 07:00 Cholesterol/HDL Ratio 3.44 Ratio 04/26/23 07:00 TSH 0.971 mIU/L (0.465-4.680) 04/26/23 07:00 Allergies Allergy/AdvReac Type Severity Reaction Status Date / Time No Known Allergies Allergy Verified 04/24/23 10:41 Patient Condition at Discharge: Stable Plan - Discharge Summary Discharge Rx Participant: No New Discharge Prescriptions: New fluPHENAZine [Prolixin] 2.5 mg PO BID 30 Days #60 tab ARIPiprazole IM [Abilify Maintena] 400 mg IM QMONTHLY 1 Days #1 each ARIPiprazole [Abilify] 20 mg PO DAILY 10 Days #10 tab lamoTRIgine [LaMICtal] 50 mg PO HS 30 Days #60 tab Mirtazapine [Remeron] 15 mg PO HS 30 Days #30 tab Discharge Medication List ARIPiprazole IM [Abilify Maintena] 400 mg IM QMONTHLY 1 Days #1 each 05/05/23 [Rx] ARIPiprazole [Abilify] 20 mg PO DAILY 10 Days #10 tab 05/05/23 [Rx] Mirtazapine [Remeron] 15 mg PO HS 30 Days #30 tab 05/05/23 [Rx] fluPHENAZine [Prolixin] 2.5 mg PO BID 30 Days #60 tab 05/05/23 [Rx] lamoTRIgine [LaMICtal] 50 mg PO HS 30 Days #60 tab 05/05/23 [Rx] Follow up Appointment(s)/Referral(s): [facility] [Outside] - 05/17/23 9:30 am (with Corwin Lees NPC [Primary Care Provider] - 1 Week Patient Instructions/Handouts: Brief Psychotic Disorder (DC) Activity/Diet/Wound Care/Special Instructions: Avoid the use of street drugs and alcohol. Take all medications as prescribed. When you are in need of refills on your medications, please contact your medical provider and/or outpatient psychiatrist to have this done. Please go to scheduled outpatient appointments for aftercare treatment. If symptoms return or become worse, call the crisis line at and/or go to the nearest emergency room for evaluation. Please resume your toujeo at home and continue to follow with Corwin CARRILLO here diabetic needs. Discharge Disposition: HOME SELF-CARE
== END 2023-05-05 12:37 | disposition home or self-care (01) | DRG 885 ==
LOC: 3MHU 07:32
PROVIDERS: ADMIT Psychiatry & Neurology Psychiatry; ATTEND Psychiatry & Neurology Psychiatry
DX: F20.9 Schizophrenia, unspecified (principal); R45.851 Suicidal ideations; E11.65 Type 2 diabetes mellitus with hyperglycemia; E78.5 Hyperlipidemia, unspecified; F41.9 Anxiety disorder, unspecified; I10 Essential (primary) hypertension; R45.850 Homicidal ideations; W18.2XXA Fall in (into) shower or empty bathtub, initial encounter; Y93.E1 Activity, personal bathing and showering; Z76.5 Malingerer [conscious simulation]; Z79.899 Other long term (current) drug therapy; Z81.8 Family history of other mental and behavioral disorders; Z82.49 Family history of ischemic heart disease and other diseases of the circulatory system; Z91.148 Patient's other noncompliance with medication regimen for other reason
CPT/HCPCS: 70450; 80053; 80061; 83036; 84443; 85025; 93005

== ENCOUNTER 2024-03-20 04:06 | Inpatient (IN) | payer MEDICARE, OTHER ==
--- NOTE | 2024-03-20 05:03 | ED ---
General Adult HPI <Corwin Tejada - Last Filed: 03/20/24 10:09> <Brett Gonzalez Cindy - Last Filed: 03/20/24 21:58> - General Source: patient, EMS Mode of arrival: EMS Limitations: altered mental status - History of Present Illness -: unknown Severity scale (1-10): 0 Consistency: constant Improves with: none Worsens with: none Associated Symptoms: weakness Treatments Prior to Arrival: other (IV fluids administered) <Raghu Joseph - Last Filed: 04/08/24 13:36> - General Chief complaint: Weakness Stated complaint: Weakness Time Seen by Provider: 03/20/24 04:34 - History of Present Illness Initial comments: This patient is a 53-year-old man who reportedly has history of mood disorder, schizophrenia, and previous catatonic episode. The patient arrives here as transfer from [facility]. He was reportedly sent there from what sounds like a rescue mission. It was reported me that the patient's brother had dropped the patient there and that after he was evaluated he was sent to the hospital. When I interviewed the patient, he states that he is feeling well. He is denying complaints when asked of pain, dyspnea, nausea. The patient paperwork from the other hospital states that they wanted him admitted to psychiatry as he has had previous similar episodes to this when his underlying psychiatric disease flares up. The patient reportedly had fallen a couple of days ago and then had been lying on the floor for an unknown period of time. At the other facility his CPK was found to be 1070. His workup included head CT reported to be negative for acute intracranial hemorrhage or fracture. The remainder of the patient's labs include normal CBC, chemistry is remarkable only for blood glucose of 160. Alcohol Tylenol and salicylates were negative. TSH was normal. Urine drug screen was negative. (Raghu Joseph) - Related Data Home Medications Medication Instructions Recorded Confirmed Atorvastatin [Lipitor] 40 mg PO HS 03/20/24 03/20/24 INSULIN LISPRO (HumaLOG) [humaLOG] See Protocol SQ ACHS 03/20/24 03/20/24 Pioglitazone [Actos] 30 mg PO DAILY 03/20/24 03/20/24 Sertraline [Zoloft] 25 mg PO DAILY 03/20/24 03/20/24 Tamsulosin HCl [Flomax] 0.4 mg PO DAILY 03/20/24 03/20/24 busPIRone HCl [Buspar] 10 mg PO BID 03/20/24 03/20/24 lisinopriL 2.5 mg PO DAILY 03/20/24 03/20/24 metFORMIN HCL 1,000 mg PO BID 03/20/24 03/20/24 Previous Rx's Medication Instructions Recorded Acetaminophen Tab [Tylenol] 650 mg PO Q6HR PRN tab 03/24/24 Pantoprazole [Protonix] 40 mg PO AC-[id number] tab 03/24/24 Insulin Glargine Max U-300 22 units SQ HS #0 04/04/24 LORazepam [Ativan] 0.5 mg PO BID #6 tab 04/04/24 Allergies Allergy/AdvReac Type Severity Reaction Status Date / Time cephalexin [From Keflex] Allergy Rash/Hives Verified 03/20/24 08:10 Review of Systems ROS Other: All systems not noted in ROS Statement are negative. <Corwin Tejada - Last Filed: 03/20/24 10:09> ROS Other: All systems not noted in ROS Statement are negative. <Brett Gonzalez - Last Filed: 03/20/24 21:58> ROS Other: All systems not noted in ROS Statement are negative. Limitations: ROS unobtainable due to patients medical condition Constitutional: Denies: fever Respiratory: Denies: cough, dyspnea Cardiovascular: Denies: chest pain Gastrointestinal: Denies: abdominal pain, vomiting Genitourinary: Denies: dysuria, hematuria Musculoskeletal: Denies: back pain Skin: Denies: rash Neurological: Denies: headache Psychiatric: Denies: homicidal thoughts, suicidal thoughts <Raghu Joseph - Last Filed: 04/08/24 13:36> ROS Statement: Those systems with pertinent positive or pertinent negative responses have been documented in the HPI. Past Medical History Past Medical History: Diabetes Mellitus, Hyperlipidemia, Hypertension History of Any Multi-Drug Resistant Organisms: None Reported Additional Past Surgical History / Comment(s): right shoulder Past Anesthesia/Blood Transfusion Reactions: No Reported Reaction Past Psychological History: No Psychological Hx Reported, Bipolar, Depression, Schizoaffective Disorder Smoking Status: Never smoker Past Alcohol Use History: None Reported Past Drug Use History: None Reported - Past Family History Father Family Medical History: Hypertension <Raghu Joseph - Last Filed: 04/08/24 13:36> General Exam Limitations: altered mental status General appearance: alert, in no apparent distress Head exam: Present: atraumatic, normocephalic Eye exam: Present: normal appearance, PERRL, EOMI. Absent: scleral icterus, conjunctival injection ENT exam: Present: mucous membranes dry Neck exam: Present: normal inspection, full ROM. Absent: tenderness Respiratory exam: Present: normal lung sounds bilaterally. Absent: respiratory distress, wheezes, rales, rhonchi, stridor, accessory muscle use Cardiovascular Exam: Present: regular rate, normal rhythm, normal heart sounds. Absent: systolic murmur, diastolic murmur, rubs, gallop GI/Abdominal exam: Present: soft. Absent: distended, tenderness, guarding, rebound, rigid, mass Extremities exam: Present: normal inspection, normal capillary refill. Absent: pedal edema, calf tenderness Neurological exam: Present: alert, CN II-XII intact, other (Patient is able to follow commands). Absent: oriented X3 (Oriented to person and recognizes he is in hospital), motor sensory deficit Psychiatric exam: Present: flat affect. Absent: homicidal ideation, suicidal ideation Skin exam: Present: warm, dry, intact. Absent: rash <Raghu Joseph - Last Filed: 04/08/24 13:36> Course Vital Signs 03/20/24 03/20/24 03/20/24 04:16 06:27 07:45 Temperature 98.6 F Pulse Rate 76 72 81 Respiratory 12 16 16 Rate Blood Pressure 135/80 116/83 133/83 O2 Sat by Pulse 96 96 97 Oximetry 03/20/24 03/20/24 03/20/24 10:22 12:42 13:47 Temperature Pulse Rate 90 106 H 96 Respiratory 16 16 16 Rate Blood Pressure 150/90 159/103 143/87 O2 Sat by Pulse 96 95 96 Oximetry 03/20/24 03/20/24 03/20/24 15:15 16:52 18:48 Temperature Pulse Rate 108 H 112 H 99 Respiratory 18 18 18 Rate Blood Pressure 171/106 166/95 147/87 O2 Sat by Pulse 96 95 94 L Oximetry 03/20/24 03/20/24 03/20/24 19:30 20:02 23:45 Temperature Pulse Rate 106 H 110 H 104 H Respiratory 18 18 16 Rate Blood Pressure 160/98 151/102 140/80 O2 Sat by Pulse 96 97 97 Oximetry Medical Decision Making - Lab Data Result diagrams: 03/20/24 06:34 03/20/24 06:34 <MalloryCorwin Mckay - Last Filed: 03/20/24 10:09> - Lab Data Result diagrams: 03/20/24 06:34 03/20/24 06:34 <Brett Gonzalez - Last Filed: 03/20/24 21:58> - Lab Data Result diagrams: 03/24/24 07:07 03/31/24 06:46 <Raghu Joseph - Last Filed: 04/08/24 13:36> - Medical Decision Making Was pt. sent in by a medical professional or institution (DAPHNE Schroeder, AD WRITER, urgent care, hospital, or long term...) When possible be specific @ -No Did you speak to anyone other than the patient for history (EMS, parent, family, police, friend...)? What history was obtained from this source @ -No Did you review nursing and triage notes (agree or disagree)? Why? @ -I reviewed and agree with nursing and triage notes Were old charts reviewed (outside hosp., previous admission, EMS record, old EKG, old radiological studies, urgent care reports/EKG's, long term records)? Report findings @ -No old charts were reviewed Differential Mental Health Depression, anxiety, bipolar, psychosis, schizophrenia, borderline personality, situational depression, adjustment disorder, behavioral disorder, brain tumor, malingering, substance abuse, encephalopathy, medication reaction, dementia, hypothyroidism, degenerative neurologic disorder, lupus.... This is not meant to be all-inclusive list EKG interpreted by me (3pts min.). @ -As above X-rays interpreted by me (1pt min.). @ -None done CT interpreted by me (1pt min.). @ -None done U/S interpreted by me (1pt. min.). @ -None done What testing was considered but not performed or refused? (CT, X-rays, U/S, labs)? Why? @ -None What meds were considered but not given or refused? Why? @ -None Did you discuss the management of the patient with other professionals (professionals i.e. DrRojelio, PA, AD WRITER, lab, RT, psych nurse, manager social media, card cutter, teacher, child support officer, director case management)? Give summary @ -No Was smoking cessation discussed for >3mins.? @ -No Was critical care preformed (if so, how long)? @ -No Were there social determinants of health that impacted care today? How? (Homelessness, low income, unemployed, alcoholism, drug addiction, transportation, low edu. Level, literacy, decrease access to med. care, correction, rehab)? @ -No Was there de-escalation of care discussed even if they declined (Discuss DNR or withdrawal of care, Hospice)? DNR status @ -No What co-morbidities impacted this encounter? (DM, HTN, Smoking, COPD, CAD, Cancer, CVA, ARF, Chemo, Hep., AIDS, mental health diagnosis, sleep apnea, morbid obesity)? @ -None Was patient admitted / discharged? Hospital course, mention meds given and route , prescriptions, significant lab abnormalities, going to OR and other pertinent info. @ -Patient had been valuated by previous physician and cleared medically and was awaiting EPS evaluation. He was evaluated by EPS we did feel that this patient should be admitted for further psychiatric evaluation and treatment. Undiagnosed new problem with uncertain prognosis? @ -No Drug Therapy requiring intensive monitoring for toxicity (Heparin, Nitro, Insulin, Cardizem)? @ -No Were any procedures done? @ -No Diagnosis/symptom? @Acute psychosis Acute, or Chronic, or Acute on Chronic? @ -Acute Uncomplicated (without systemic symptoms) or Complicated (systemic symptoms)? @ -Default Side effects of treatment? @ -No Exacerbation, Progression, or Severe Exacerbation? @ -No Poses a threat to life or bodily function? How? (Chest pain, [place], [place], pneumonia, PE, COPD, DKA, ARF, appy, cholecystitis, CVA, Diverticulitis, Homicidal, Suicidal, threat to staff... and all critical care pts) @ -No (Corwin Tejada) - Lab Data Lab Results 03/20/24 03/20/24 03/20/24 Range/Units 06:34 06:34 10:26 WBC 5.8 (3.8-10.6) k/uL RBC 4.78 (4.30-5.90) m/uL Hgb 13.1 (13.0-17.5) gm/dL Hct 37.9 L (39.0-53.0) % MCV 79.3 L (80.0-100.0) fL MCH 27.3 (25.0-35.0) pg MCHC 34.4 (31.0-37.0) g/dL RDW 12.4 (11.5-15.5) % Plt Count 136 L (150-450) k/uL MPV 8.3 Neutrophils % 74 % Lymphocytes % 17 % Monocytes % 5 % Eosinophils % 2 % Basophils % 0 % Neutrophils # 4.3 (1.3-7.7) k/uL Lymphocytes # 1.0 (1.0-4.8) k/uL Monocytes # 0.3 (0-1.0) k/uL Eosinophils # 0.1 (0-0.7) k/uL Basophils # 0.0 (0-0.2) k/uL Sodium 140 (137-145) mmol/L Potassium 4.1 (3.5-5.1) mmol/L Chloride 111 H (98-107) mmol/L Carbon Dioxide 25 (22-30) mmol/L Anion Gap 4 mmol/L BUN 10 (9-20) mg/dL Creatinine 0.51 L (0.66-1.25) mg/dL Est GFR (CKD-EPI)AfAm >90 (>60 ml/min/1.73 sqM) Est GFR (CKD-EPI)NonAf >90 (>60 ml/min/1.73 sqM) Glucose 121 H (74-99) mg/dL POC Glucose (mg/dL) (70-110) mg/dL POC Glu Electronic Maintenance Supervisor ID Calcium 9.2 (8.4-10.2) mg/dL Phosphorus (2.5-4.5) mg/dL Magnesium (1.6-2.3) mg/dL Total Bilirubin 0.7 (0.2-1.3) mg/dL AST 35 (17-59) U/L ALT 14 (4-49) U/L Alkaline Phosphatase 47 (38-126) U/L Creatine Kinase 592 H (55-170) U/L Total Protein 6.4 (6.3-8.2) g/dL Albumin 3.9 (3.5-5.0) g/dL Urine Color Urine Appearance (Clear) Urine pH (5.0-8.0) Ur Specific [place] (1.001-1.035) Urine Protein (Negative) Urine Glucose (UA) (Negative) Urine Ketones (Negative) Urine Blood (Negative) Urine Nitrite (Negative) Urine Bilirubin (Negative) Urine Urobilinogen (<2.0) mg/dL Ur Leukocyte Esterase (Negative) Urine Opiates Screen (NotDetected) Ur Oxycodone Screen (NotDetected) Urine Methadone Screen (NotDetected) Ur Barbiturates Screen (NotDetected) U Tricyclic Antidepress (NotDetected) Ur Phencyclidine Scrn (NotDetected) Ur Amphetamines Screen (NotDetected) U Methamphetamines Scrn (NotDetected) U Benzodiazepines Scrn (NotDetected) Urine Cocaine Screen (NotDetected) U Marijuana (THC) Screen (NotDetected) SARS-CoV-2 (PCR) Not Detected (Not Detectd) 03/21/24 03/21/24 03/21/24 Range/Units 02:15 05:06 05:06 WBC 7.1 (3.8-10.6) k/uL RBC 4.81 (4.30-5.90) m/uL Hgb 13.1 (13.0-17.5) gm/dL Hct 38.3 L (39.0-53.0) % MCV 79.7 L (80.0-100.0) fL MCH 27.3 (25.0-35.0) pg MCHC 34.2 (31.0-37.0) g/dL RDW 12.6 (11.5-15.5) % Plt Count 151 (150-450) k/uL MPV 8.3 Neutrophils % 72 % Lymphocytes % 18 % Monocytes % 8 % Eosinophils % 1 % Basophils % 0 % Neutrophils # 5.1 (1.3-7.7) k/uL Lymphocytes # 1.2 (1.0-4.8) k/uL Monocytes # 0.6 (0-1.0) k/uL Eosinophils # 0.1 (0-0.7) k/uL Basophils # 0.0 (0-0.2) k/uL Sodium 137 (137-145) mmol/L Potassium 3.8 (3.5-5.1) mmol/L Chloride 106 (98-107) mmol/L Carbon Dioxide 22 (22-30) mmol/L Anion Gap 9 mmol/L BUN 12 (9-20) mg/dL Creatinine 0.63 L (0.66-1.25) mg/dL Est GFR (CKD-EPI)AfAm >90 (>60 ml/min/1.73 sqM) Est GFR (CKD-EPI)NonAf >90 (>60 ml/min/1.73 sqM) Glucose 131 H (74-99) mg/dL POC Glucose (mg/dL) (70-110) mg/dL POC Glu Electronic Maintenance Supervisor ID Calcium 9.3 (8.4-10.2) mg/dL Phosphorus 3.9 (2.5-4.5) mg/dL Magnesium 1.7 (1.6-2.3) mg/dL Total Bilirubin 0.6 (0.2-1.3) mg/dL AST 63 H (17-59) U/L ALT 19 (4-49) U/L Alkaline Phosphatase 49 (38-126) U/L Creatine Kinase (55-170) U/L Total Protein 6.4 (6.3-8.2) g/dL Albumin 3.9 (3.5-5.0) g/dL Urine Color Yellow Urine Appearance Clear (Clear) Urine pH 6.0 (5.0-8.0) Ur Specific [place] 1.030 (1.001-1.035) Urine Protein Trace H (Negative) Urine Glucose (UA) Trace H (Negative) Urine Ketones 2+ H (Negative) Urine Blood Negative (Negative) Urine Nitrite Negative (Negative) Urine Bilirubin Negative (Negative) Urine Urobilinogen 2.0 (<2.0) mg/dL Ur Leukocyte Esterase Negative (Negative) Urine Opiates Screen Not Detected (NotDetected) Ur Oxycodone Screen Not Detected (NotDetected) Urine Methadone Screen Not Detected (NotDetected) Ur Barbiturates Screen Not Detected (NotDetected) U Tricyclic Antidepress Not Detected (NotDetected) Ur Phencyclidine Scrn Not Detected (NotDetected) Ur Amphetamines Screen Not Detected (NotDetected) U Methamphetamines Scrn Not Detected (NotDetected) U Benzodiazepines Scrn Not Detected (NotDetected) Urine Cocaine Screen Not Detected (NotDetected) U Marijuana (THC) Screen Not Detected (NotDetected) SARS-CoV-2 (PCR) (Not Detectd) 03/21/24 03/21/24 Range/Units 05:06 06:08 WBC (3.8-10.6) k/uL RBC (4.30-5.90) m/uL Hgb (13.0-17.5) gm/dL Hct (39.0-53.0) % MCV (80.0-100.0) fL MCH (25.0-35.0) pg MCHC (31.0-37.0) g/dL RDW (11.5-15.5) % Plt Count (150-450) k/uL MPV Neutrophils % % Lymphocytes % % Monocytes % % Eosinophils % % Basophils % % Neutrophils # (1.3-7.7) k/uL Lymphocytes # (1.0-4.8) k/uL Monocytes # (0-1.0) k/uL Eosinophils # (0-0.7) k/uL Basophils # (0-0.2) k/uL Sodium (137-145) mmol/L Potassium (3.5-5.1) mmol/L Chloride (98-107) mmol/L Carbon Dioxide (22-30) mmol/L Anion Gap mmol/L BUN (9-20) mg/dL Creatinine (0.66-1.25) mg/dL Est GFR (CKD-EPI)AfAm (>60 ml/min/1.73 sqM) Est GFR (CKD-EPI)NonAf (>60 ml/min/1.73 sqM) Glucose (74-99) mg/dL POC Glucose (mg/dL) 138 H (70-110) mg/dL POC Glu Electronic Maintenance Supervisor ID Amy Crowell Calcium (8.4-10.2) mg/dL Phosphorus (2.5-4.5) mg/dL Magnesium (1.6-2.3) mg/dL Total Bilirubin (0.2-1.3) mg/dL AST (17-59) U/L ALT (4-49) U/L Alkaline Phosphatase (38-126) U/L Creatine Kinase 3890 H* (55-170) U/L Total Protein (6.3-8.2) g/dL Albumin (3.5-5.0) g/dL Urine Color Urine Appearance (Clear) Urine pH (5.0-8.0) Ur Specific [place] (1.001-1.035) Urine Protein (Negative) Urine Glucose (UA) (Negative) Urine Ketones (Negative) Urine Blood (Negative) Urine Nitrite (Negative) Urine Bilirubin (Negative) Urine Urobilinogen (<2.0) mg/dL Ur Leukocyte Esterase (Negative) Urine Opiates Screen (NotDetected) Ur Oxycodone Screen (NotDetected) Urine Methadone Screen (NotDetected) Ur Barbiturates Screen (NotDetected) U Tricyclic Antidepress (NotDetected) Ur Phencyclidine Scrn (NotDetected) Ur Amphetamines Screen (NotDetected) U Methamphetamines Scrn (NotDetected) U Benzodiazepines Scrn (NotDetected) Urine Cocaine Screen (NotDetected) U Marijuana (THC) Screen (NotDetected) SARS-CoV-2 (PCR) (Not Detectd) Disposition Is patient prescribed a controlled substance at d/c from ED?: No Time of Disposition: 10:10 <Corwin Tejada - Last Filed: 03/20/24 10:09> Is patient prescribed a controlled substance at d/c from ED?: No <Brett Gonzalez - Last Filed: 03/20/24 21:58> <Raghu Joseph - Last Filed: 04/08/24 13:36> Clinical Impression: Acute psychosis, Unspecified psychosis, Catatonia, Rhabdomyolysis Disposition: ADMITTED IP TO THIS HOSP Condition: Fair
[2024-03-20 06:51] LABS: Basophils % (A) 0 %; Eosinophils # (A) 0.1 k/uL (0-0.7); Eosinophils % (A) 2 %; HCT 37.9 % (39.0-53.0); HGB 13.1 gm/dL (13.0-17.5); Lymphocytes % (A) 17 %; MCH 27.3 pg (25.0-35.0); MCHC 34.4 g/dL (31.0-37.0); MCV 79.3 fL (80.0-100.0); Mean Platelet Volume 8.3; Monocytes # (A) 0.3 k/uL (0-1.0); Monocytes % (A) 5 %; Neutrophils # (A) 4.3 k/uL (1.3-7.7); Neutrophils % (A) 74 %; Platelet Count 136 k/uL (150-450); RBC 4.78 m/uL (4.30-5.90); RDW 12.4 % (11.5-15.5); WBC 5.8 k/uL (3.8-10.6)
[2024-03-20 07:11] LABS: AST 35 U/L (17-59); African American GFR (CKD) >90 (>60 ml/min/1.73 sqM); Albumin 3.9 g/dL (3.5-5.0); Anion Gap 4 mmol/L; Blood Urea Nitrogen 10 mg/dL (9-20); Calcium 9.2 mg/dL (8.4-10.2); Carbon Dioxide 25 mmol/L (22-30); Chloride 111 mmol/L (98-107); Creatine Kinase 592 U/L (55-170); Glucose 121 mg/dL (74-99); Non-African American GFR(CKD) >90 (>60 ml/min/1.73 sqM); Sodium 140 mmol/L (137-145); Total Bilirubin 0.7 mg/dL (0.2-1.3); Total Protein 6.4 g/dL (6.3-8.2)
[2024-03-20 07:16] LABS: Potassium 4.1 mmol/L (3.5-5.1)
[2024-03-20 07:17] LABS: ALT 14 U/L (4-49); Alkaline Phosphatase 47 U/L (38-126)
[2024-03-20] MEDS: cloNIDine HCL 0.1 MG TAB PO STA (16:09)
[2024-03-20] MEDS ORDERED: NALOXONE 0.4 MG/ML 1 ML VIAL IV PRN (21:51)
[2024-03-20] MEDS ORDERED: ONDANSETRON 4 MG/2 ML VIAL IVP PRN (21:51)
[2024-03-20] MEDS: cloNIDine HCL 0.1 MG TAB PO SCH (23:53)
[2024-03-21 02:43] LABS: Appearance,Urine Clear (Clear); Bilirubin,Urine Negative (Negative); Blood,Urine Negative (Negative); Color,Urine Yellow; Glucose,Urine (UA) Trace (Negative); Ketones,Urine 2+ (Negative); Leukocyte Esterase,Urine Negative (Negative); Nitrite,Urine Negative (Negative); Protein,Urine Trace (Negative)
[2024-03-21 02:55] LABS: Amphetamine Screen,Urine Not Detected (NotDetected); Barbiturate Screen,Urine Not Detected (NotDetected); Benzodiazepines Screen,Urine Not Detected (NotDetected); Cocaine Screen,Urine Not Detected (NotDetected); Methadone Screen, Urine Not Detected (NotDetected); Opiate Screen,Urine Not Detected (NotDetected); Oxycodone Screen, Urine Not Detected (NotDetected); Phencyclidine Screen,Urine Not Detected (NotDetected); Tricyclic Antidepressant,Urine Not Detected (NotDetected); Urn Cannabinoid Scrn Not Detected (NotDetected)
[2024-03-21 05:33] LABS: Basophils % (A) 0 %; Eosinophils # (A) 0.1 k/uL (0-0.7); Eosinophils % (A) 1 %; HCT 38.3 % (39.0-53.0); HGB 13.1 gm/dL (13.0-17.5); Lymphocytes # (A) 1.2 k/uL (1.0-4.8); Lymphocytes % (A) 18 %; MCH 27.3 pg (25.0-35.0); MCHC 34.2 g/dL (31.0-37.0); MCV 79.7 fL (80.0-100.0); Mean Platelet Volume 8.3; Monocytes # (A) 0.6 k/uL (0-1.0); Monocytes % (A) 8 %; Neutrophils # (A) 5.1 k/uL (1.3-7.7); Neutrophils % (A) 72 %; Platelet Count 151 k/uL (150-450); RBC 4.81 m/uL (4.30-5.90); RDW 12.6 % (11.5-15.5); WBC 7.1 k/uL (3.8-10.6)
[2024-03-21 05:52] LABS: ALT 19 U/L (4-49); AST 63 U/L (17-59); African American GFR (CKD) >90 (>60 ml/min/1.73 sqM); Albumin 3.9 g/dL (3.5-5.0); Alkaline Phosphatase 49 U/L (38-126); Anion Gap 9 mmol/L; Blood Urea Nitrogen 12 mg/dL (9-20); Calcium 9.3 mg/dL (8.4-10.2); Carbon Dioxide 22 mmol/L (22-30); Chloride 106 mmol/L (98-107); Glucose 131 mg/dL (74-99); Magnesium 1.7 mg/dL (1.6-2.3); Non-African American GFR(CKD) >90 (>60 ml/min/1.73 sqM); Phosphorus 3.9 mg/dL (2.5-4.5); Potassium 3.8 mmol/L (3.5-5.1); Sodium 137 mmol/L (137-145); Total Bilirubin 0.6 mg/dL (0.2-1.3); Total Protein 6.4 g/dL (6.3-8.2)
[2024-03-21 06:09] LABS: Glucose,Whole Blood 138 mg/dL (70-110)
[2024-03-21] MEDS: PANTOPRAZOLE 40 MG/10 ML VIAL IV SCH (08:50)
[2024-03-21] MEDS ORDERED: DEXTROSE 50% SYRINGE 50 ML IVP PRN ×2 (09:59)
[2024-03-21 11:06] LABS: Glucose,Whole Blood 213 mg/dL (70-110)
[2024-03-21] MEDS: LACTATED RINGERS 1,000 ML IV SCH (11:32)
[2024-03-21] MEDS: ENOXAPARIN 40 MG/0.4 ML SYRINGE SQ SCH (11:32)
[2024-03-21] MEDS: PIOGLITAZONE 30 MG TAB PO SCH (11:32)
[2024-03-21] MEDS: INSULIN DETEMIR (LEVEMIR) 100 UNIT/ML SYR SQ SCH (11:32)
[2024-03-21] MEDS: FUROSEMIDE 20 MG TAB PO SCH (11:32)
[2024-03-21] MEDS: TAMSULOSIN 0.4 MG CAP.ER.24H PO SCH (11:32)
[2024-03-21] MEDS: INSULIN ASPART (NovoLOG) 100 UNIT/ML VIAL SQ SCH (12:51)
--- NOTE | 2024-03-21 15:21 | P.HPIM ---
History of Present Illness H&P Date: 03/21/24 Chief Complaint: Elevated CPK These are the notes from our ER physician: This patient is a 53-year-old man who reportedly has history of mood disorder, schizophrenia, and previous catatonic episode. The patient arrives here as transfer from [facility]. He was reportedly sent there from what sounds like a rescue mission. It was reported me that the patient's brother had dropped the patient there and that after he was evaluated he was sent to the hospital. When I interviewed the patient, he states that he is feeling well. He is denying complaints when asked of pain, dyspnea, nausea. The patient paperwork from the other hospital states that they wanted him admitted to psychiatry as he has had previous similar episodes to this when his underlying psychiatric disease flares up. The patient reportedly had fallen a couple of days ago and then had been lying on the floor for an unknown period of time. At the other facility his CPK was found to be 1070. His workup included head CT reported to be negative for acute intracranial hemorrhage or fracture. The remainder of the patient's labs include normal CBC, chemistry is remarkable only for blood glucose of 160. Alcohol Tylenol and salicylates were negative. TSH was normal. Urine drug screen was negative. Patient himself does not give much of a history. He did eat some breakfast this morning. Has a sitter. Getting IV fluids for some rhabdomyolysis. Limited answering questions. At her baseline patient is independent. With ADLs. Psychiatry was sent from the ER regarding home medications Review of systems: GEN.: Tired EYES: None HEENT: None NECK: None RESPIRATORY: None CARDIOVASCULAR: None GASTROINTESTINAL: None GENITOURINARY: None MUSCULOSKELETAL: None LYMPHATICS: None HEMATOLOGICAL: None PSYCHIATRY: Barely answering questions NEUROLOGICAL: None Social history: Patient currently staying at [facility]. Homeless halfway. At the baseline independent with ADLs Physical examination: VITAL SIGNS: 97.8, 89, 18, 127 x 80, 96% room air GENERAL: BMI 24.4, laying in bed, lethargic. EYES: Pupils equal. Conjunctiva finn l. HEENT: External appearance of nose and ears normal, oral cavity grossly normal. NECK: JVD not raised; masses not palpable. HEART: First and second heart sounds are normal; no edema. LUNGS: Respiratory rate normal; clear to auscultation. ABDOMEN: Soft, nontender, liver spleen not palpable, no masses palpable. PSYCH: Speaks only and monotone. Very low volume. Appears rather withdrawn l. MUSCULOSKELETAL:No Clubbing/cyanosis;muscles-grossly intact NEUROLOGICAL: [Cranial nerves grossly intact; no facial asymmetry, does not really move his limbs. But no increase tone. LYMPHATICS: No lymph nodes palpable in the axilla and neck. INVESTIGATIONS, reviewed in the clinical context: Mar 21 2024: White count 7.1 hemoglobin 13.1 platelets 151 sodium 137 potassium 3.8 creatinine 0.63 CPK 3890 March 20: CPK 592 UA: Ketones 2+ Urine drug screen: Negative Assessment plan: -Patient appears to be catatonic. Has multiple medication psychiatry medications. Psychiatry was consulted from the ER to review the same. Await input Has a sitter -Acute rhabdomyolysis, secondary to fall Lactated Ringer's 150 cc an hour. Follow CPK add Lasix -Hyperlipidemia Lipitor-hold for now -Essential hypertension Resume lisinopril. [Blood pressure was higher when came in possibly from pain discomfort.] -Diabetes mellitus type 2, chronically on insulin Resume the same. Follow Accu-Cheks with sliding scale -BPH Flomax -Bipolar schizoaffective disorder Psychiatry consulted. Will review medications and resume -Full code Given the complexity and severity of patient's condition expect the patient to be in the hospital at least for 2 overnights Past Medical History Past Medical History: Diabetes Mellitus, Hyperlipidemia, Hypertension Additional Past Medical History / Comment(s): bipolar, schizophrenia. History of Any Multi-Drug Resistant Organisms: None Reported Additional Past Surgical History / Comment(s): right shoulder Past Anesthesia/Blood Transfusion Reactions: No Reported Reaction Past Psychological History: No Psychological Hx Reported, Bipolar, Depression, Schizoaffective Disorder Smoking Status: Never smoker Past Alcohol Use History: None Reported Past Drug Use History: None Reported - Past Family History Father Family Medical History: Hypertension Medications and Allergies Home Medications Medication Instructions Recorded Confirmed Type Atorvastatin [Lipitor] 40 mg PO HS 03/20/24 03/20/24 History Benztropine Mesylate [Cogentin] 1 mg PO BID 03/20/24 03/20/24 History Divalproex ER [Depakote ER] 1,000 mg PO HS 03/20/24 03/20/24 History Divalproex ER [Depakote ER] 250 mg PO HS 03/20/24 03/20/24 History INSULIN LISPRO (HumaLOG) [humaLOG] See Protocol SQ ACHS 03/20/24 03/20/24 History Insulin Glargine Max U-300 20 units SQ DAILY 03/20/24 03/20/24 History Pioglitazone [Actos] 30 mg PO DAILY 03/20/24 03/20/24 History Sertraline [Zoloft] 25 mg PO DAILY 03/20/24 03/20/24 History Tamsulosin HCl [Flomax] 0.4 mg PO DAILY 03/20/24 03/20/24 History busPIRone HCl [Buspar] 10 mg PO BID 03/20/24 03/20/24 History fluPHENAZine HCl 10 mg PO HS 03/20/24 03/20/24 History fluPHENAZine decanoate [Prolixin 50 mg IM [id number] 03/20/24 03/20/24 History Decanoate] lisinopriL 2.5 mg PO DAILY 03/20/24 03/20/24 History metFORMIN HCL 1,000 mg PO BID 03/20/24 03/20/24 History traZODone HCL [Desyrel] 50 mg PO DIRECTED 03/20/24 03/20/24 History Allergies Allergy/AdvReac Type Severity Reaction Status Date / Time cephalexin [From Keflex] Allergy Rash/Hives Verified 03/20/24 08:10 Physical Exam Vitals: Vital Signs Temp Pulse Pulse Resp BP BP Pulse Ox 03/21/24 07:29 97.8 F 89 18 127/80 96 03/21/24 01:29 98.2 F 94 16 118/69 94 L 03/20/24 23:45 104 H 16 140/80 97 03/20/24 20:02 110 H 18 151/102 97 03/20/24 19:30 106 H 18 160/98 96 03/20/24 18:48 99 18 147/87 94 L 03/20/24 16:52 112 H 18 166/95 95 03/20/24 15:15 108 H 18 171/106 96 03/20/24 13:47 96 16 143/87 96 03/20/24 12:42 106 H 16 159/103 95 03/20/24 10:22 90 16 150/90 96 Intake and Output 03/20/24 03/21/24 03/21/24 22:59 06:59 14:59 Output Total 1999 Balance -1999 Output: Urine 1999 Straight 1300 Other: Weight 81.647 kg Results CBC & Chem 7: 03/21/24 05:06 03/21/24 05:06 Labs: Abnormal Lab Results - Last 24 Hours (Table) 03/21/24 03/21/24 03/21/24 Range/Units 02:15 05:06 05:06 Hct 38.3 L (39.0-53.0) % MCV 79.7 L (80.0-100.0) fL Creatinine 0.63 L (0.66-1.25) mg/dL Glucose 131 H (74-99) mg/dL POC Glucose (mg/dL) (70-110) mg/dL AST 63 H (17-59) U/L Creatine Kinase (55-170) U/L Urine Protein Trace H (Negative) Urine Glucose (UA) Trace H (Negative) Urine Ketones 2+ H (Negative) 03/21/24 03/21/24 Range/Units 05:06 06:08 Hct (39.0-53.0) % MCV (80.0-100.0) fL Creatinine (0.66-1.25) mg/dL Glucose (74-99) mg/dL POC Glucose (mg/dL) 138 H (70-110) mg/dL AST (17-59) U/L Creatine Kinase 3890 H* (55-170) U/L Urine Protein (Negative) Urine Glucose (UA) (Negative) Urine Ketones (Negative) Thrombosis Risk Factor Assmnt - Choose All That Apply Any of the Below Risk Factors Present?: Yes Each Factor Represents 1 point: Age 41-60 years Thrombosis Risk Factor Assessment Total Risk Factor Score: 1 Thrombosis Risk Factor Assessment Level: Low Risk
[2024-03-21] MEDS ORDERED: traZODone HCL 50 MG TAB PO PRN (16:04)
[2024-03-21 16:07] LABS: Glucose,Whole Blood 199 mg/dL (70-110)
[2024-03-21] MEDS ORDERED: LORazepam 1 MG TAB PO PRN (16:07)
[2024-03-21 20:48] LABS: Glucose,Whole Blood 226 mg/dL (70-110)
[2024-03-21] MEDS: clonazePAM 0.5 MG TAB PO SCH (20:58)
--- NOTE | 2024-03-21 21:28 | P.CN ---
Psychiatric Consult - . Consult date: 03/21/24 Consult:: 03/21/24 21:28 Identifying Data: The patient is a 53 years old, , white male, who is currently living in [facility] in [place], [place] Chief Complaint: I am hearing voices to kill myself HPI: Patient presented to the hospital on 03/20/2024 transferred from [place] with symptoms of psychosis and catatonia and h/o fall. At [place] his CPK was 1070. He had a CT scan, which was normal. After initial work-up, the patient was transferred to medical floor with diagnosis of Rhabdomyolysis. His recent CK was 3890. The patient has sustained no major injuries. He has been noted to be catatonic. He has been consulted for Catatonia and psychosis. During this evaluation, the patient was alert and attentive and provided history. As per patient, he started hearing voices prior to fall. He noted that he was also getting depressed, however the depression started after the voices. He stated that the voices are derogatory in nature and tell him to kill himself. They also sat that he is no good, is guilty and worthless. He also reported being paranoid and suspicious. He noted his depressive symptomatology consists of sadness, loss of interest, social withdrawal, slowed thinking, lethargy, loss of energy, malaise, worth lessness. He denied suicidal thoughts. He stated that he never entertained killing himself. He has no h/o suicidal or homicidal behavior. He noted that in the past, he has been diagnosed with Bipolar disorder and Schizophrenia. He has had 4-5 admission since the beginning of his illness. His last 3-4 admissions were to this hospital. He was here a year ago. The pat kaela goes to [facility] for out-pt treatment. He last saw Dr. Bahena 2 months ago. His renal case manager name is Jai. His home medications are Trazodone 50 mg po hs prn. Buspar 10 mg po bid, Zoloft 25 mg po qd, Prolixin 10 mg hs, Prolixin Deaconate 50 mg q14 days, Depakote 250 mg hs and Cogentin 1 mg po bid. It is not certain what medications he has been taking. He noted that his case manger visits him. As mentioned, he saw Dr. Bahena 2 months ago. He is currently staying in [facility] for past 6 months. He had an apartment before that. He noted getting SSD. Past Medical History: DM Alcohol and drug H/O: the patient denied. No reported substance use history. MSE: Alert and attentive Orientation X3. Pleasant and cooperative. Psychomotor: markedly reduced. No waxy flexibility noted. No rigidity noted. He does appear stiff and his movements are slow. Speech: low tone, quality, and underproductive. The patient responded to all the questions with one or two sentences. He did not initiate conversation. Mood: Depressed. Affect: Sad, withdrawn and blunted.: SI or HI: None Thought content: Paranoid ideations. Thought process: hears voices telling him to kill himself. Perceptual disturbance: Normal Cognition: Intact Judgement and Insight: Poor Diagnosis: Schizoaffective Disorder, depressed type Plan: The patient needs in-patient psychiatric admission. Transfer patient to psychiatric in-patient unit after medical stabilization. Medication recommendations: Clonazepam 0.5 mg po bid, Trazodone 50 mg prn for insomnia, Zoloft 25 mg po qam after breakfast. Ativan 1 mg po prn for severe anxiety/agitation. Hold antipsychotics and Cogentin till CPK comes down to normal. rn case manager hospice to contact and find out when he got his last Prolixin Deaconate last. Obtain consent to speak to son and brother. The patients brothers phone no. The patient does not meet in-patient criteria for psychiatric admission. Monitor MS and side effects of medications and adjust the psychotropic medication or change as needed. Provide supportive psychotherapy. Will sign off the case. Richie consult if MS changes Austen Raza MD Psychiatry
[2024-03-21] MEDS ORDERED: LORazepam 0.5 MG TAB PO PRN (22:49)
[2024-03-22] MEDS: PANTOPRAZOLE 40 MG TABLET PO SCH (05:31)
[2024-03-22 05:51] LABS: Glucose,Whole Blood 158 mg/dL (70-110)
[2024-03-22] MEDS ORDERED: SERTRALINE 25 MG TAB PO SCH (09:00)
[2024-03-22 11:27] LABS: Glucose,Whole Blood 186 mg/dL (70-110)
--- NOTE | 2024-03-22 15:57 | P.PN ---
Progress Note - Text Progress Note Date: 03/22/24 Chief Complaint: Elevated CPK These are the notes from our ER physician: This patient is a 53-year-old man who reportedly has history of mood disorder, schizophrenia, and previous catatonic episode. The patient arrives here as transfer from [facility]. He was reportedly sent there from what sounds like a rescue mission. It was reported me that the patient's brother had dropped the patient there and that after he was evaluated he was sent to the hospital. When I interviewed the patient, he states that he is feeling well. He is denying complaints when asked of pain, dyspnea, nausea. The patient paperwork from the other hospital states that they wanted him admitted to psychiatry as he has had previous similar episodes to this when his underlying psychiatric disease flares up. The patient reportedly had fallen a couple of days ago and then had been lying on the floor for an unknown period of time. At the other facility his CPK was found to be 1070. His workup included head CT reported to be negative for acute intracranial hemorrhage or fracture. The remainder of the patient's labs include normal CBC, chemistry is remarkable only for blood glucose of 160. Alcohol Tylenol and salicylates were negative. TSH was normal. Urine drug screen was negative. Patient himself does not give much of a history. He did eat some breakfast this morning. Has a sitter. Getting IV fluids for some rhabdomyolysis. Limited ans wering questions. At her baseline patient is independent. With ADLs. Psychiatry was sent from the ER regarding home medications March 22: Patient mated with acute rhabdomyolysis. Some worsening of CPK. Getting IV fluids. Has a sitter at the bedside. Did eat his breakfast. CPK yesterday it got up to 4647. This morning down to 2341. Will watch another 24 hours. Seen by psychiatry. Diagnosis of schizoaffective disorder. Patient is slow to move his limbs. Answering in a monotone. Active Medications Dextrose/Water (Dextrose 50% Syringe 50 Ml) 25 ml IVP PER PROTOCOL PRN; Protocol PRN Reason: Hypoglycemia Dextrose/Water (Dextrose 50% Syringe 50 Ml) 50 ml IVP PER PROTOCOL PRN; Protocol PRN Reason: Hypoglycemia Enoxaparin Sodium (Enoxaparin 40 Mg/0.4 Ml Syringe) 40 mg SQ DAILY JANUARY Last Admin: 05/31/24 09:31 Dose: 40 mg Furosemide (Furosemide 20 Mg Tab) 20 mg PO BID@0900,1600 [facility] Last Admin: 03/22/24 09:31 Dose: 20 mg Lactated Ringer's (Lactated Ringers) 1,000 mls @ 150 mls/hr IV .Q6H40M [facility] Last Admin: 03/22/24 12:38 Dose: 150 mls/hr Insulin Aspart (Insulin Aspart (Novolog) 100 Unit/Ml Vial) 0 unit SQ ACHS [facility]; Protocol Last Admin: 03/22/24 12:37 Dose: 2 unit Insulin Detemir (Insulin Detemir (Levemir) 100 Unit/Ml Syr) 15 unit SQ DAILY@0700 [facility] Last Admin: 03/22/24 06:50 Dose: 15 unit Lisinopril (Lisinopril 2.5 Mg Tab) 2.5 mg PO DAILY [facility] Last Admin: 03/22/24 09:31 Dose: 2.5 mg Lorazepam (Lorazepam 0.5 Mg Tab) 0.5 mg PO Q6H PRN PRN Reason: Agitation Naloxone HCl (Naloxone 0.4 Mg/Ml 1 Ml Vial) 0.2 mg IV Q2M PRN PRN Reason: Opioid Reversal Ondansetron HCl (Ondansetron 4 Mg/2 Ml Vial) 4 mg IVP Q8HR PRN PRN Reason: Nausea And Vomiting Pantoprazole Sodium (Pantoprazole 40 Mg Tablet) 40 mg PO AC-BRKFST [facility] Last Admin: 03/22/24 05:31 Dose: 40 mg Pioglitazone HCl (Pioglitazone 30 Mg Tab) 30 mg PO DAILY [facility] Last Admin: 03/22/24 09:31 Dose: 30 mg Tamsulosin HCl (Tamsulosin 0.4 Mg Cap.Er.24h) 0.4 mg PO DAILY [facility] Last Admin: 03/22/24 09:31 Dose: 0.4 mg Social history: Patient currently staying at [facility]. Homeless retirement. At the baseline independent with ADLs Physical examination: VITAL SIGNS: 98.1, 89, 19, 130 x 64, 95% room air GENERAL: BMI 24.4, laying in bed, lethargic. EYES: Pupils equal. Conjunctiva finn l. HEENT: External appearance of nose and ears normal, oral cavity grossly normal. NECK: JVD not raised; masses not palpable. HEART: First and second heart sounds are normal; no edema. LUNGS: Respiratory rate normal; clear to auscultation. ABDOMEN: Soft, nontender, liver spleen not palpable, no masses palpable. PSYCH: Speaks slowly and monotone. Very low volume. MUSCULOSKELETAL:No Clubbing/cyanosis;muscles-grossly intact NEUROLOGICAL: [Cranial nerves grossly intact; no facial asymmetry, lifting his arms and legs a little bit only. INVESTIGATIONS, reviewed in the clinical context: March 22: CPK 2341 Mar 21 2024: White count 7.1 hemoglobin 13.1 platelets 151 sodium 137 potassium 3.8 creatinine 0.63 CPK 3890 March 20: CPK 592 UA: Ketones 2+ Urine drug screen: Negative Assessment plan: -Schizoaffective disorder Seen by psychiatry. Has been accepted at inpatient psychiatry. Has a sitter -Acute rhabdomyolysis, secondary to fall: Slow improvement Lactated Ringer's 150 cc an hour. Follow CPK .Lasix -Hyperlipidemia Lipitor-hold for now -Essential hypertension lisinopril. -Diabetes mellitus type 2, chronically on insulin Resume the same. Follow Accu-Cheks with sliding scale -BPH Flomax -Bipolar schizoaffective disorder Psychiatry following -Full code Follow with psychiatry. IV fluids. Repeat CPK tomorrow. When stable can be transferred to 3 [address]. Past Medical History Past Medical History: Diabetes Mellitus, Hyperlipidemia, Hypertension Additional Past Medical History / Comment(s): bipolar, schizophrenia. History of Any Multi-Drug Resistant Organisms: None Reported Additional Past Surgical History / Comment(s): right shoulder Past Anesthesia/Blood Transfusion Reactions: No Reported Reaction Past Psychological History: No Psychological Hx Reported, Bipolar, Depression, Schizoaffective Disorder Smoking Status: Never smoker Past Alcohol Use History: None Reported Past Drug Use History: None Reported
[2024-03-22 16:48] LABS: Glucose,Whole Blood 183 mg/dL (70-110)
[2024-03-22 20:35] LABS: Glucose,Whole Blood 180 mg/dL (70-110)
[2024-03-23 06:08] LABS: Glucose,Whole Blood 180 mg/dL (70-110)
[2024-03-23 08:01] LABS: African American GFR (CKD) >90 (>60 ml/min/1.73 sqM); Anion Gap 2 mmol/L; Blood Urea Nitrogen 6 mg/dL (9-20); Calcium 9.4 mg/dL (8.4-10.2); Carbon Dioxide 30 mmol/L (22-30); Chloride 106 mmol/L (98-107); Creatine Kinase 980 U/L (55-170); Glucose 170 mg/dL (74-99); Non-African American GFR(CKD) >90 (>60 ml/min/1.73 sqM); Potassium 3.8 mmol/L (3.5-5.1); Sodium 138 mmol/L (137-145)
[2024-03-23 11:58] LABS: Glucose,Whole Blood 206 mg/dL (70-110)
[2024-03-23] MEDS: SODIUM CHLORIDE 0.9% 500 ML 500 ML IV ONE (12:17)
[2024-03-23 16:46] LABS: Glucose,Whole Blood 174 mg/dL (70-110)
[2024-03-23] MEDS: ACETAMINOPHEN TAB 325 MG TAB PO PRN (17:16)
[2024-03-23] MEDS: ZINC OXIDE PASTE (Z-GUARD) 1 APPLIC TOPICAL SCH (17:48)
[2024-03-23 19:48] LABS: Glucose,Whole Blood 194 mg/dL (70-110)
[2024-03-24 06:09] LABS: Glucose,Whole Blood 197 mg/dL (70-110)
--- NOTE | 2024-03-24 06:41 | P.PN ---
Subjective Progress Note Date: 03/23/24 Chief Complaint: Elevated CPK These are the notes from our ER physician: This patient is a 53-year-old man who reportedly has history of mood disorder, schizophrenia, and previous catatonic episode. The patient arrives here as transfer from [facility]. He was reportedly sent there from what sounds like a rescue mission. It was reported me that the patient's brother had dropped the patient there and that after he was evaluated he was sent to the hospital. When I interviewed the patient, he states that he is feeling well. He is denying complaints when asked of pain, dyspnea, nausea. The patient paperwork from the other hospital states that they wanted him admitted to psychiatry as he has had previous similar episodes to this when his underlying psychiatric disease flares up. The patient reportedly had fallen a couple of days ago and then had been lying on the floor for an unknown period of time. At the other facility his CPK was found to be 1070. His workup included head CT reported to be negative for acute intracranial hemorrhage or fracture. The remainder of the patient's labs include normal CBC, chemistry is remarkable only for blood glucose of 160. Alcohol Tylenol and salicylates were negative. TSH was normal. Urine drug screen was negative. Patient himself does not give much of a history. He did eat some breakfast this morning. Has a sitter. Getting IV fluids for some rhabdomyolysis. Limited answering questions. At her baseline patient is independent. With ADLs. Psychiatry was sent from the ER regarding home medications March 22: Patient mated with acute rhabdomyolysis. Some worsening of CPK. Getting IV fluids. Has a sitter at the bedside. Did eat his breakfast. CPK yesterday it got up to 4647. This morning down to 2341. Will watch another 24 hours. Seen by psychiatry. Diagnosis of schizoaffective disorder. Patient is slow to move his limbs. Answering in a monotone. 03/23/2024 Patient is seen and evaluated in follow-up today continues with sitter at the bedside for suicidal ideation. Patient evaluated by psych recommending inpat ient psych unit transfer once medically stable. Patient is continued on IV hydration for elevated CK with concerns of acute rhabdomyolysis. Patient continues to report inability to ambulate and will have PT/OT therapy evaluate the patient. CK levels trending down. Per sitter at the bedside patient is eating. Patient is afebrile with no reported chest pain or shortness of breath. Denies any nausea or vomiting and patient also continues with Baltazar catheter at this time. Review of systems: Unable to completely assess as patient is speaking in one- word sentences and slow to respond Social history: Patient currently staying at [facility]. Homeless group home. At the baseline independent with ADLs Physical examination: GENERAL: This is a 53-year-old male who is awake, alert and oriented x 1-2, minimally conversational speaking in one-word phrases although answering questi ons appropriately EYES: Pupils equal. Conjunctiva normal. HEENT: External appearance of nose and ears normal, oral cavity grossly normal. NECK: JVD not raised; masses not palpable. HEART: S1, S2 are muffled LUNGS: Respiratory rate normal; clear to auscultation with no wheezing or rhonchi noted. ABDOMEN: Soft, nontender, normal bowel sounds noted, no masses palpable. PSYCH: Speaks slowly and monotone. Very low volume. MUSCULOSKELETAL:No Clubbing/cyanosis;muscles-grossly intact NEUROLOGICAL: [Cranial nerves grossly intact; no facial asymmetry, lifting his arms and legs a little bit only. Assessment plan: -Schizoaffective disorder, meets inpatient criteria for psych once medically stable -Acute rhabdomyolysis, secondary to fall with prolonged downtime: Improving -Hyperlipidemia, hold statin therapy for now -Essential hypertension -Diabetes mellitus type 2, chronically on insulin, continue with Accu-Cheks ACHS and adjust insulins as needed -BPH -Bipolar schizoaffective disorder -GI prophylaxis -DVT prophylaxis -Full code Plan: CPK levels have improved and just over 900, will decrease the fluids Patient with indwelling Baltazar catheter which was reportedly for retention, patient does have history of BPH and maintained on Flomax will attempt trial of void after PT/OT therapy evaluation Patient reports he cannot walk and was ambulatory living in a homeless group home prior to arrival. Will consult PT/OT therapy Psychiatry following and meets inpatient criteria once medically stable. Will follow-up with repeat labs and await PT/OT Continue monitoring Accu-Cheks before meals and at bedtime and adjust insulins accordingly Continue suicide sitter at the bedside The impression and plan of care has been dictated by Kanchan Munoz, Nurse Practitioner as directed. Dr. Becca MD I have performed a history and examination and MDM of this patient, discussed the same with the dictator, and agree with the dictator's assessment and plan as written ,documented as a scribe. Based on total visit time, I have performed more than 50% of the visit. Objective - Vital Signs Vital signs: Vital Signs Temp 97.9 F 03/23/24 07:45 Pulse 88 03/23/24 07:45 Resp 19 03/23/24 07:45 BP 134/85 03/23/24 07:45 Pulse Ox 93 L 03/23/24 07:45 FiO2 Intake & Output 03/22/24 03/23/24 03/23/24 18:59 06:59 18:59 Intake Total 10 Output Total 1999 800 Balance -1999 -790 Intake: IV 10 Invasive Line 1 10 Output: Urine 1999 800 Other: Voiding Method Indwelling Catheter Indwelling Catheter Indwelling Catheter - Labs CBC & Chem 7: 03/21/24 05:06 03/23/24 07:18 Labs: Abnormal Lab Results - Last 24 Hours (Table) 03/22/24 03/22/24 03/22/24 Range/Units 11:26 12:59 16:46 BUN (9-20) mg/dL Creatinine (0.66-1.25) mg/dL Glucose (74-99) mg/dL POC Glucose (mg/dL) 186 H 183 H (70-110) mg/dL Creatine Kinase 2341 H* (55-170) U/L 03/22/24 03/23/24 03/23/24 Range/Units 20:32 06:06 07:18 BUN 6 L (9-20) mg/dL Creatinine 0.52 L (0.66-1.25) mg/dL Glucose 170 H (74-99) mg/dL POC Glucose (mg/dL) 180 H 180 H (70-110) mg/dL Creatine Kinase 980 H (55-170) U/L
[2024-03-24 07:38] LABS: Basophils % (A) 0 %; Eosinophils # (A) 0.1 k/uL (0-0.7); Eosinophils % (A) 1 %; HCT 43.3 % (39.0-53.0); HGB 14.1 gm/dL (13.0-17.5); Lymphocytes # (A) 0.9 k/uL (1.0-4.8); Lymphocytes % (A) 12 %; MCH 26.7 pg (25.0-35.0); MCHC 32.4 g/dL (31.0-37.0); MCV 82.3 fL (80.0-100.0); Mean Platelet Volume 8.6; Monocytes # (A) 0.6 k/uL (0-1.0); Monocytes % (A) 8 %; Neutrophils # (A) 5.6 k/uL (1.3-7.7); Neutrophils % (A) 77 %; Platelet Count 154 k/uL (150-450); RBC 5.27 m/uL (4.30-5.90); RDW 12.6 % (11.5-15.5); WBC 7.3 k/uL (3.8-10.6)
[2024-03-24 07:57] LABS: ALT 20 U/L (4-49); African American GFR (CKD) >90 (>60 ml/min/1.73 sqM); Albumin 3.8 g/dL (3.5-5.0); Albumin/Globulin Ratio 1.5; Anion Gap 6 mmol/L; Blood Urea Nitrogen 8 mg/dL (9-20); Calcium 9.4 mg/dL (8.4-10.2); Carbon Dioxide 27 mmol/L (22-30); Chloride 104 mmol/L (98-107); Creatine Kinase 393 U/L (55-170); Globulin 2.6 g/dL; Glucose 188 mg/dL (74-99); Non-African American GFR(CKD) >90 (>60 ml/min/1.73 sqM); Sodium 137 mmol/L (137-145); Total Protein 6.4 g/dL (6.3-8.2)
[2024-03-24 07:58] LABS: AST 38 U/L (17-59); Alkaline Phosphatase 61 U/L (38-126); Magnesium 1.7 mg/dL (1.6-2.3); Potassium 4.3 mmol/L (3.5-5.1)
[2024-03-24 11:34] LABS: Glucose,Whole Blood 222 mg/dL (70-110)
--- NOTE | 2024-03-24 15:57 | P.DS ---
Providers Date of admission: 03/21/24 10:00 Attending physician: Herrera Murillo Consults: 03/20/24 21:51 Consult Physician Routine Consulting Provider: Austen Raza Reason/Comments: psychosis Do you want consulting provider notified?: Yes Primary care physician: Herrera Mclean [facility] Course: Final Diagnosis -Schizoaffective disorder, meets inpatient criteria for inpatient psych, medically cleared. -Acute rhabdomyolysis, secondary to fall with prolonged downtime: Improving -Hyperlipidemia, hold statin therapy for now can resume tomorrow 03/25/24 -Essential hypertension -Diabetes mellitus type 2, chronically on insulin, continue with Accu-Cheks ACHS and adjust insulins as needed -BPH -Bipolar schizoaffective disorder Discharge Disposition Patient is stable for discharge to inpatient mental health unit. Patient remains catatonic and requiring continued mental health evaluation and treatment. Medications per psychiatry on transfer and social work to confirm when patient has received his prolixin injection next. Follow up with PCP on discharge. Hospital Course This patient is a 53-year-old man who reportedly has history of mood disorder, schizophrenia, and previous catatonic episode. Patient had initially presented to [facility] from a homeless fpc where he has been residing. Patient has fallen a few days prior to admission was down for an unknown amt of time. He had elevated CPK of 1070. His workup included head CT reported to be negative for acute intracranial hemorrhage or fracture. The remainder of the patient's labs include normal CBC, chemistry is remarkable only for blood glucose of 160. Alcohol Tylenol and salicylates were negative. TSH was normal. Urine drug screen was negative. Patient was admitted for acute rhabdomyolysis and started on IV fluids. His CK levels have significantly improved. He has been independent at baseline and know has been unambulatory and essentially in a catatonic state. Patient himself does not give much of a history. Diagnosis of schizoaffective disorder. Patient is slow to move his limbs. Answering in a monotone initially and today not verbally answering questions only nodding yes or no. Patient has reported to the psychiatrist he was diagnosed with bipolar schizoaffective disorder has been living in an apartment previously, now hearing voices telling him to harm himself. He has been increasingly depressed. Unsure about compliance with medications. Patient is seen and evaluated in follow-up today continues with sitter at the bedside for suicidal ideation. Patient evaluated by psych recommending inpatient psych unit transfer once medically stable. Patient continues to report inability to ambulate and PT/OT was consulted for evaluation. Although lack of ambulation may be related to the catatonic state. CK levels trending down. Per sitter at the bedside patient is eating. Patient is afebrile with no reported chest pain or shortness of breath. Denies any nausea or vomiting and patient also continues with Baltazar catheter at this time for urinary retention. Was receiving lasix however with no reported history of heart failure and does not appear to be volume overloaded we will not recommend to continue lasix on transition to the mental health unit. psychiatry was recommending for social work to verify when this patient is due for his prolixin injection. He has been following with [facility]. Hemodynamically he is stable. Medically he is stable for discharge to inpatient mental health unit. Please see medication reconciliation for a list of current medications. Thank you for allowing us to participate in the care of this patient. The impression and plan of care has been dictated by Rosa Washington, Nurse Practitioner as directed. Dr. Becca MD I have performed a history and physical examination and medical decision making of this patient, discussed the same with the dictator, and agree with the dictators assessment and plan as written, documented as a scribe. Based on total visit time, I have performed more than 50% of this visit. Here Patient Condition at Discharge: Stable Plan - Discharge Summary New Discharge Prescriptions: New LORazepam [Ativan] 0.5 mg PO Q6H PRN tab PRN Reason: Agitation Pantoprazole [Protonix] 40 mg PO AC-BRKFST tab Acetaminophen Tab [Tylenol] 650 mg PO Q6HR PRN tab PRN Reason: Fever and/ or Mild Pain Continue lisinopriL 2.5 mg PO DAILY Pioglitazone [Actos] 30 mg PO DAILY Sertraline [Zoloft] 25 mg PO DAILY metFORMIN HCL 1,000 mg PO BID Insulin Glargine Max U-300 20 units SQ DAILY INSULIN LISPRO (HumaLOG) [humaLOG] See Protocol SQ ACHS Atorvastatin [Lipitor] 40 mg PO HS Tamsulosin HCl [Flomax] 0.4 mg PO DAILY Changed traZODone HCL [Desyrel] 50 mg PO HS PRN #0 PRN Reason: Insomnia No Action Divalproex ER [Depakote ER] 1,000 mg PO HS fluPHENAZine HCl 10 mg PO HS fluPHENAZine decanoate [Prolixin Decanoate] 50 mg IM [id number] busPIRone HCl [Buspar] 10 mg PO BID Divalproex ER [Depakote ER] 250 mg PO HS Benztropine Mesylate [Cogentin] 1 mg PO BID Discharge Medication List Atorvastatin [Lipitor] 40 mg PO HS 03/20/24 [History] Benztropine Mesylate [Cogentin] 1 mg PO BID 03/20/24 [History] Divalproex ER [Depakote ER] 1,000 mg PO HS 03/20/24 [History] Divalproex ER [Depakote ER] 250 mg PO HS 03/20/24 [History] INSULIN LISPRO (HumaLOG) [humaLOG] See Protocol SQ ACHS 03/20/24 [History] Insulin Glargine Max U-300 20 units SQ DAILY 03/20/24 [History] Pioglitazone [Actos] 30 mg PO DAILY 03/20/24 [History] Sertraline [Zoloft] 25 mg PO DAILY 03/20/24 [History] Tamsulosin HCl [Flomax] 0.4 mg PO DAILY 03/20/24 [History] busPIRone HCl [Buspar] 10 mg PO BID 03/20/24 [History] fluPHENAZine HCl 10 mg PO HS 03/20/24 [History] fluPHENAZine decanoate [Prolixin Decanoate] 50 mg IM [id number] 03/20/24 [History] lisinopriL 2.5 mg PO DAILY 03/20/24 [History] metFORMIN HCL 1,000 mg PO BID 03/20/24 [History] Acetaminophen Tab [Tylenol] 650 mg PO Q6HR PRN tab 03/24/24 [Rx] LORazepam [Ativan] 0.5 mg PO Q6H PRN tab 03/24/24 [Rx] Pantoprazole [Protonix] 40 mg PO AC-BRKFST tab 03/24/24 [Rx] traZODone HCL [Desyrel] 50 mg PO HS PRN #0 03/24/24 [Rx] Follow up Appointment(s)/Referral(s): Corwin Khan, MARY [Family Provider] - 1-2 days
[2024-03-24 16:33] LABS: Glucose,Whole Blood 199 mg/dL (70-110)
[2024-03-24] MEDS ORDERED: Magnesium Replacement Protocol 1 EACH MISC MISCELLANE PRN (19:53)
[2024-03-24 20:35] LABS: Glucose,Whole Blood 210 mg/dL (70-110)
[2024-03-24] MEDS: INSULIN DETEMIR (LEVEMIR) 100 UNIT/ML SYR SQ SCH (22:00)
[2024-03-24] MEDS: MAGNESIUM SULFATE-D5W PMX 1 GM in DEXTROSE/WATER 1 100ML.BAG IVPB ONE (22:01)
[2024-03-25 05:50] LABS: Glucose,Whole Blood 206 mg/dL (70-110)
[2024-03-25 08:59] LABS: Magnesium 2.1 mg/dL (1.5-2.4)
--- NOTE | 2024-03-25 10:14 | CDI ---
Documentation Clarification Form Date: 03/25/2024 From: Lena Ocampo Phone: [phone] Admit Date: 03/21/2024 10:00:00 AM Patient Name: Omi Fontenot Visit Number: [id number] Discharge Date: ATTENTION: The Clinical Documentation Specialists (CDI) and [facility] Coding Staff appreciate your assistance in clarifying documentation. Please respond to the clarification below the line at the bottom and electronically sign. The CDI & [facility] Coding staff will review the response and follow-up if needed. Please note: Queries are made part of the Legal Health Record. If you have any questions, please contact the author of this message via ITS. ALEX YapC: Rhabdomyolysis is documented in the H&P on 03/21 and in subsequent notes. Additional clarification regarding the type of rhabdomyolysis is requested. History/Risk Factors: 53 year old male with a history of mood disorder, schizophrenia, and previous catatonic episode who presented a few days after a fall, and was lying on the floor for unknown period of time Clinical Indicators: 03/21 H&P, Assessment plan: "Acute rhabdomyolysis, secondary to fall." 03/23 IM PN, Assessment plan: "Acute rhabdomyolysis, secondary to fall with prolonged downtime: Improving" 03/20-03/25 Creatine Kinase: 592, 3890, 4647, 2341, 980, 393, 239 Treatment: Monitor Creatine Kinase Lactated Ringers IV 150cc/hour 03/21-03/23 Please clarify the type of rhabdomyolysis, if known: [ ] Traumatic rhabdomyolysis due to fall [ ] Traumatic rhabdomyolysis due to prolonged immobility [ x ] Traumatic rhabdomyolysis due to fall and prolonged immobility [ ] Other, please specify [ ] Unable to Determine MTDD
[2024-03-25 11:17] LABS: Glucose,Whole Blood 208 mg/dL (70-110)
--- NOTE | 2024-03-25 16:05 | P.PN ---
Progress Note - Text Progress Note Date: 03/25/24 Follow-up Mediation Review Chief Complaint: I very depressed Subjective: The patient continues to complain of sever depression and inability to move. The patient complains of loss of strength. The patients MS has not changed much. His current CPK is 239. His 02 sat is 93-95 and BP is is running on the low side. Leading questions: The patient admitted to Depression and Anxiety. Denied SI or HI. Denied symptoms consistent with psychosis Sleep and Appetite: Fair. Change in family/ living/job/financial/daily routine: No change. Objective- MSE: Alert and attentive. Orientation times three. Dressed and Groomed: Adequately. Pleasant and cooperative. Psychomotor Activity: Markedly reduced. Speech: Normal in tone, quality, and quantity. Mood: Depressed. Affect: Withdrawn, blunted. SI or HI: None. Perceptual disturbance: No hallucinatory behavior noted. Thought Content: No paranoia or other delusional thinking noted today. Thought Process: Normal. Cognition: Intact Judgment and Insight: Poor No waxy flexibility, mutism, and negativism noted. No oppositional behavior noted. No h/o conversion disorder or symptoms consistent with conversion disorder noted. A trial of diagnostic test with Ativan is questionable in this case but may be considered, if BP and 02 sat permits. AIMS: Normal. Labs: Reviewed. Diagnosis: Schizoaffective disorder. Plan and Recommendations: Restart Zoloft 25 mg po daily, Buspar 10 mg bid, Ativan 0.5 mg bid. Hold if BP is less than 90/60 or 02 less than 94 or if patient is sedated. Consider resuming antipsychotic after CPK is normal daily close monitoring of CPK. Monitor MS and side effects of medications and adjust medications accordingly. The patient to be transferred to med-psych unit for further management of psychiatric condition. Evaluation for ECT treatment is recommended. The patient will benefit with physical therapy. Medication Consent with explanation of risk/benefits and side effects: Explained and obtained.
[2024-03-25 16:23] LABS: Glucose,Whole Blood 202 mg/dL (70-110)
[2024-03-25 20:54] LABS: Glucose,Whole Blood 222 mg/dL (70-110)
[2024-03-25] MEDS: busPIRone HCl 10 MG TAB PO SCH (21:13)
[2024-03-25] MEDS: LORazepam 0.5 MG TAB PO SCH (21:13)
--- NOTE | 2024-03-26 06:10 | P.PN ---
Subjective Progress Note Date: 03/25/24 Chief Complaint: Elevated CPK These are the notes from our ER physician: This patient is a 53-year-old man who reportedly has history of mood disorder, schizophrenia, and previous catatonic episode. The patient arrives here as transfer from [facility]. He was reportedly sent there from what sounds like a rescue mission. It was reported me that the patient's brother had dropped the patient there and that after he was evaluated he was sent to the hospital. When I interviewed the patient, he states that he is feeling well. He is denying complaints when asked of pain, dyspnea, nausea. The patient paperwork from the other hospital states that they wanted him admitted to psychiatry as he has had previous similar episodes to this when his underlying psychiatric disease flares up. The patient reportedly had fallen a couple of days ago and then had been lying on the floor for an unknown period of time. At the other facility his CPK was found to be 1070. His workup included head CT reported to be negative for acute intracranial hemorrhage or fracture. The remainder of the patient's labs include normal CBC, chemistry is remarkable only for blood glucose of 160. Alcohol Tylenol and salicylates were negative. TSH was normal. Urine drug screen was negative. Patient himself does not give much of a history. He did eat some breakfast this morning. Has a sitter. Getting IV fluids for some rhabdomyolysis. Limited answering questions. At her baseline patient is independent. With ADLs. Psychiatry was sent from the ER regarding home medications March 22: Patient mated with acute rhabdomyolysis. Some worsening of CPK. Getting IV fluids. Has a sitter at the bedside. Did eat his breakfast. CPK yesterday it got up to 4647. This morning down to 2341. Will watch another 24 hours. Seen by psychiatry. Diagnosis of schizoaffective disorder. Patient is slow to move his limbs. Answering in a monotone. 03/23/2024 Patient is seen and evaluated in follow-up today continues with sitter at the bedside for suicidal ideation. Patient evaluated by psych recommending inpat ient psych unit transfer once medically stable. Patient is continued on IV hydration for elevated CK with concerns of acute rhabdomyolysis. Patient continues to report inability to ambulate and will have PT/OT therapy evaluate the patient. CK levels trending down. Per sitter at the bedside patient is eating. Patient is afebrile with no reported chest pain or shortness of breath. Denies any nausea or vomiting and patient also continues with Baltazar catheter at this time. Review of systems: Unable to completely assess as patient is speaking in one- word sentences and slow to respond Social history: Patient currently staying at [facility]. Homeless fdc. At the baseline independent with ADLs Physical examination: GENERAL: This is a 53-year-old male who is awake, alert and oriented x 1-2, minimally conversational speaking in one-word phrases although answering questi ons appropriately EYES: Pupils equal. Conjunctiva normal. HEENT: External appearance of nose and ears normal, oral cavity grossly normal. NECK: JVD not raised; masses not palpable. HEART: S1, S2 are muffled LUNGS: Respiratory rate normal; clear to auscultation with no wheezing or rhonchi noted. ABDOMEN: Soft, nontender, normal bowel sounds noted, no masses palpable. PSYCH: Speaks slowly and monotone. Very low volume. MUSCULOSKELETAL:No Clubbing/cyanosis;muscles-grossly intact NEUROLOGICAL: [Cranial nerves grossly intact; no facial asymmetry, lifting his arms and legs a little bit only. Assessment plan: -Schizoaffective disorder, meets inpatient criteria for psych once medically stable -Acute traumatic rhabdomyolysis, secondary to fall with prolonged downtime: Improving -Hyperlipidemia, hold statin therapy for now -Essential hypertension -Diabetes mellitus type 2, chronically on insulin, continue with Accu-Cheks ACHS and adjust insulins as needed -BPH -Bipolar schizoaffective disorder -GI prophylaxis -DVT prophylaxis -Full code Plan: CPK levels have improved and will discontinue IV fluids Patient with indwelling Baltazar catheter which was reportedly for retention, jordyn rosado does have history of BPH and maintained on Flomax will attempt trial of void after PT/OT therapy evaluation Patient reports he cannot walk and was ambulatory living in a homeless fdc prior to arrival. PT/OT therapy evaluated the patient and will likely need rehab Psychiatry following and meets inpatient criteria once medically stable. Case management/social work following and looking into a medical facility with psychiatric services as they are unable to accommodate the patient here on 3 W. given medical issues Continue monitoring Accu-Cheks before meals and at bedtime and adjust insulins accordingly Continue suicide sitter at the bedside Will discuss further with social work regarding discharge planning. Possible discharge in the next 24 to 48 hours The impression and plan of care has been dictated by Kanchan Munoz, Nurse Practitioner as directed. Dr. Becca MD I have performed a history and examination and MDM of this patient, discussed the same with the dictator, and agree with the dictator's assessment and plan as written ,documented as a scribe. Based on total visit time, I have performed more than 50% of the visit. Objective - Vital Signs Vital signs: Vital Signs Temp 97.3 F L 03/25/24 07:09 Pulse 84 03/25/24 07:09 Resp 19 03/25/24 07:09 BP 108/69 03/25/24 07:09 Pulse Ox 93 L 03/25/24 07:09 FiO2 Intake & Output 03/24/24 03/25/24 03/25/24 18:59 06:59 18:59 Intake Total 370 Output Total 2600 1275 Balance -2600 -905 Intake: Oral 370 Output: Urine 2600 1275 Other: Voiding Method Indwelling Catheter Indwelling Catheter # Bowel Movements 1 - Labs CBC & Chem 7: 03/24/24 07:07 03/24/24 07:07 Labs: Abnormal Lab Results - Last 24 Hours (Table) 03/24/24 03/24/24 03/24/24 Range/Units 11:32 16:32 20:33 POC Glucose (mg/dL) 222 H 199 H 210 H (70-110) mg/dL 03/25/24 Range/Units 05:48 POC Glucose (mg/dL) 206 H (70-110) mg/dL
[2024-03-26 06:25] LABS: Glucose,Whole Blood 197 mg/dL (70-110)
[2024-03-26] MEDS: SERTRALINE 25 MG TAB PO SCH (08:09)
[2024-03-26 11:26] LABS: Glucose,Whole Blood 221 mg/dL (70-110)
[2024-03-26 17:53] LABS: Glucose,Whole Blood 293 mg/dL (70-110)
[2024-03-26 20:03] LABS: Glucose,Whole Blood 251 mg/dL (70-110)
--- NOTE | 2024-03-27 06:22 | P.PN ---
Subjective Progress Note Date: 03/26/24 Chief Complaint: Elevated CPK These are the notes from our ER physician: This patient is a 53-year-old man who reportedly has history of mood disorder, schizophrenia, and previous catatonic episode. The patient arrives here as transfer from [facility]. He was reportedly sent there from what sounds like a rescue mission. It was reported me that the patient's brother had dropped the patient there and that after he was evaluated he was sent to the hospital. When I interviewed the patient, he states that he is feeling well. He is denying complaints when asked of pain, dyspnea, nausea. The patient paperwork from the other hospital states that they wanted him admitted to psychiatry as he has had previous similar episodes to this when his underlying psychiatric disease flares up. The patient reportedly had fallen a couple of days ago and then had been lying on the floor for an unknown period of time. At the other facility his CPK was found to be 1070. His workup included head CT reported to be negative for acute intracranial hemorrhage or fracture. The remainder of the patient's labs include normal CBC, chemistry is remarkable only for blood glucose of 160. Alcohol Tylenol and salicylates were negative. TSH was normal. Urine drug screen was negative. Patient himself does not give much of a history. He did eat some breakfast this morning. Has a sitter. Getting IV fluids for some rhabdomyolysis. Limited answering questions. At her baseline patient is independent. With ADLs. Psychiatry was sent from the ER regarding home medications March 22: Patient mated with acute rhabdomyolysis. Some worsening of CPK. Getting IV fluids. Has a sitter at the bedside. Did eat his breakfast. CPK yesterday it got up to 4647. This morning down to 2341. Will watch another 24 hours. Seen by psychiatry. Diagnosis of schizoaffective disorder. Patient is slow to move his limbs. Answering in a monotone. 03/23/2024 Patient is seen and evaluated in follow-up today continues with sitter at the bedside for suicidal ideation. Patient evaluated by psych recommending inpat ient psych unit transfer once medically stable. Patient is continued on IV hydration for elevated CK with concerns of acute rhabdomyolysis. Patient continues to report inability to ambulate and will have PT/OT therapy evaluate the patient. CK levels trending down. Per sitter at the bedside patient is eating. Patient is afebrile with no reported chest pain or shortness of breath. Denies any nausea or vomiting and patient also continues with Baltazar catheter at this time. 03/26/2024 Patient is seen this morning continues with sitter at the bedside with initial complaints of suicidal ideation. Patient has been evaluated by psych recommending medical psych facility for continued psychiatric evaluation and medical care. Patient was maintained on IV hydration and CK levels have improved and under 300. Patient continues to report he is unable to walk and has been evaluated by physical therapy recommend daily. Patient is tolerating oral intake with no reported nausea or vomiting. Patient denies any chest pain or shortness of breath. Patient unable to transfer here on 3 W. with social work following currently working on outpatient psychiatric facilities Review of systems: Unable to completely assess as patient is speaking in one- word sentences and slow to respond Social history: Patient currently staying at [facility]. Homeless [facility]. At the baseline independent with ADLs Physical examination: GENERAL: This is a 53-year-old male who is awake, alert and oriented x 1-2, minimally conversational speaking in one-word phrases although answering questions appropriately EYES: Pupils equal. Conjunctiva normal. improved eye tracking today HEENT: External appearance of nose and ears normal, oral cavity grossly normal. NECK: JVD not raised; masses not palpable. HEART: S1, S2 are muffled LUNGS: Respiratory rate normal; clear to auscultation with no wheezing or rhonchi noted. ABDOMEN: Soft, nontender, normal bowel sounds noted, no masses palpable. PSYCH: Speaks slowly and monotone. Very low volume. MUSCULOSKELETAL:No Clubbing/cyanosis;muscles-grossly intact NEUROLOGICAL: Cranial nerves grossly intact; no facial asymmetry, lifting his arms and legs up on command, able to wiggle toes Assessment plan: -Schizoaffective disorder, meets inpatient criteria for psych once medically stable -Acute traumatic rhabdomyolysis, secondary to fall with prolonged downtime: Improving -Hyperlipidemia, hold statin therapy for now -Essential hypertension -Diabetes mellitus type 2, chronically on insulin, continue with Accu-Cheks ACHS and adjust insulins as needed -BPH -Bipolar schizoaffective disorder -GI prophylaxis -DVT prophylaxis -Full code Plan: CPK levels have improved and will discontinue IV fluids Patient with indwelling Baltazar catheter which was reportedly for retention, patient does have history of BPH and maintained on Flomax will attempt trial of void after PT/OT therapy evaluation Patient reports he cannot walk and was ambulatory living in a homeless [facility] prior to arrival. PT/OT therapy evaluated the patient and will likely need rehab Psychiatry following and meets inpatient criteria once medically stable. Case management/social work following and looking into a medical facility with psychiatric services as they are unable to accommodate the patient here on 3 W. given medical issues Continue monitoring Accu-Cheks before meals and at bedtime and adjust insulins accordingly. INcrease long acting Continue suicide sitter at the bedside Will discuss further with social work regarding discharge planning. Possible discharge in the next 24 to 48 hours The impression and plan of care has been dictated by Kanchan Munoz, Nurse Practitioner as directed. Dr. Becca MD I have performed a history and examination and MDM of this patient, discussed the same with the dictator, and agree with the dictator's assessment and plan as written ,documented as a scribe. Based on total visit time, I have performed more than 50% of the visit. Objective - Vital Signs Vital signs: Vital Signs Temp 98.5 F 03/26/24 07:02 Pulse 82 03/26/24 07:02 Resp 17 03/26/24 07:02 BP 123/79 03/26/24 07:02 Pulse Ox 95 03/26/24 07:02 FiO2 Intake & Output 03/25/24 03/26/24 03/26/24 18:59 06:59 18:59 Output Total 1600 425 Balance -1600 -425 Output: Urine 1600 425 Other: Voiding Method Indwelling Catheter Indwelling Catheter - Labs CBC & Chem 7: 03/24/24 07:07 03/24/24 07:07 Labs: Abnormal Lab Results - Last 24 Hours (Table) 03/25/24 03/25/24 03/25/24 Range/Units 11:16 16:22 20:52 POC Glucose (mg/dL) 208 H 202 H 222 H (70-110) mg/dL 03/26/24 Range/Units 06:24 POC Glucose (mg/dL) 197 H (70-110) mg/dL
[2024-03-27 07:02] LABS: Glucose,Whole Blood 189 mg/dL (70-110)
[2024-03-27] MEDS: INSULIN DETEMIR (LEVEMIR) 100 UNIT/ML SYR SQ SCH (08:58)
[2024-03-27 10:29] LABS: BUN/Creat Ratio 19.83 Ratio (12.00-20.00); Blood Urea Nitrogen 11.9 mg/dL (9.0-27.0); Calcium 9.8 mg/dL (8.7-10.3); Carbon Dioxide 22.7 mmol/L (21.6-31.8); Chloride 100 mmol/L (96-109); Glucose 221 mg/dL (70-110); Magnesium 1.9 mg/dL (1.5-2.4); Potassium 4.4 mmol/L (3.5-5.5); Sodium 137 mmol/L (135-145)
[2024-03-27 12:02] LABS: Glucose,Whole Blood 218 mg/dL (70-110)
[2024-03-27 17:12] LABS: Glucose,Whole Blood 222 mg/dL (70-110)
--- NOTE | 2024-03-27 19:00 | P.PN ---
Progress Note - Text Progress Note Date: 03/27/24 Chief Complaint: Elevated CPK These are the notes from our ER physician: This patient is a 53-year-old man who reportedly has history of mood disorder, schizophrenia, and previous catatonic episode. The patient arrives here as transfer from [facility]. He was reportedly sent there from what sounds like a rescue mission. It was reported me that the patient's brother had dropped the patient there and that after he was evaluated he was sent to the hospital. When I interviewed the patient, he states that he is feeling well. He is denying complaints when asked of pain, dyspnea, nausea. The patient paperwork from the other hospital states that they wanted him admitted to psychiatry as he has had previous similar episodes to this when his underlying psychiatric disease flares up. The patient reportedly had fallen a couple of days ago and then had been lying on the floor for an unknown period of time. At the other facility his CPK was found to be 1070. His workup included head CT reported to be negative for acute intracranial hemorrhage or fracture. The remainder of the patient's labs include normal CBC, chemistry is remarkable only for blood glucose of 160. Alcohol Tylenol and salicylates were negative. TSH was normal. Urine drug screen was negative. Patient himself does not give much of a history. He did eat some breakfast this morning. Has a sitter. Getting IV fluids for some rhabdomyolysis. Limited ans wering questions. At her baseline patient is independent. With ADLs. Psychiatry was sent from the ER regarding home medications 03/23/2024 Patient is seen and evaluated in follow-up today continues with sitter at the bedside for suicidal ideation. Patient evaluated by psych recommending inpatient psych unit transfer once medically stable. Patient is continued on IV hydration for elevated CK with concerns of acute rhabdomyolysis. Patient continues to report inability to ambulate and will have PT/OT therapy evaluate the patient. CK levels trending down. Per sitter at the bedside patient is eating. Patient is afebrile with no reported chest pain or shortness of breath. Denies any nausea or vomiting and patient also continues with Baltazar catheter at this time. 03/26/2024 Patient is seen this morning continues with sitter at the bedside with initial complaints of suicidal ideation. Patient has been evaluated by psych recommending medical psych facility for continued psychiatric evaluation and medical care. Patient was maintained on IV hydration and CK levels have improved and under 300. Patient continues to report he is unable to walk and has been evaluated by physical therapy recommend daily. Patient is tolerating oral intake with no reported nausea or vomiting. Patient denies any chest pain or shortness of breath. Patient unable to transfer here on 3 W. with social w ork following currently working on outpatient psychiatric facilities March 27, 2024: Laying in bed. Will answer questions slowly. Has a sitter. 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 Eating about 25% Active Medications Acetaminophen (Acetaminophen Tab 325 Mg Tab) 650 mg PO Q6HR PRN PRN Reason: Fever and/ or Mild Pain Last Admin: 03/25/24 10:24 Dose: 650 mg Buspirone HCl (Buspirone Hcl 10 Mg Tab) 10 mg PO BID [facility] Last Admin: 03/27/24 08:58 Dose: 10 mg Dextrose/Water (Dextrose 50% Syringe 50 Ml) 25 ml IVP PER PROTOCOL PRN; Protocol PRN Reason: Hypoglycemia Dextrose/Water (Dextrose 50% Syringe 50 Ml) 50 ml IVP PER PROTOCOL PRN; Protocol PRN Reason: Hypoglycemia Enoxaparin Sodium (Enoxaparin 40 Mg/0.4 Ml Syringe) 40 mg SQ DAILY [facility] Last Admin: 03/27/24 08:58 Dose: 40 mg Furosemide (Furosemide 20 Mg Tab) 20 mg PO BID@0900,1600 [facility] Last Admin: 03/27/24 15:50 Dose: 20 mg Insulin Aspart (Insulin Aspart (Novolog) 100 Unit/Ml Vial) [address] [facility]; Protocol Last Admin: 03/27/24 17:57 Dose: 4 unit Insulin Detemir (Insulin Detemir (Levemir) 100 Unit/Ml Syr) 15 unit SQ BID@0700,2100 [facility] Last Admin: 03/27/24 08:58 Dose: 15 unit Lisinopril (Lisinopril 2.5 Mg Tab) 2.5 mg PO DAILY [facility] Last Admin: 03/27/24 08:59 Dose: 2.5 mg Lorazepam (Lorazepam 0.5 Mg Tab) 0.5 mg PO BID [facility] Last Admin: 03/27/24 08:59 Dose: 0.5 mg Miscellaneous Information (Magnesium Replacement Protocol 1 Each Misc) 1 each MISCELLANE DAILY PRN; Protocol PRN Reason: Per Protocol Naloxone HCl (Naloxone 0.4 Mg/Ml 1 Ml Vial) 0.2 mg IV Q2M PRN PRN Reason: Opioid Reversal Ondansetron HCl (Ondansetron 4 Mg/2 Ml Vial) 4 mg IVP Q8HR PRN PRN Reason: Nausea And Vomiting Pantoprazole Sodium (Pantoprazole 40 Mg Tablet) 40 mg PO AC-BRKFST [facility] Last Admin: 03/27/24 08:58 Dose: 40 mg Petrolatum (Zinc Oxide Paste (Z-Guard) 1 Applic) 1 applic TOPICAL DAILY [facility]; Protocol Last Admin: 03/27/24 09:00 Dose: 1 applic Pioglitazone HCl (Pioglitazone 30 Mg Tab) 30 mg PO DAILY [facility] Last Admin: 03/27/24 08:59 Dose: 30 mg Sertraline HCl (Sertraline 25 Mg Tab) 25 mg PO DAILY [facility] Last Admin: 03/27/24 08:59 Dose: 25 mg Tamsulosin HCl (Tamsulosin 0.4 Mg Cap.Er.24h) 0.4 mg PO DAILY [facility] Last Admin: 03/27/24 08:59 Dose: 0.4 mg Social history: Patient currently staying at [facility]. Homeless longterm. At the baseline independent with ADLs. Physical examination: VITAL SIGNS: 98.3, 86, 16, 1 one 9 x 77, 93% room air GENERAL:, laying in bed, tired appearing EYES: Pupils equal. Conjunctiva finn l. HEENT: External appearance of nose and ears normal, oral cavity grossly normal. NECK: JVD not raised; masses not palpable. HEART: First and second heart sounds are normal; no edema. LUNGS: Respiratory rate normal; clear to auscultation. ABDOMEN: Soft, nontender, liver spleen not palpable, no masses palpable. PSYCH: Speaks only and monotone. Very low volume. Appears rather withdrawn l. NEUROLOGICAL: [Cranial nerves grossly intact; no facial asymmetry, slow movement of limbs INVESTIGATIONS, reviewed in the clinical context: March 27: Potassium 4.4 BUN 11.9 creatinine 0.6 Mar 21 2024: White count 7.1 hemoglobin 13.1 platelets 151 sodium 137 potassium 3.8 creatinine 0.63 CPK 3890 March 20: CPK 592 UA: Ketones 2+ Urine drug screen: Negative Assessment plan: -Schizoaffective disorder Being followed by psychiatry. Has a sitter. -Acute rhabdomyolysis, secondary to fall: Resolved IV fluids -Hyperlipidemia Lipitor-resume -Essential hypertension Resume lisinopril. [Blood pressure was higher when came in possibly from pain discomfort.] -Diabetes mellitus type 2, chronically on insulin Resume metformin. Insulin. -BPH Flomax -Full code Pending placement to psych facility. Resume metformin. Stop Lasix Past Medical History Past Medical History: Diabetes Mellitus, Hyperlipidemia, Hypertension Additional Past Medical History / Comment(s): bipolar, schizophrenia. History of Any Multi-Drug Resistant Organisms: None Reported Additional Past Surgical History / Comment(s): right shoulder Past Anesthesia/Blood Transfusion Reactions: No Reported Reaction Past Psychological History: No Psychological Hx Reported, Bipolar, Depression, Schizoaffective Disorder Smoking Status: Never smoker Past Alcohol Use History: None Reported Past Drug Use History: None Reported
[2024-03-27 20:15] LABS: Glucose,Whole Blood 212 mg/dL (70-110)
[2024-03-27] MEDS: ATORVASTATIN 40 MG TAB PO SCH (21:03)
[2024-03-27] MEDS: metFORMIN 500 MG TAB PO SCH (21:03)
[2024-03-28 07:29] LABS: Glucose,Whole Blood 212 mg/dL (70-110)
[2024-03-28 11:39] LABS: Glucose,Whole Blood 191 mg/dL (70-110)
[2024-03-28 15:30] VITALS: BMI 24.4
[2024-03-28 16:57] LABS: Glucose,Whole Blood 140 mg/dL (70-110)
--- NOTE | 2024-03-28 18:02 | P.PN ---
Progress Note - Text Progress Note Date: 03/28/24 Chief Complaint: Elevated CPK These are the notes from our ER physician: This patient is a 53-year-old man who reportedly has history of mood disorder, schizophrenia, and previous catatonic episode. The patient arrives here as transfer from [facility]. He was reportedly sent there from what sounds like a rescue mission. It was reported me that the patient's brother had dropped the patient there and that after he was evaluated he was sent to the hospital. When I interviewed the patient, he states that he is feeling well. He is denying complaints when asked of pain, dyspnea, nausea. The patient paperwork from the other hospital states that they wanted him admitted to psychiatry as he has had previous similar episodes to this when his underlying psychiatric disease flares up. The patient reportedly had fallen a couple of days ago and then had been lying on the floor for an unknown period of time. At the other facility his CPK was found to be 1070. His workup included head CT reported to be negative for acute intracranial hemorrhage or fracture. The remainder of the patient's labs include normal CBC, chemistry is remarkable only for blood glucose of 160. Alcohol Tylenol and salicylates were negative. TSH was normal. Urine drug screen was negative. Patient himself does not give much of a history. He did eat some breakfast this morning. Has a sitter. Getting IV fluids for some rhabdomyolysis. Limited ans wering questions. At her baseline patient is independent. With ADLs. Psychiatry was sent from the ER regarding home medications 03/23/2024 Patient is seen and evaluated in follow-up today continues with sitter at the bedside for suicidal ideation. Patient evaluated by psych recommending inpatient psych unit transfer once medically stable. Patient is continued on IV hydration for elevated CK with concerns of acute rhabdomyolysis. Patient continues to report inability to ambulate and will have PT/OT therapy evaluate the patient. CK levels trending down. Per sitter at the bedside patient is eating. Patient is afebrile with no reported chest pain or shortness of breath. Denies any nausea or vomiting and patient also continues with Baltazar catheter at this time. 03/26/2024 Patient is seen this morning continues with sitter at the bedside with initial complaints of suicidal ideation. Patient has been evaluated by psych recommending medical psych facility for continued psychiatric evaluation and medical care. Patient was maintained on IV hydration and CK levels have improved and under 300. Patient continues to report he is unable to walk and has been evaluated by physical therapy recommend daily. Patient is tolerating oral intake with no reported nausea or vomiting. Patient denies any chest pain or shortness of breath. Patient unable to transfer here on 3 W. with social w ork following currently working on outpatient psychiatric facilities March 27, 2024: Laying in bed. Will answer questions slowly. Has a sitter. 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 Eating about 25% March 282023: Patient to sit up more in the chair. Eating some. Pending accepting facility for psychiatry. Baltazar was discontinued yesterday. Urinating well. Active Medications Acetaminophen (Acetaminophen Tab 325 Mg Tab) 650 mg PO Q6HR PRN PRN Reason: Fever and/ or Mild Pain Last Admin: 03/25/24 10:24 Dose: 650 mg Atorvastatin Calcium (Atorvastatin 40 Mg Tab) 40 mg PO [facility] Last Admin: 03/27/24 21:03 Dose: 40 mg Buspirone HCl (Buspirone Hcl 10 Mg Tab) 10 mg PO BID [facility] Last Admin: 03/28/24 08:23 Dose: 10 mg Dextrose/Water (Dextrose 50% Syringe 50 Ml) 25 ml IVP PER PROTOCOL PRN; Protocol PRN Reason: Hypoglycemia Dextrose/Water (Dextrose 50% Syringe 50 Ml) 50 ml IVP PER PROTOCOL PRN; Protocol PRN Reason: Hypoglycemia Enoxaparin Sodium (Enoxaparin 40 Mg/0.4 Ml Syringe) 40 mg SQ DAILY [facility] Last Admin: 03/28/24 08:23 Dose: 40 mg Insulin Aspart (Insulin Aspart (Novolog) 100 Unit/Ml Vial) 0 unit SQ [facility]; Protocol Last Admin: 03/28/24 17:09 Dose: Not Given Insulin Detemir (Insulin Detemir (Levemir) 100 Unit/Ml Syr) 15 unit SQ BID@0700,2100 [facility] Last Admin: 03/28/24 08:23 Dose: 15 unit Lisinopril (Lisinopril 2.5 Mg Tab) 2.5 mg PO DAILY [facility] Last Admin: 03/28/24 08:23 Dose: 2.5 mg Lorazepam (Lorazepam 0.5 Mg Tab) 0.5 mg PO BID [facility] Last Admin: 03/28/24 08:23 Dose: 0.5 mg Metformin HCl (Metformin 500 Mg Tab) 1,000 mg PO AC-BID [facility] Last Admin: 03/28/24 17:30 Dose: 1,000 mg Miscellaneous Information (Magnesium Replacement Protocol 1 Each Misc) 1 each MISCELLANE DAILY PRN; Protocol PRN Reason: Per Protocol Naloxone HCl (Naloxone 0.4 Mg/Ml 1 Ml Vial) 0.2 mg IV Q2M PRN PRN Reason: Opioid Reversal Ondansetron HCl (Ondansetron 4 Mg/2 Ml Vial) 4 mg IVP Q8HR PRN PRN Reason: Nausea And Vomiting Pantoprazole Sodium (Pantoprazole 40 Mg Tablet) 40 mg PO AC-BRKFST [facility] Last Admin: 03/28/24 08:23 Dose: 40 mg Petrolatum (Zinc Oxide Paste (Z-Guard) 1 Applic) 1 applic TOPICAL DAILY [facility]; Protocol Last Admin: 03/28/24 08:24 Dose: 1 applic Pioglitazone HCl (Pioglitazone 30 Mg Tab) 30 mg PO DAILY [facility] Last Admin: 03/28/24 08:24 Dose: 30 mg Sertraline HCl (Sertraline 25 Mg Tab) 25 mg PO DAILY [facility] Last Admin: 03/28/24 08:24 Dose: 25 mg Tamsulosin HCl (Tamsulosin 0.4 Mg Cap.Er.24h) 0.4 mg PO DAILY [facility] Last Admin: 03/28/24 08:23 Dose: 0.4 mg Social history: Patient currently staying at [facility] [place]. Homeless custodial. At the baseline independent with ADLs. Physical examination: VITAL SIGNS: 98.1, 99, 18, 130 send 86, 95% room air GENERAL:, laying in bed, withdrawn EYES: Pupils equal. Conjunctiva finn l. HEENT: External appearance of nose and ears normal, oral cavity grossly normal. NECK: JVD not raised; masses not palpable. HEART: First and second heart sounds are normal; no edema. LUNGS: Respiratory rate normal; clear to auscultation. ABDOMEN: Soft, nontender, liver spleen not palpable, no masses palpable. PSYCH: Speaks only and monotone. Very low volume. withdrawn l. NEUROLOGICAL: [Cranial nerves grossly intact; no facial asymmetry, slow movement of limbs. Does ambulate to the bathroom INVESTIGATIONS, reviewed in the clinical context: March 27: Potassium 4.4 BUN 11.9 creatinine 0.6 Mar 21 2024: White count 7.1 hemoglobin 13.1 platelets 151 sodium 137 potassium 3.8 creatinine 0.63 CPK 3890 March 20: CPK 592 UA: Ketones 2+ Urine drug screen: Negative Assessment plan: -Schizoaffective disorder Being followed by psychiatry. Has a sitter. -Acute rhabdomyolysis, secondary to fall: Resolved -Hyperlipidemia Lipitor-resume -Essential hypertension Resume lisinopril. -Diabetes mellitus type 2, chronically on insulin Actos metformin. Insulin. -BPH Flomax -Full code Pending placement to psych facility. Continue medications. Up in chair. Past Medical History Past Medical History: Diabetes Mellitus, Hyperlipidemia, Hypertension Additional Past Medical History / Comment(s): bipolar, schizophrenia. History of Any Multi-Drug Resistant Organisms: None Reported Additional Past Surgical History / Comment(s): right shoulder Past Anesthesia/Blood Transfusion Reactions: No Reported Reaction Past Psychological History: No Psychological Hx Reported, Bipolar, Depression, Schizoaffective Disorder Smoking Status: Never smoker Past Alcohol Use History: None Reported Past Drug Use History: None Reported
[2024-03-28 20:13] LABS: Glucose,Whole Blood 178 mg/dL (70-110)
[2024-03-29 07:13] LABS: Glucose,Whole Blood 138 mg/dL (70-110)
[2024-03-29 12:15] LABS: Glucose,Whole Blood 181 mg/dL (70-110)
[2024-03-29 17:27] LABS: Glucose,Whole Blood 135 mg/dL (70-110)
[2024-03-29 20:43] LABS: Glucose,Whole Blood 159 mg/dL (70-110)
--- NOTE | 2024-03-29 21:51 | P.PN ---
Progress Note - Text Progress Note Date: 03/29/24 Chief Complaint: Elevated CPK These are the notes from our ER physician: This patient is a 53-year-old man who reportedly has history of mood disorder, schizophrenia, and previous catatonic episode. The patient arrives here as transfer from [facility]. He was reportedly sent there from what sounds like a rescue mission. It was reported me that the patient's brother had dropped the patient there and that after he was evaluated he was sent to the hospital. When I interviewed the patient, he states that he is feeling well. He is denying complaints when asked of pain, dyspnea, nausea. The patient paperwork from the other hospital states that they wanted him admitted to psychiatry as he has had previous similar episodes to this when his underlying psychiatric disease flares up. The patient reportedly had fallen a couple of days ago and then had been lying on the floor for an unknown period of time. At the other facility his CPK was found to be 1070. His workup included head CT reported to be negative for acute intracranial hemorrhage or fracture. The remainder of the patient's labs include normal CBC, chemistry is remarkable only for blood glucose of 160. Alcohol Tylenol and salicylates were negative. TSH was normal. Urine drug screen was negative. Patient himself does not give much of a history. He did eat some breakfast this morning. Has a sitter. Getting IV fluids for some rhabdomyolysis. Limited ans wering questions. At her baseline patient is independent. With ADLs. Psychiatry was sent from the ER regarding home medications 03/23/2024 Patient is seen and evaluated in follow-up today continues with sitter at the bedside for suicidal ideation. Patient evaluated by psych recommending inpatient psych unit transfer once medically stable. Patient is continued on IV hydration for elevated CK with concerns of acute rhabdomyolysis. Patient continues to report inability to ambulate and will have PT/OT therapy evaluate the patient. CK levels trending down. Per sitter at the bedside patient is eating. Patient is afebrile with no reported chest pain or shortness of breath. Denies any nausea or vomiting and patient also continues with Baltazar catheter at this time. 03/26/2024 Patient is seen this morning continues with sitter at the bedside with initial complaints of suicidal ideation. Patient has been evaluated by psych recommending medical psych facility for continued psychiatric evaluation and medical care. Patient was maintained on IV hydration and CK levels have improved and under 300. Patient continues to report he is unable to walk and has been evaluated by physical therapy recommend daily. Patient is tolerating oral intake with no reported nausea or vomiting. Patient denies any chest pain or shortness of breath. Patient unable to transfer here on 3 W. with social w ork following currently working on outpatient psychiatric facilities March 27, 2024: Laying in bed. Will answer questions slowly. Has a sitter. 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 Eating about 25% March 282023: Patient to sit up more in the chair. Eating some. Pending accepting facility for psychiatry. Baltazar was discontinued yesterday. Urinating well. March 29: Up in a chair. Eating. Able to get to the bathroom. Nurses did call the psychiatry unit and left a message for them to have the attending psychiatry evaluate the patient for possible discharge to psych unit./Otherwise That Active Medications Acetaminophen (Acetaminophen Tab 325 Mg Tab) 650 mg PO Q6HR PRN PRN Reason: Fever and/ or Mild Pain Last Admin: 03/29/24 02:55 Dose: 650 mg Atorvastatin Calcium (Atorvastatin 40 Mg Tab) 40 mg PO HS [facility] Last Admin: 03/29/24 20:52 Dose: 40 mg Buspirone HCl (Buspirone Hcl 10 Mg Tab) 10 mg PO BID [facility] Last Admin: 03/29/24 20:52 Dose: 10 mg Dextrose/Water (Dextrose 50% Syringe 50 Ml) 25 ml IVP PER PROTOCOL PRN; Protocol PRN Reason: Hypoglycemia Dextrose/Water (Dextrose 50% Syringe 50 Ml) 50 ml IVP PER PROTOCOL PRN; Protocol PRN Reason: Hypoglycemia Enoxaparin Sodium (Enoxaparin 40 Mg/0.4 Ml Syringe) 40 mg SQ DAILY [facility] Last Admin: 03/29/24 08:12 Dose: 40 mg Insulin Aspart (Insulin Aspart (Novolog) 100 Unit/Ml Vial) 0 unit SQ [facility]; Protocol Last Admin: 03/29/24 20:53 Dose: 2 unit Insulin Detemir (Insulin Detemir (Levemir) 100 Unit/Ml Syr) 15 unit SQ BID@0700,2100 [facility] Last Admin: 03/29/24 20:53 Dose: 15 unit Lisinopril (Lisinopril 2.5 Mg Tab) 2.5 mg PO DAILY [facility] Last Admin: 03/29/24 08:12 Dose: 2.5 mg Lorazepam (Lorazepam 0.5 Mg Tab) 0.5 mg PO BID [facility] Last Admin: 03/29/24 20:52 Dose: 0.5 mg Metformin HCl (Metformin 500 Mg Tab) 1,000 mg PO AC-BID [facility] Last Admin: 03/29/24 17:59 Dose: 1,000 mg Miscellaneous Information (Magnesium Replacement Protocol 1 Each Misc) 1 each MISCELLANE DAILY PRN; Protocol PRN Reason: Per Protocol Naloxone HCl (Naloxone 0.4 Mg/Ml 1 Ml Vial) 0.2 mg IV Q2M PRN PRN Reason: Opioid Reversal Ondansetron HCl (Ondansetron 4 Mg/2 Ml Vial) 4 mg IVP Q8HR PRN PRN Reason: Nausea And Vomiting Pantoprazole Sodium (Pantoprazole 40 Mg Tablet) 40 mg PO AC-BRKFST [facility] Last Admin: 03/29/24 08:12 Dose: 40 mg Petrolatum (Zinc Oxide Paste (Z-Guard) 1 Applic) 1 applic TOPICAL DAILY [facility]; Protocol Last Admin: 03/29/24 08:12 Dose: 1 applic Pioglitazone HCl (Pioglitazone 30 Mg Tab) 30 mg PO DAILY [facility] Last Admin: 03/29/24 08:12 Dose: 30 mg Sertraline HCl (Sertraline 25 Mg Tab) 25 mg PO DAILY [facility] Last Admin: 03/29/24 08:12 Dose: 25 mg Tamsulosin HCl (Tamsulosin 0.4 Mg Cap.Er.24h) 0.4 mg PO DAILY [facility] Last Admin: 03/29/24 08:12 Dose: 0.4 mg Social history: Patient currently staying at [facility] [place] [facility]. At the baseline independent with ADLs. Physical examination: VITAL SIGNS: 98, 97, 16, 122 x 80, 97% room air GENERAL:, Up in a chair, sounds slightly withdrawn EYES: Pupils equal. Conjunctiva finn l. HEENT: External appearance of nose and ears normal, oral cavity grossly normal. NECK: JVD not raised; masses not palpable. HEART: First and second heart sounds are normal; no edema. LUNGS: Respiratory rate normal; clear to auscultation. ABDOMEN: Soft, nontender, liver spleen not palpable, no masses palpable. PSYCH: Speaks only and monotone. Very low volume. withdrawn l. NEUROLOGICAL: [Cranial nerves grossly intact; no facial asymmetry, slow movement of limbs. Does ambulate to the bathroom INVESTIGATIONS, reviewed in the clinical context: March 27: Potassium 4.4 BUN 11.9 creatinine 0.6 Mar 21 2024: White count 7.1 hemoglobin 13.1 platelets 151 sodium 137 potassium 3.8 creatinine 0.63 CPK 3890 March 20: CPK 592 UA: Ketones 2+ Urine drug screen: Negative Assessment plan: -Schizoaffective disorder Being followed by psychiatry. Has a sitter. -Acute rhabdomyolysis, secondary to fall: Resolved -Hyperlipidemia Lipitor-resume -Essential hypertension Resume lisinopril. -Diabetes mellitus type 2, chronically on insulin Actos metformin. Insulin. -BPH Flomax -Full code Have requested the psychiatrist to reevaluate the patient about possible discharge versus transfer to psychiatry unit. Past Medical History Past Medical History: Diabetes Mellitus, Hyperlipidemia, Hypertension Additional Past Medical History / Comment(s): bipolar, schizophrenia. History of Any Multi-Drug Resistant Organisms: None Reported Additional Past Surgical History / Comment(s): right shoulder Past Anesthesia/Blood Transfusion Reactions: No Reported Reaction Past Psychological History: No Psychological Hx Reported, Bipolar, Depression, Schizoaffective Disorder Smoking Status: Never smoker Past Alcohol Use History: None Reported Past Drug Use History: None Reported
--- NOTE | 2024-03-29 23:28 | P.PN ---
Progress Note - Text Progress Note Date: 03/29/24 Follow-up Mediation Review Chief Complaint: I am depressed Subjective: The patient noted that he remains very depressed. On VAS he rated his depression as 10. Ten being worst mood Zero being normal mood. He denied feeling suicidal r homicidal. He did acknowledge that he is eating a little bit and participating in physical therapy. The patient noted that he has regained some strength and is walking a little with assistance of physical therapy. Leading questions: The patient admitted to Depression and Anxiety. Denied SI or HI. Denied symptoms consistent with psychosis Sleep and Appetite: Appetite better. Sleep poor. Objective- MSE: Alert and attentive. Orientation times three. Dressed and Groomed: Appropriately. Pleasant and cooperative. Psychomotor Activity: Severe psychomotor retardation. Speech: low toned, quality, and under productive. The patient responds to closed ended question by one or two sentences. He does not initiate conversation. Mood: Depressed. Affect: Flat SI or HI: None. Perceptual disturbance: None. Thought Content: No paranoia or other delusional thinking noted. Thought Process: Normal. Cognition: Intact Judgment and Insight: Poor. AIMS: Normal. Diagnosis: Major depressive disorder severe, recurrent. Plan and Recommendations: Continue current Medications. The patient will need to be either treated on an in-patient med-psych. unit or he could be placed in a supervised structured rehab facility, where he can be provided physical therapy and psychiatric follow-up.
[2024-03-30 07:12] LABS: Glucose,Whole Blood 185 mg/dL (70-110)
[2024-03-30 11:54] LABS: Glucose,Whole Blood 201 mg/dL (70-110)
[2024-03-30 17:03] LABS: Glucose,Whole Blood 120 mg/dL (70-110)
--- NOTE | 2024-03-30 20:08 | P.PN ---
Progress Note - Text Progress Note Date: 03/30/24 Chief Complaint: Elevated CPK These are the notes from our ER physician: This patient is a 53-year-old man who reportedly has history of mood disorder, schizophrenia, and previous catatonic episode. The patient arrives here as transfer from [facility]. He was reportedly sent there from what sounds like a rescue mission. It was reported me that the patient's brother had dropped the patient there and that after he was evaluated he was sent to the hospital. When I interviewed the patient, he states that he is feeling well. He is denying complaints when asked of pain, dyspnea, nausea. The patient paperwork from the other hospital states that they wanted him admitted to psychiatry as he has had previous similar episodes to this when his underlying psychiatric disease flares up. The patient reportedly had fallen a couple of days ago and then had been lying on the floor for an unknown period of time. At the other facility his CPK was found to be 1070. His workup included head CT reported to be negative for acute intracranial hemorrhage or fracture. The remainder of the patient's labs include normal CBC, chemistry is remarkable only for blood glucose of 160. Alcohol Tylenol and salicylates were negative. TSH was normal. Urine drug screen was negative. Patient himself does not give much of a history. He did eat some breakfast this morning. Has a sitter. Getting IV fluids for some rhabdomyolysis. Limited ans wering questions. At her baseline patient is independent. With ADLs. Psychiatry was sent from the ER regarding home medications 03/23/2024 Patient is seen and evaluated in follow-up today continues with sitter at the bedside for suicidal ideation. Patient evaluated by psych recommending inpatient psych unit transfer once medically stable. Patient is continued on IV hydration for elevated CK with concerns of acute rhabdomyolysis. Patient continues to report inability to ambulate and will have PT/OT therapy evaluate the patient. CK levels trending down. Per sitter at the bedside patient is eating. Patient is afebrile with no reported chest pain or shortness of breath. Denies any nausea or vomiting and patient also continues with Baltazar catheter at this time. 03/26/2024 Patient is seen this morning continues with sitter at the bedside with initial complaints of suicidal ideation. Patient has been evaluated by psych recommending medical psych facility for continued psychiatric evaluation and medical care. Patient was maintained on IV hydration and CK levels have improved and under 300. Patient continues to report he is unable to walk and has been evaluated by physical therapy recommend daily. Patient is tolerating oral intake with no reported nausea or vomiting. Patient denies any chest pain or shortness of breath. Patient unable to transfer here on 3 W. with social w ork following currently working on outpatient psychiatric facilities March 27, 2024: Laying in bed. Will answer questions slowly. Has a sitter. 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 Eating about 25% March 282023: Patient to sit up more in the chair. Eating some. Pending accepting facility for psychiatry. Baltazar was discontinued yesterday. Urinating well. March 29: Up in a chair. Eating. Able to get to the bathroom. Nurses did call the psychiatry unit and left a message for them to have the attending psychiatry evaluate the patient for possible discharge to psych unit./Otherwise March 30: Up in a recliner. Eating some. Walking with assistance. Seen by psychiatry. Diagnosis: Major depressive disorder severe recurrent. Now suggesting inpatient [facility] unit as an option. Active Medications Acetaminophen (Acetaminophen Tab 325 Mg Tab) 650 mg PO Q6HR PRN PRN Reason: Fever and/ or Mild Pain Last Admin: 03/29/24 02:55 Dose: 650 mg Atorvastatin Calcium (Atorvastatin 40 Mg Tab) 40 mg PO HS [facility] Last Admin: 03/29/24 20:52 Dose: 40 mg Buspirone HCl (Buspirone Hcl 10 Mg Tab) 10 mg PO BID [facility] Last Admin: 03/30/24 09:29 Dose: 10 mg Dextrose/Water (Dextrose 50% Syringe 50 Ml) 25 ml IVP PER PROTOCOL PRN; Protocol PRN Reason: Hypoglycemia Dextrose/Water (Dextrose 50% Syringe 50 Ml) 50 ml IVP PER PROTOCOL PRN; Protocol PRN Reason: Hypoglycemia Enoxaparin Sodium (Enoxaparin 40 Mg/0.4 Ml Syringe) 40 mg SQ DAILY [facility] Last Admin: 03/30/24 09:29 Dose: 40 mg Insulin Aspart (Insulin Aspart (Novolog) 100 Unit/Ml Vial) [address] [facility]; Protocol Last Admin: 03/30/24 17:56 Dose: Not Given Insulin Detemir (Insulin Detemir (Levemir) 100 Unit/Ml Syr) 15 unit SQ BID@0700,2100 [facility] Last Admin: 03/30/24 09:28 Dose: 15 unit Lisinopril (Lisinopril 2.5 Mg Tab) 2.5 mg PO DAILY [facility] Last Admin: 03/30/24 09:29 Dose: 2.5 mg Lorazepam (Lorazepam 0.5 Mg Tab) 0.5 mg PO BID [facility] Last Admin: 03/30/24 09:29 Dose: 0.5 mg Metformin HCl (Metformin 500 Mg Tab) 1,000 mg PO AC-BID [facility] Last Admin: 03/30/24 16:47 Dose: 1,000 mg Miscellaneous Information (Magnesium Replacement Protocol 1 Each Misc) 1 each MISCELLANE DAILY PRN; Protocol PRN Reason: Per Protocol Naloxone HCl (Naloxone 0.4 Mg/Ml 1 Ml Vial) 0.2 mg IV Q2M PRN PRN Reason: Opioid Reversal Ondansetron HCl (Ondansetron 4 Mg/2 Ml Vial) 4 mg IVP Q8HR PRN PRN Reason: Nausea And Vomiting Pantoprazole Sodium (Pantoprazole 40 Mg Tablet) 40 mg PO AC-BRKFST [facility] Last Admin: 03/30/24 09:29 Dose: 40 mg Petrolatum (Zinc Oxide Paste (Z-Guard) 1 Applic) 1 applic TOPICAL DAILY [facility]; Protocol Last Admin: 03/30/24 13:46 Dose: 1 applic Pioglitazone HCl (Pioglitazone 30 Mg Tab) 30 mg PO DAILY [facility] Last Admin: 03/30/24 09:29 Dose: 30 mg Sertraline HCl (Sertraline 25 Mg Tab) 25 mg PO DAILY [facility] Last Admin: 03/30/24 09:29 Dose: 25 mg Tamsulosin HCl (Tamsulosin 0.4 Mg Cap.Er.24h) 0.4 mg PO DAILY [facility] Last Admin: 03/30/24 09:29 Dose: 0.4 mg Social history: Patient currently staying at [facility]. Homeless nursing home. At the baseline independent with ADLs. Physical examination: VITAL SIGNS: 97.8, 86, 16, 126 x 80, 96% room air GENERAL:, Pinna recliner, but depressed EYES: Pupils equal. Conjunctiva finn l. HEENT: External appearance of nose and ears normal, oral cavity grossly normal. NECK: JVD not raised; masses not palpable. HEART: First and second heart sounds are normal; no edema. LUNGS: Respiratory rate normal; clear to auscultation. ABDOMEN: Soft, nontender, liver spleen not palpable, no masses palpable. PSYCH: Speaks only and monotone. Very low volume. withdrawn l. NEUROLOGICAL: [Cranial nerves grossly intact; no facial asymmetry, slow movement of limbs. Does ambulate to the bathroom INVESTIGATIONS, reviewed in the clinical context: March 27: Potassium 4.4 BUN 11.9 creatinine 0.6 Mar 21 2024: White count 7.1 hemoglobin 13.1 platelets 151 sodium 137 potassium 3.8 creatinine 0.63 CPK 3890 March 20: CPK 592 UA: Ketones 2+ Urine drug screen: Negative Assessment plan: -Schizoaffective disorder Being followed by psychiatry. Has a sitter.- -Major depressive disorder, recurrent Being followed by psychiatry -Acute rhabdomyolysis, secondary to fall: Resolved -Hyperlipidemia Lipitor-resume -Essential hypertension Resume lisinopril. -Diabetes mellitus type 2, chronically on insulin Actos metformin. Insulin. -BPH Flomax -Full code Seen by psychiatrist today. Option of inpatient treatment presented Past Medical History Past Medical History: Diabetes Mellitus, Hyperlipidemia, Hypertension Additional Past Medical History / Comment(s): bipolar, schizophrenia. History of Any Multi-Drug Resistant Organisms: None Reported Additional Past Surgical History / Comment(s): right shoulder Past Anesthesia/Blood Transfusion Reactions: No Reported Reaction Past Psychological History: No Psychological Hx Reported, Bipolar, Depression, Schizoaffective Disorder Smoking Status: Never smoker Past Alcohol Use History: None Reported Past Drug Use History: None Reported
[2024-03-30 20:23] LABS: Glucose,Whole Blood 175 mg/dL (70-110)
[2024-03-31 07:13] LABS: Glucose,Whole Blood 145 mg/dL (70-110)
[2024-03-31 07:37] LABS: African American GFR (CKD) >90 (>60 ml/min/1.73 sqM); Anion Gap 6 mmol/L; Blood Urea Nitrogen 17 mg/dL (9-20); Carbon Dioxide 25 mmol/L (22-30); Chloride 105 mmol/L (98-107); Glucose 134 mg/dL (74-99); Magnesium 1.7 mg/dL (1.6-2.3); Non-African American GFR(CKD) >90 (>60 ml/min/1.73 sqM); Potassium 4.4 mmol/L (3.5-5.1); Sodium 136 mmol/L (137-145)
[2024-03-31 12:07] LABS: Glucose,Whole Blood 195 mg/dL (70-110)
--- NOTE | 2024-03-31 16:38 | P.PN ---
Progress Note - Text Progress Note Date: 03/31/24 Chief Complaint: Elevated CPK These are the notes from our ER physician: This patient is a 53-year-old man who reportedly has history of mood disorder, schizophrenia, and previous catatonic episode. The patient arrives here as transfer from [facility]. He was reportedly sent there from what sounds like a rescue mission. It was reported me that the patient's brother had dropped the patient there and that after he was evaluated he was sent to the hospital. When I interviewed the patient, he states that he is feeling well. He is denying complaints when asked of pain, dyspnea, nausea. The patient paperwork from the other hospital states that they wanted him admitted to psychiatry as he has had previous similar episodes to this when his underlying psychiatric disease flares up. The patient reportedly had fallen a couple of days ago and then had been lying on the floor for an unknown period of time. At the other facility his CPK was found to be 1070. His workup included head CT reported to be negative for acute intracranial hemorrhage or fracture. The remainder of the patient's labs include normal CBC, chemistry is remarkable only for blood glucose of 160. Alcohol Tylenol and salicylates were negative. TSH was normal. Urine drug screen was negative. Patient himself does not give much of a history. He did eat some breakfast this morning. Has a sitter. Getting IV fluids for some rhabdomyolysis. Limited ans wering questions. At her baseline patient is independent. With ADLs. Psychiatry was sent from the ER regarding home medications 03/23/2024 Patient is seen and evaluated in follow-up today continues with sitter at the bedside for suicidal ideation. Patient evaluated by psych recommending inpatient psych unit transfer once medically stable. Patient is continued on IV hydration for elevated CK with concerns of acute rhabdomyolysis. Patient continues to report inability to ambulate and will have PT/OT therapy evaluate the patient. CK levels trending down. Per sitter at the bedside patient is eating. Patient is afebrile with no reported chest pain or shortness of breath. Denies any nausea or vomiting and patient also continues with Baltazar catheter at this time. 03/26/2024 Patient is seen this morning continues with sitter at the bedside with initial complaints of suicidal ideation. Patient has been evaluated by psych recommending medical psych facility for continued psychiatric evaluation and medical care. Patient was maintained on IV hydration and CK levels have improved and under 300. Patient continues to report he is unable to walk and has been evaluated by physical therapy recommend daily. Patient is tolerating oral intake with no reported nausea or vomiting. Patient denies any chest pain or shortness of breath. Patient unable to transfer here on 3 W. with social w ork following currently working on outpatient psychiatric facilities March 27, 2024: Laying in bed. Will answer questions slowly. Has a sitter. 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 Eating about 25% March 282023: Patient to sit up more in the chair. Eating some. Pending accepting facility for psychiatry. Baltazar was discontinued yesterday. Urinating well. March 29: Up in a chair. Eating. Able to get to the bathroom. Nurses did call the psychiatry unit and left a message for them to have the attending psychiatry evaluate the patient for possible discharge to psych unit./Otherwise March 30: Up in a recliner. Eating some. Walking with assistance. Seen by psychiatry. Diagnosis: Major depressive disorder severe recurrent. Now suggesting inpatient [facility] unit as an option. March 31: Up in a recliner. Did walk in the hallway. Informed psych unit to transfer the patient down there.-They currently do not have beds.. Patient still significantly withdrawn Active Medications Acetaminophen (Acetaminophen Tab 325 Mg Tab) 650 mg PO Q6HR PRN PRN Reason: Fever and/ or Mild Pain Last Admin: 03/29/24 02:55 Dose: 650 mg Atorvastatin Calcium (Atorvastatin 40 Mg Tab) 40 mg PO HS [facility] Last Admin: 03/30/24 20:22 Dose: 40 mg Buspirone HCl (Buspirone Hcl 10 Mg Tab) 10 mg PO BID [facility] Last Admin: 03/31/24 10:26 Dose: 10 mg Dextrose/Water (Dextrose 50% Syringe 50 Ml) 25 ml IVP PER PROTOCOL PRN; Protocol PRN Reason: Hypoglycemia Dextrose/Water (Dextrose 50% Syringe 50 Ml) 50 ml IVP PER PROTOCOL PRN; Protocol PRN Reason: Hypoglycemia Enoxaparin Sodium (Enoxaparin 40 Mg/0.4 Ml Syringe) 40 mg SQ DAILY [facility] Last Admin: 03/31/24 10:26 Dose: 40 mg Insulin Aspart (Insulin Aspart (Novolog) 100 Unit/Ml Vial) 0 unit SQ [facility]; Protocol Last Admin: 03/31/24 13:12 Dose: 2 unit Insulin Detemir (Insulin Detemir (Levemir) 100 Unit/Ml Syr) 15 unit SQ BID@0700,2100 [facility] Last Admin: 03/31/24 10:26 Dose: 15 unit Lisinopril (Lisinopril 2.5 Mg Tab) 2.5 mg PO DAILY [facility] Last Admin: 03/31/24 10:25 Dose: 2.5 mg Lorazepam (Lorazepam 0.5 Mg Tab) 0.5 mg PO BID [facility] Last Admin: 03/31/24 10:25 Dose: 0.5 mg Metformin HCl (Metformin 500 Mg Tab) 1,000 mg PO AC-BID [facility] Last Admin: 03/31/24 10:26 Dose: 1,000 mg Miscellaneous Information (Magnesium Replacement Protocol 1 Each Misc) 1 each MISCELLANE DAILY PRN; Protocol PRN Reason: Per Protocol Naloxone HCl (Naloxone 0.4 Mg/Ml 1 Ml Vial) 0.2 mg IV Q2M PRN PRN Reason: Opioid Reversal Ondansetron HCl (Ondansetron 4 Mg/2 Ml Vial) 4 mg IVP Q8HR PRN PRN Reason: Nausea And Vomiting Pantoprazole Sodium (Pantoprazole 40 Mg Tablet) 40 mg PO AC-BRKFST [facility] Last Admin: 03/31/24 10:26 Dose: 40 mg Petrolatum (Zinc Oxide Paste (Z-Guard) 1 Applic) 1 applic TOPICAL DAILY [facility]; Protocol Last Admin: 03/31/24 13:12 Dose: 1 applic Pioglitazone HCl (Pioglitazone 30 Mg Tab) 30 mg PO DAILY [facility] Last Admin: 03/31/24 10:25 Dose: 30 mg Sertraline HCl (Sertraline 25 Mg Tab) 25 mg PO DAILY [facility] Last Admin: 03/31/24 10:26 Dose: 25 mg Tamsulosin HCl (Tamsulosin 0.4 Mg Cap.Er.24h) 0.4 mg PO DAILY [facility] Last Admin: 03/31/24 10:26 Dose: 0.4 mg Social history: Patient currently staying at [facility]. Homeless nursing home. At the baseline independent with ADLs. Physical examination: VITAL SIGNS: 97.4, 101, 17, 109% 7, 98% room air GENERAL:, In a recliner with withdrawn EYES: Pupils equal. Conjunctiva finn l. HEENT: External appearance of nose and ears normal, oral cavity grossly normal. NECK: JVD not raised; masses not palpable. HEART: First and second heart sounds are normal; no edema. LUNGS: Respiratory rate normal; clear to auscultation. ABDOMEN: Soft, nontender, liver spleen not palpable, no masses palpable. PSYCH: Speaks only and monotone. Very low volume. withdrawn l. NEUROLOGICAL: [Cranial nerves grossly intact; no facial asymmetry, slow movement of limbs. Does ambulate to the bathroom INVESTIGATIONS, reviewed in the clinical context: March 31: Potassium 4.4 creatinine 0.57 March 27: Potassium 4.4 BUN 11.9 creatinine 0.6 Mar 21 2024: White count 7.1 hemoglobin 13.1 platelets 151 sodium 137 potassium 3.8 creat inine 0.63 CPK 3890 March 20: CPK 592 UA: Ketones 2+ Urine drug screen: Negative Assessment plan: -Schizoaffective disorder Being followed by psychiatry. Has a sitter.- -Major depressive disorder, recurrent Being followed by psychiatry Pending patient to be transferred to inpatient psych unit 3 W. -Acute rhabdomyolysis, secondary to fall: Resolved -Hyperlipidemia Lipitor-resume -Essential hypertension Resume lisinopril. -Diabetes mellitus type 2, chronically on insulin Actos metformin. Insulin. -BPH Flomax -Full code [facility]-vessel informed to transfer the patient. Currently beds not available Past Medical History Past Medical History: Diabetes Mellitus, Hyperlipidemia, Hypertension Additional Past Medical History / Comment(s): bipolar, schizophrenia. History of Any Multi-Drug Resistant Organisms: None Reported Additional Past Surgical History / Comment(s): right shoulder Past Anesthesia/Blood Transfusion Reactions: No Reported Reaction Past Psychological History: No Psychological Hx Reported, Bipolar, Depression, Schizoaffective Disorder Smoking Status: Never smoker Past Alcohol Use History: None Reported Past Drug Use History: None Reported
[2024-03-31 17:19] LABS: Glucose,Whole Blood 117 mg/dL (70-110)
[2024-03-31 20:50] LABS: Glucose,Whole Blood 150 mg/dL (70-110)
[2024-04-01 07:04] LABS: Glucose,Whole Blood 162 mg/dL (70-110)
[2024-04-01 12:25] LABS: Glucose,Whole Blood 172 mg/dL (70-110)
[2024-04-01 17:28] LABS: Glucose,Whole Blood 128 mg/dL (70-110)
--- NOTE | 2024-04-01 17:57 | P.PN ---
Progress Note - Text Progress Note Date: 04/01/24 Chief Complaint: Elevated CPK These are the notes from our ER physician: This patient is a 53-year-old man who reportedly has history of mood disorder, schizophrenia, and previous catatonic episode. The patient arrives here as transfer from [facility]. He was reportedly sent there from what sounds like a rescue mission. It was reported me that the patient's brother had dropped the patient there and that after he was evaluated he was sent to the hospital. When I interviewed the patient, he states that he is feeling well. He is denying complaints when asked of pain, dyspnea, nausea. The patient paperwork from the other hospital states that they wanted him admitted to psychiatry as he has had previous similar episodes to this when his underlying psychiatric disease flares up. The patient reportedly had fallen a couple of days ago and then had been lying on the floor for an unknown period of time. At the other facility his CPK was found to be 1070. His workup included head CT reported to be negative for acute intracranial hemorrhage or fracture. The remainder of the patient's labs include normal CBC, chemistry is remarkable only for blood glucose of 160. Alcohol Tylenol and salicylates were negative. TSH was normal. Urine drug screen was negative. Patient himself does not give much of a history. He did eat some breakfast this morning. Has a sitter. Getting IV fluids for some rhabdomyolysis. Limited ans wering questions. At her baseline patient is independent. With ADLs. Psychiatry was sent from the ER regarding home medications 03/23/2024 Patient is seen and evaluated in follow-up today continues with sitter at the bedside for suicidal ideation. Patient evaluated by psych recommending inpatient psych unit transfer once medically stable. Patient is continued on IV hydration for elevated CK with concerns of acute rhabdomyolysis. Patient continues to report inability to ambulate and will have PT/OT therapy evaluate the patient. CK levels trending down. Per sitter at the bedside patient is eating. Patient is afebrile with no reported chest pain or shortness of breath. Denies any nausea or vomiting and patient also continues with Baltazar catheter at this time. 03/26/2024 Patient is seen this morning continues with sitter at the bedside with initial complaints of suicidal ideation. Patient has been evaluated by psych recommending medical psych facility for continued psychiatric evaluation and medical care. Patient was maintained on IV hydration and CK levels have improved and under 300. Patient continues to report he is unable to walk and has been evaluated by physical therapy recommend daily. Patient is tolerating oral intake with no reported nausea or vomiting. Patient denies any chest pain or shortness of breath. Patient unable to transfer here on 3 W. with social w leidyk following currently working on outpatient psychiatric facilities March 27, 2024: Laying in bed. Will answer questions slowly. Has a sitter. mission worker looking into psych facility placement. Eating about 25% March 282023: Patient to sit up more in the chair. Eating some. Pending accepting facility for psychiatry. Baltazar was discontinued yesterday. Urinating well. March 29: Up in a chair. Eating. Able to get to the bathroom. Nurses did call the psychiatry unit and left a message for them to have the attending psychiatry evaluate the patient for possible discharge to psych unit./Otherwise March 30: Up in a recliner. Eating some. Walking with assistance. Seen by psychiatry. Diagnosis: Major depressive disorder severe recurrent. Now suggesting inpatient MedPsych unit as an option. March 31: Up in a recliner. Did walk in the hallway. Informed psych unit to transfer the patient down there.-They currently do not have beds.. Patient still significantly withdrawn April 01: Patient walked around the room yesterday with supervision several times.-I got this information from nurse Dania who son was the sitter yesterday. Patient walked 75 feet with a rolling walker-with PT. Active Medications Acetaminophen (Acetaminophen Tab 325 Mg Tab) 650 mg PO Q6HR PRN PRN Reason: Fever and/ or Mild Pain Last Admin: 03/29/24 02:55 Dose: 650 mg Atorvastatin Calcium (Atorvastatin 40 Mg Tab) 40 mg PO HS [facility] Last Admin: 03/31/24 22:10 Dose: 40 mg Buspirone HCl (Buspirone Hcl 10 Mg Tab) 10 mg PO BID [facility] Last Admin: 04/01/24 08:47 Dose: 10 mg Dextrose/Water (Dextrose 50% Syringe 50 Ml) 25 ml IVP PER PROTOCOL PRN; Protocol PRN Reason: Hypoglycemia Dextrose/Water (Dextrose 50% Syringe 50 Ml) 50 ml IVP PER PROTOCOL PRN; Protocol PRN Reason: Hypoglycemia Enoxaparin Sodium (Enoxaparin 40 Mg/0.4 Ml Syringe) 40 mg SQ DAILY [facility] Last Admin: 04/01/24 08:47 Dose: 40 mg Insulin Aspart (Insulin Aspart (Novolog) 100 Unit/Ml Vial) 0 unit SQ ACHS [facility]; Protocol Last Admin: 04/01/24 17:29 Dose: Not Given Insulin Detemir (Insulin Detemir (Levemir) 100 Unit/Ml Syr) 15 unit SQ BID@0700,2100 [facility] Last Admin: 04/01/24 08:48 Dose: 15 unit Lisinopril (Lisinopril 2.5 Mg Tab) 2.5 mg PO DAILY [facility] Last Admin: 04/01/24 08:47 Dose: 2.5 mg Lorazepam (Lorazepam 0.5 Mg Tab) 0.5 mg PO BID [facility] Last Admin: 04/01/24 08:47 Dose: 0.5 mg Metformin HCl (Metformin 500 Mg Tab) 1,000 mg PO AC-BID [facility] Last Admin: 04/01/24 17:44 Dose: 1,000 mg Miscellaneous Information (Magnesium Replacement Protocol 1 Each Misc) 1 each MISCELLANE DAILY PRN; Protocol PRN Reason: Per Protocol Naloxone HCl (Naloxone 0.4 Mg/Ml 1 Ml Vial) 0.2 mg IV Q2M PRN PRN Reason: Opioid Reversal Ondansetron HCl (Ondansetron 4 Mg/2 Ml Vial) 4 mg IVP Q8HR PRN PRN Reason: Nausea And Vomiting Pantoprazole Sodium (Pantoprazole 40 Mg Tablet) 40 mg PO AC-BRKFST [facility] Last Admin: 04/01/24 08:47 Dose: 40 mg Petrolatum (Zinc Oxide Paste (Z-Guard) 1 Applic) 1 applic TOPICAL DAILY [facility]; Protocol Last Admin: 04/01/24 13:06 Dose: 1 applic Pioglitazone HCl (Pioglitazone 30 Mg Tab) 30 mg PO DAILY [facility] Last Admin: 04/01/24 08:47 Dose: 30 mg Sertraline HCl (Sertraline 25 Mg Tab) 25 mg PO DAILY [facility] Last Admin: 04/01/24 08:47 Dose: 25 mg Tamsulosin HCl (Tamsulosin 0.4 Mg Cap.Er.24h) 0.4 mg PO DAILY [facility] Last Admin: 04/01/24 08:47 Dose: 0.4 mg Social history: Patient currently staying at [facility] [place]. Homeless longterm. At the baseline independent with ADLs. Physical examination: VITAL SIGNS: 7.4, 101, 16, 1 one 8 x 76, 97% room air GENERAL:, In bed withdrawn EYES: Pupils equal. Conjunctiva finn l. HEENT: External appearance of nose and ears normal, oral cavity grossly normal. NECK: JVD not raised; masses not palpable. HEART: First and second heart sounds are normal; no edema. LUNGS: Respiratory rate normal; clear to auscultation. ABDOMEN: Soft, nontender, liver spleen not palpable, no masses palpable. PSYCH: Speaks only and monotone. Very low volume. withdrawn l. NEUROLOGICAL: [Cranial nerves grossly intact; no facial asymmetry, slow movement of limbs. Does ambulate to the bathroom INVESTIGATIONS, reviewed in the clinical context: March 31: Potassium 4.4 creatinine 0.57 March 27: Potassium 4.4 BUN 11.9 creatinine 0.6 Mar 21 2024: White count 7.1 hemoglobin 13.1 platelets 151 sodium 137 potassium 3.8 c reatinine 0.63 CPK 3890 March 20: CPK 592 UA: Ketones 2+ Urine drug screen: Negative Assessment plan: -Schizoaffective disorder Being followed by psychiatry. Has a sitter.- -Major depressive disorder, severe recurrent Being followed by psychiatry -Acute rhabdomyolysis, secondary to fall: Resolved -Gait dysfunction Using a walker. Walk 75 feet -Hyperlipidemia Lipitor-resume -Essential hypertension Resume lisinopril. -Diabetes mellitus type 2, chronically on insulin Actos metformin. Insulin. -BPH Flomax -Full code Discussed with Dr. Dickerson medical officer. Looking at different options for disposition. Per psychiatry patient actively needs treatment for his major depression which is severe. Will evaluate further. Past Medical History Past Medical History: Diabetes Mellitus, Hyperlipidemia, Hypertension Additional Past Medical History / Comment(s): bipolar, schizophrenia. History of Any Multi-Drug Resistant Organisms: None Reported Additional Past Surgical History / Comment(s): right shoulder Past Anesthesia/Blood Transfusion Reactions: No Reported Reaction Past Psychological History: No Psychological Hx Reported, Bipolar, Depression, Schizoaffective Disorder Smoking Status: Never smoker Past Alcohol Use History: None Reported Past Drug Use History: None Reported
[2024-04-01 20:09] LABS: Glucose,Whole Blood 150 mg/dL (70-110)
--- NOTE | 2024-04-01 21:27 | P.PN ---
Progress Note - Text Progress Note Date: 04/01/24 Follow-up Mediation Review Chief Complaint: I am till very depressed Subjective: The patient noted continues to be very depressed. He still rates his depression at 10 on VAS. The patient feels that his muscle strength has improved. He is eating more and his voice is better. The patient still not able to walk independently. He needs assistance. He also requires continuation of physical therapy to regain his independent mobility. At present his severely depressed. He needs in-patient treatment to stabilize his MS. He also needs physical therapy. Unfortunately, both services are not possible at our [facility]. Leading questions: The patient admitted to Depression and Anxiety. Denied SI or HI. Denied symptoms consistent with psychosis Sleep and Appetite: Appetite better. Sleep poor. Objective- MSE: Alert and attentive. Orientation times three. Dressed and Groomed: Appropriately. Pleasant and cooperative. Psychomotor Activity: Severe psychomotor retardation. Speech: low toned but improved from before, normal in quality, and under productive. The patient responds to closed ended question by one or two sentences. He does not initiate conversation. Mood: Depressed. Affect: Flat SI or HI: None. Perceptual disturbance: None. Thought Content: No paranoia or other delusional thinking noted. Thought Process: Normal. Cognition: Intact Judgment and Insight: Poor. AIMS: Normal. Diagnosis: Major depressive disorder severe, recurrent. Plan and Recommendations: D/C sitter for suicide precautions. Continue current Medications. The patient will need to be either treated on an in-patient med-psych. unit or be could be considered for placement in a supervised structured subacute rehab facility, provided he get intensive psychiatric follow-up along with physical therapy.
[2024-04-02 07:26] LABS: Glucose,Whole Blood 137 mg/dL (70-110)
[2024-04-02 12:18] LABS: Glucose,Whole Blood 155 mg/dL (70-110)
--- NOTE | 2024-04-02 16:04 | P.PN ---
Progress Note - Text Progress Note Date: 04/02/24 Chief Complaint: Elevated CPK These are the notes from our ER physician: This patient is a 53-year-old man who reportedly has history of mood disorder, schizophrenia, and previous catatonic episode. The patient arrives here as transfer from [facility]. He was reportedly sent there from what sounds like a rescue mission. It was reported me that the patient's brother had dropped the patient there and that after he was evaluated he was sent to the hospital. When I interviewed the patient, he states that he is feeling well. He is denying complaints when asked of pain, dyspnea, nausea. The patient paperwork from the other hospital states that they wanted him admitted to psychiatry as he has had previous similar episodes to this when his underlying psychiatric disease flares up. The patient reportedly had fallen a couple of days ago and then had been lying on the floor for an unknown period of time. At the other facility his CPK was found to be 1070. His workup included head CT reported to be negative for acute intracranial hemorrhage or fracture. The remainder of the patient's labs include normal CBC, chemistry is remarkable only for blood glucose of 160. Alcohol Tylenol and salicylates were negative. TSH was normal. Urine drug screen was negative. Patient himself does not give much of a history. He did eat some breakfast this morning. Has a sitter. Getting IV fluids for some rhabdomyolysis. Limited ans wering questions. At her baseline patient is independent. With ADLs. Psychiatry was sent from the ER regarding home medications 03/23/2024 Patient is seen and evaluated in follow-up today continues with sitter at the bedside for suicidal ideation. Patient evaluated by psych recommending inpatient psych unit transfer once medically stable. Patient is continued on IV hydration for elevated CK with concerns of acute rhabdomyolysis. Patient continues to report inability to ambulate and will have PT/OT therapy evaluate the patient. CK levels trending down. Per sitter at the bedside patient is eating. Patient is afebrile with no reported chest pain or shortness of breath. Denies any nausea or vomiting and patient also continues with Baltazar catheter at this time. 03/26/2024 Patient is seen this morning continues with sitter at the bedside with initial complaints of suicidal ideation. Patient has been evaluated by psych recommending medical psych facility for continued psychiatric evaluation and medical care. Patient was maintained on IV hydration and CK levels have improved and under 300. Patient continues to report he is unable to walk and has been evaluated by physical therapy recommend daily. Patient is tolerating oral intake with no reported nausea or vomiting. Patient denies any chest pain or shortness of breath. Patient unable to transfer here on 3 W. with social w ork following currently working on outpatient psychiatric facilities March 27, 2024: Laying in bed. Will answer questions slowly. Has a sitter. cleaner touch up worker looking into psych facility placement. Eating about 25% March 282023: Patient to sit up more in the chair. Eating some. Pending accepting facility for psychiatry. Baltazar was discontinued yesterday. Urinating well. March 29: Up in a chair. Eating. Able to get to the bathroom. Nurses did call the psychiatry unit and left a message for them to have the attending psychiatry evaluate the patient for possible discharge to psych unit./Otherwise March 30: Up in a recliner. Eating some. Walking with assistance. Seen by psychiatry. Diagnosis: Major depressive disorder severe recurrent. Now suggesting inpatient MedPsych unit as an option. March 31: Up in a recliner. Did walk in the hallway. Informed psych unit to transfer the patient down there.-They currently do not have beds.. Patient still significantly withdrawn April 01: Patient walked around the room yesterday with supervision several times.-I got this information from nurse Dania who son was the sitter yesterday. Patient walked 75 feet with a rolling walker-with PT. April 02: I walked with the patient with a walker he did about 150 feet. Taking his medications. Tolerating diet. Will change Levemir to 22units nightly Active Medications Acetaminophen (Acetaminophen Tab 325 Mg Tab) 650 mg PO Q6HR PRN PRN Reason: Fever and/ or Mild Pain Last Admin: 03/29/24 02:55 Dose: 650 mg Atorvastatin Calcium (Atorvastatin 40 Mg Tab) 40 mg PO HS [facility] Last Admin: 04/01/24 20:28 Dose: 40 mg Buspirone HCl (Buspirone Hcl 10 Mg Tab) 10 mg PO BID [facility] Last Admin: 04/02/24 08:50 Dose: 10 mg Dextrose/Water (Dextrose 50% Syringe 50 Ml) 25 ml IVP PER PROTOCOL PRN; Protocol PRN Reason: Hypoglycemia Dextrose/Water (Dextrose 50% Syringe 50 Ml) 50 ml IVP PER PROTOCOL PRN; Protocol PRN Reason: Hypoglycemia Enoxaparin Sodium (Enoxaparin 40 Mg/0.4 Ml Syringe) 40 mg SQ DAILY [facility] Last Admin: 04/02/24 08:50 Dose: 40 mg Insulin Aspart (Insulin Aspart (Novolog) 100 Unit/Ml Vial) 0 unit SQ ACHS [facility]; Protocol Last Admin: 04/02/24 13:01 Dose: 2 unit Insulin Detemir (Insulin Detemir (Levemir) 100 Unit/Ml Syr) 15 unit SQ BID@0700,2100 [facility] Last Admin: 04/02/24 08:50 Dose: 15 unit Lisinopril (Lisinopril 2.5 Mg Tab) 2.5 mg PO DAILY [facility] Last Admin: 04/02/24 08:50 Dose: 2.5 mg Lorazepam (Lorazepam 0.5 Mg Tab) 0.5 mg PO BID [facility] Last Admin: 04/02/24 08:50 Dose: 0.5 mg Metformin HCl (Metformin 500 Mg Tab) 1,000 mg PO AC-BID [facility] Last Admin: 04/02/24 08:50 Dose: 1,000 mg Miscellaneous Information (Magnesium Replacement Protocol 1 Each Misc) 1 each MISCELLANE DAILY PRN; Protocol PRN Reason: Per Protocol Naloxone HCl (Naloxone 0.4 Mg/Ml 1 Ml Vial) 0.2 mg IV Q2M PRN PRN Reason: Opioid Reversal Ondansetron HCl (Ondansetron 4 Mg/2 Ml Vial) 4 mg IVP Q8HR PRN PRN Reason: Nausea And Vomiting Pantoprazole Sodium (Pantoprazole 40 Mg Tablet) 40 mg PO AC-BRKFST [facility] Last Admin: 04/02/24 08:50 Dose: 40 mg Petrolatum (Zinc Oxide Paste (Z-Guard) 1 Applic) 1 applic TOPICAL DAILY [facility]; Protocol Last Admin: 04/02/24 08:53 Dose: 1 applic Pioglitazone HCl (Pioglitazone 30 Mg Tab) 30 mg PO DAILY [facility] Last Admin: 04/02/24 08:50 Dose: 30 mg Sertraline HCl (Sertraline 25 Mg Tab) 25 mg PO DAILY [facility] Last Admin: 04/02/24 08:50 Dose: 25 mg Tamsulosin HCl (Tamsulosin 0.4 Mg Cap.Er.24h) 0.4 mg PO DAILY [facility] Last Admin: 04/02/24 08:50 Dose: 0.4 mg Social history: Patient currently staying at [facility] [place]. Homeless [facility]ci. At the baseline independent with ADLs. Physical examination: VITAL SIGNS: 97.4, 110, 16, 1 one 4 x 76, 98% room air GENERAL:, Friable EYES: Pupils equal. Conjunctiva finn l. HEENT: External appearance of nose and ears normal, oral cavity grossly normal. NECK: JVD not raised; masses not palpable. HEART: First and second heart sounds are normal; no edema. LUNGS: Respiratory rate normal; clear to auscultation. ABDOMEN: Soft, nontender, liver spleen not palpable, no masses palpable. PSYCH: Speaks only and monotone. Very low volume. withdrawn l. NEUROLOGICAL: [Cranial nerves grossly intact; no facial asymmetry, slow movement of limbs. Does ambulate to the bathroom INVESTIGATIONS, reviewed in the clinical context: March 31: Potassium 4.4 creatinine 0.57 March 27: Potassium 4.4 BUN 11.9 creatinine 0.6 Mar 21 2024: White count 7.1 hemoglobin 13.1 platelets 151 sodium 137 potassium 3.8 creatinine 0.63 CPK 3890 March 20: CPK 592 UA: Ketones 2+ Urine drug screen: Negative Assessment plan: -Schizoaffective disorder Being followed by psychiatry. Has a sitter.- -Major depressive disorder, severe recurrent Being followed by psychiatry -Acute rhabdomyolysis, secondary to fall: Resolved -Gait dysfunction Using a walker. Walk 150 feet today -Hyperlipidemia Lipitor-resume -Essential hypertension Resume lisinopril. -Diabetes mellitus type 2, chronically on insulin Actos metformin. Change Levemir to 22 units at night -BPH Flomax -Full code Continue with PT OT. Change Levemir to 22 units at night Past Medical History Past Medical History: Diabetes Mellitus, Hyperlipidemia, Hypertension Additional Past Medical History / Comment(s): bipolar, schizophrenia. History of Any Multi-Drug Resistant Organisms: None Reported Additional Past Surgical History / Comment(s): right shoulder Past Anesthesia/Blood Transfusion Reactions: No Reported Reaction Past Psychological History: No Psychological Hx Reported, Bipolar, Depression, Schizoaffective Disorder Smoking Status: Never smoker Past Alcohol Use History: None Reported Past Drug Use History: None Reported
[2024-04-02 17:19] LABS: Glucose,Whole Blood 146 mg/dL (70-110)
[2024-04-02 20:29] LABS: Glucose,Whole Blood 154 mg/dL (70-110)
[2024-04-02] MEDS: INSULIN DETEMIR (LEVEMIR) 100 UNIT/ML SYR SQ SCH (20:41)
[2024-04-03 07:12] LABS: Glucose,Whole Blood 167 mg/dL (70-110)
[2024-04-03 12:05] LABS: Glucose,Whole Blood 139 mg/dL (70-110)
[2024-04-03 17:08] LABS: Glucose,Whole Blood 148 mg/dL (70-110)
[2024-04-03 20:16] LABS: Glucose,Whole Blood 150 mg/dL (70-110)
--- NOTE | 2024-04-03 20:20 | P.PN ---
Progress Note - Text Progress Note Date: 04/03/24 Chief Complaint: Elevated CPK These are the notes from our ER physician: This patient is a 53-year-old man who reportedly has history of mood disorder, schizophrenia, and previous catatonic episode. The patient arrives here as transfer from [facility]. He was reportedly sent there from what sounds like a rescue mission. It was reported me that the patient's brother had dropped the patient there and that after he was evaluated he was sent to the hospital. When I interviewed the patient, he states that he is feeling well. He is denying complaints when asked of pain, dyspnea, nausea. The patient paperwork from the other hospital states that they wanted him admitted to psychiatry as he has had previous similar episodes to this when his underlying psychiatric disease flares up. The patient reportedly had fallen a couple of days ago and then had been lying on the floor for an unknown period of time. At the other facility his CPK was found to be 1070. His workup included head CT reported to be negative for acute intracranial hemorrhage or fracture. The remainder of the patient's labs include normal CBC, chemistry is remarkable only for blood glucose of 160. Alcohol Tylenol and salicylates were negative. TSH was normal. Urine drug screen was negative. Patient himself does not give much of a history. He did eat some breakfast this morning. Has a sitter. Getting IV fluids for some rhabdomyolysis. Limited ans wering questions. At her baseline patient is independent. With ADLs. Psychiatry was sent from the ER regarding home medications 03/23/2024 Patient is seen and evaluated in follow-up today continues with sitter at the bedside for suicidal ideation. Patient evaluated by psych recommending inpatient psych unit transfer once medically stable. Patient is continued on IV hydration for elevated CK with concerns of acute rhabdomyolysis. Patient continues to report inability to ambulate and will have PT/OT therapy evaluate the patient. CK levels trending down. Per sitter at the bedside patient is eating. Patient is afebrile with no reported chest pain or shortness of breath. Denies any nausea or vomiting and patient also continues with Baltazar catheter at this time. 03/26/2024 Patient is seen this morning continues with sitter at the bedside with initial complaints of suicidal ideation. Patient has been evaluated by psych recommending medical psych facility for continued psychiatric evaluation and medical care. Patient was maintained on IV hydration and CK levels have improved and under 300. Patient continues to report he is unable to walk and has been evaluated by physical therapy recommend daily. Patient is tolerating oral intake with no reported nausea or vomiting. Patient denies any chest pain or shortness of breath. Patient unable to transfer here on 3 W. with social w ork following currently working on outpatient psychiatric facilities March 27, 2024: Laying in bed. Will answer questions slowly. Has a sitter. broke worker looking into psych facility placement. Eating about 25% March 282023: Patient to sit up more in the chair. Eating some. Pending accepting facility for psychiatry. Baltazar was discontinued yesterday. Urinating well. March 29: Up in a chair. Eating. Able to get to the bathroom. Nurses did call the psychiatry unit and left a message for them to have the attending psychiatry evaluate the patient for possible discharge to psych unit./Otherwise March 30: Up in a recliner. Eating some. Walking with assistance. Seen by psychiatry. Diagnosis: Major depressive disorder severe recurrent. Now suggesting inpatient MedPsych unit as an option. March 31: Up in a recliner. Did walk in the hallway. Informed psych unit to transfer the patient down there.-They currently do not have beds.. Patient still significantly withdrawn April 01: Patient walked around the room yesterday with supervision several times.-I got this information from nurse Dania who son was the sitter yesterday. Patient walked 75 feet with a rolling walker-with PT. April 02: I walked with the patient with a walker he did about 150 feet. Taking his medications. Tolerating diet. Will change Levemir to 22units nightly April 03: Spoke to [facility] physical therapy. Patient able to get out of bed independently and use the walker independently. Will try to get the patient to 3 W. unit. Active Medications Acetaminophen (Acetaminophen Tab 325 Mg Tab) 650 mg PO Q6HR PRN PRN Reason: Fever and/ or Mild Pain Last Admin: 03/29/24 02:55 Dose: 650 mg Atorvastatin Calcium (Atorvastatin 40 Mg Tab) 40 mg PO HS [facility] Last Admin: 04/02/24 20:41 Dose: 40 mg Buspirone HCl (Buspirone Hcl 10 Mg Tab) 10 mg PO BID [facility] Last Admin: 04/03/24 09:10 Dose: 10 mg Dextrose/Water (Dextrose 50% Syringe 50 Ml) 25 ml IVP PER PROTOCOL PRN; Protocol PRN Reason: Hypoglycemia Dextrose/Water (Dextrose 50% Syringe 50 Ml) 50 ml IVP PER PROTOCOL PRN; Protocol PRN Reason: Hypoglycemia Enoxaparin Sodium (Enoxaparin 40 Mg/0.4 Ml Syringe) 40 mg SQ DAILY [facility] Last Admin: 04/03/24 09:10 Dose: 40 mg Insulin Aspart (Insulin Aspart (Novolog) 100 Unit/Ml Vial) 0 unit SQ ACHS [facility]; Protocol Last Admin: 04/03/24 17:09 Dose: Not Given Insulin Detemir (Insulin Detemir (Levemir) 100 Unit/Ml Syr) 22 unit SQ HS [facility] Last Admin: 04/02/24 20:41 Dose: 22 unit Lisinopril (Lisinopril 2.5 Mg Tab) 2.5 mg PO DAILY [facility] Last Admin: 04/03/24 09:10 Dose: 2.5 mg Lorazepam (Lorazepam 0.5 Mg Tab) 0.5 mg PO BID [facility] Last Admin: 04/03/24 09:10 Dose: 0.5 mg Metformin HCl (Metformin 500 Mg Tab) 1,000 mg PO AC-BID [facility] Last Admin: 04/03/24 17:34 Dose: 1,000 mg Miscellaneous Information (Magnesium Replacement Protocol 1 Each Misc) 1 each MISCELLANE DAILY PRN; Protocol PRN Reason: Per Protocol Naloxone HCl (Naloxone 0.4 Mg/Ml 1 Ml Vial) 0.2 mg IV Q2M PRN PRN Reason: Opioid Reversal Ondansetron HCl (Ondansetron 4 Mg/2 Ml Vial) 4 mg IVP Q8HR PRN PRN Reason: Nausea And Vomiting Pantoprazole Sodium (Pantoprazole 40 Mg Tablet) 40 mg PO AC-BRKFST [facility] Last Admin: 04/03/24 09:10 Dose: 40 mg Petrolatum (Zinc Oxide Paste (Z-Guard) 1 Applic) 1 applic TOPICAL DAILY [facility]; Protocol Last Admin: 04/03/24 09:13 Dose: 1 applic Pioglitazone HCl (Pioglitazone 30 Mg Tab) 30 mg PO DAILY [facility] Last Admin: 04/03/24 09:10 Dose: 30 mg Sertraline HCl (Sertraline 25 Mg Tab) 25 mg PO DAILY [facility] Last Admin: 04/03/24 09:10 Dose: 25 mg Tamsulosin HCl (Tamsulosin 0.4 Mg Cap.Er.24h) 0.4 mg PO DAILY [facility] Last Admin: 04/03/24 09:10 Dose: 0.4 mg Social history: Patient currently staying at [facility]. Homeless intermediate. At the baseline independent with ADLs. Physical examination: VITAL SIGNS: 97.7, 99, 17, 110/72, 97% room air GENERAL:, Up in a recliner comfortable EYES: Pupils equal. Conjunctiva finn l. HEENT: External appearance of nose and ears normal, oral cavity grossly normal. NECK: JVD not raised; masses not palpable. HEART: First and second heart sounds are normal; no edema. LUNGS: Respiratory rate normal; clear to auscultation. ABDOMEN: Soft, nontender, liver spleen not palpable, no masses palpable. PSYCH: Speaks only and monotone. Very low volume. withdrawn l. NEUROLOGICAL: [Cranial nerves grossly intact; no facial asymmetry, slow movement of limbs. Does ambulate to the bathroom INVESTIGATIONS, reviewed in the clinical context: March 31: Potassium 4.4 creatinine 0.57 March 27: Potassium 4.4 BUN 11.9 creatinine 0.6 Mar 21 2024: White count 7.1 hemoglobin 13.1 platelets 151 sodium 137 potassium 3.8 creatinine 0.63 CPK 3890 March 20: CPK 592 UA: Ketones 2+ Urine drug screen: Negative Assessment plan: -Schizoaffective disorder Being followed by psychiatry. Has a sitter.- -Major depressive disorder, severe recurrent Being followed by psychiatry -Acute rhabdomyolysis, secondary to fall: Resolved -Gait dysfunction Using a walker. Walk 150 feet today -Hyperlipidemia Lipitor-resume -Essential hypertension Resume lisinopril. -Diabetes mellitus type 2, chronically on insulin Actos metformin. Change Levemir to 22 units at night -BPH Flomax -Full code Continue current treatment plan. Medically stable to be transferred to [facility]. Past Medical History Past Medical History: Diabetes Mellitus, Hyperlipidemia, Hypertension Additional Past Medical History / Comment(s): bipolar, schizophrenia. History of Any Multi-Drug Resistant Organisms: None Reported Additional Past Surgical History / Comment(s): right shoulder Past Anesthesia/Blood Transfusion Reactions: No Reported Reaction Past Psychological History: No Psychological Hx Reported, Bipolar, Depression, Schizoaffective Disorder Smoking Status: Never smoker Past Alcohol Use History: None Reported Past Drug Use History: None Reported
[2024-04-04 07:06] LABS: Glucose,Whole Blood 141 mg/dL (70-110)
[2024-04-04 11:40] LABS: Glucose,Whole Blood 173 mg/dL (70-110)
--- NOTE | 2024-04-04 12:57 | P.DS ---
Providers Date of admission: 03/21/24 10:00 Expected date of discharge: 04/04/24 Attending physician: Herrera Murillo Consults: 03/20/24 21:51 Consult Physician Routine Consulting Provider: Austen Raza Consult Reason/Comments: psychosis Do you want consulting provider notified?: Yes 03/24/24 16:58 Consult Physician Routine Consulting Provider: Austen Raza Consult Reason/Comments: catatonia, possible need for psych, address ativan challange Do you want consulting provider notified?: Already Contacted 03/31/24 15:37 Consult Physician Routine Consulting Provider: Austen Raza Consult Reason/Comments: Psychosis Do you want consulting provider notified?: Yes Primary care physician: [facility] Course: Chief Complaint: Elevated CPK These are the notes from our ER physician: This patient is a 53-year-old man who reportedly has history of mood disorder, schizophrenia, and previous catatonic episode. The patient arrives here as transfer from [facility]. He was reportedly sent there from what sounds like a rescue mission. It was reported me that the patient's brother had dropped the patient there and that after he was evaluated he was sent to the hospital. When I interviewed the patient, he states that he is feeling well. He is denying complaints when asked of pain, dyspnea, nausea. The patient paperwork from the other hospital states that they wanted him admitted to psychiatry as he has had previous similar episodes to this when his underlying psychiatric disease flares up. The patient reportedly had fallen a couple of days ago and then had been lying on the floor for an unknown period of time. At the other facility his CPK was found to be 1070. His workup included head CT reported to be negative for acute intracranial hemorrhage or fracture. The remainder of the patient's labs include normal CBC, chemistry is remarkable only for blood glucose of 160. Alcohol Tylenol and salicylates were negative. TSH was normal. Urine drug screen was negative. Patient himself does not give much of a history. He did eat some breakfast this morning. Has a sitter. Getting IV fluids for some rhabdomyolysis. Limited answering questions. At her baseline patient is independent. With ADLs. Psychiatry was sent from the ER regarding home medications 03/23/2024 Patient is seen and evaluated in follow-up today continues with sitter at the bedside for suicidal ideation. Patient evaluated by psych recommending inpatient psych unit transfer once medically stable. Patient is continued on IV hydration for elevated CK with concerns of acute rhabdomyolysis. Patient continues to report inability to ambulate and will have PT/OT therapy evaluate the patient. CK levels trending down. Per sitter at the bedside patient is eating. Patient is afebrile with no reported chest pain or shortness of breath. Denies any nausea or vomiting and patient also continues with Baltazar catheter at this time. 03/26/2024 Patient is seen this morning continues with sitter at the bedside with initial complaints of suicidal ideation. Patient has been evaluated by psych recommending medical psych facility for continued psychiatric evaluation and medical care. Patient was maintained on IV hydration and CK levels have improved and under 300. Patient continues to report he is unable to walk and has been evaluated by physical therapy recommend daily. Patient is tolerating oral intake with no reported nausea or vomiting. Patient denies any chest pain or shortness of breath. Patient unable to transfer here on 3 W. with social work following currently working on outpatient psychiatric facilities March 27, 2024: Laying in bed. Will answer questions slowly. Has a sitter. used car make ready worker looking into psych facility placement. Eating about 25% March 282023: Patient to sit up more in the chair. Eating some. Pending accepting facility for psychiatry. Baltazar was discontinued yesterday. Urinating well. March 29: Up in a chair. Eating. Able to get to the bathroom. Nurses did call the psychiatry unit and left a message for them to have the attending psychiatry evaluate the patient for possible discharge to psych unit./Otherwise March 30: Up in a recliner. Eating some. Walking with assistance. Seen by psychiatry. Diagnosis: Major depressive disorder severe recurrent. Now suggesting inpatient MedPsych unit as an option. March 31: Up in a recliner. Did walk in the hallway. Informed psych unit to transfer the patient down there.-They currently do not have beds.. Patient still significantly withdrawn April 01: Patient walked around the room yesterday with supervision several times.-I got this information from nurse Dania who son was the sitter yesterday. Patient walked 75 feet with a rolling walker-with PT. April 02: I walked with the patient with a walker he did about 150 feet. Taking his medications. Tolerating diet. Will change Levemir to 22units nightly April 03: Spoke to physical therapy. Patient able to get out of bed independently and use the walker independently. Will try to get the patient to 3 W. unit. April 04: Lying in bed. Withdrawn. Patient accepted at [facility]. Spoke to social science professor Allyson. Patient certificate filled out. Medications reviewed per psychiatry. Discharge planning more than 35 minutes Social history: Patient currently staying at [facility]. Homeless [facility]. At the baseline independent with ADLs. Physical examination: VITAL SIGNS: 97.6, 95, 14, 1 one 2 x 75, 96% room air GENERAL:, Reclining in bed EYES: Pupils equal. Conjunctiva finn l. HEENT: External appearance of nose and ears normal, oral cavity grossly normal. NECK: JVD not raised; masses not palpable. HEART: First and second heart sounds are normal; no edema. LUNGS: Respiratory rate normal; clear to auscultation. ABDOMEN: Soft, nontender, liver spleen not palpable, no masses palpable. PSYCH: Speaks only and monotone. Very low volume. withdrawn l. NEUROLOGICAL: [Cranial nerves grossly intact; no facial asymmetry, slow movement of limbs. Does ambulate to the bathroom INVESTIGATIONS, reviewed in the clinical context: March 31: Potassium 4.4 creatinine 0.57 March 27: Potassium 4.4 BUN 11.9 creatinine 0.6 Mar 21 2024: White count 7.1 hemoglobin 13.1 platelets 151 sodium 137 potassium 3.8 creatinine 0.63 CPK 3890 March 20: CPK 592 UA: Ketones 2+ Urine drug screen: Negative Assessment plan: -Schizoaffective disorder Being followed by psychiatry. Has a sitter.- -Major depressive disorder, severe recurrent Being followed by psychiatry -Acute rhabdomyolysis, secondary to fall: Resolved -Gait dysfunction Using a walker. Able to get out of bed and walk with a walker -Hyperlipidemia Lipitor- -Essential hypertension lisinopril. -Diabetes mellitus type 2, chronically on insulin Actos metformin. Levemir to 22 units at night -BPH Flomax -Full code Disposition: Inpatient unit at [facility]. Past Medical History Past Medical History: Diabetes Mellitus, Hyperlipidemia, Hypertension Additional Past Medical History / Comment(s): bipolar, schizophrenia. History of Any Multi-Drug Resistant Organisms: None Reported Additional Past Surgical History / Comment(s): right shoulder Past Anesthesia/Blood Transfusion Reactions: No Reported Reaction Past Psychological History: No Psychological Hx Reported, Bipolar, Depression, Schizoaffective Disorder Smoking Status: Never smoker Past Alcohol Use History: None Reported Past Drug Use History: None Reported Plan - Discharge Summary New Discharge Prescriptions: New Pantoprazole [Protonix] 40 mg PO AC-BRKFST tab LORazepam [Ativan] 0.5 mg PO BID #6 tab Acetaminophen Tab [Tylenol] 650 mg PO Q6HR PRN tab PRN Reason: Fever and/ or Mild Pain Continue lisinopriL 2.5 mg PO DAILY Pioglitazone [Actos] 30 mg PO DAILY Sertraline [Zoloft] 25 mg PO DAILY metFORMIN HCL 1,000 mg PO BID INSULIN LISPRO (HumaLOG) [humaLOG] See Protocol SQ ACHS Atorvastatin [Lipitor] 40 mg PO HS busPIRone HCl [Buspar] 10 mg PO BID Tamsulosin HCl [Flomax] 0.4 mg PO DAILY Changed Insulin Glargine Max U-300 22 units SQ HS #0 Discontinued Divalproex ER [Depakote ER] 1,000 mg PO HS traZODone HCL [Desyrel] 50 mg PO DIRECTED fluPHENAZine HCl 10 mg PO HS fluPHENAZine decanoate [Prolixin Decanoate] 50 mg IM [id number] Divalproex ER [Depakote ER] 250 mg PO HS Benztropine Mesylate [Cogentin] 1 mg PO BID Discharge Medication List Atorvastatin [Lipitor] 40 mg PO HS 03/20/24 [History] INSULIN LISPRO (HumaLOG) [humaLOG] See Protocol SQ ACHS 03/20/24 [History] Pioglitazone [Actos] 30 mg PO DAILY 03/20/24 [History] Sertraline [Zoloft] 25 mg PO DAILY 03/20/24 [History] Tamsulosin HCl [Flomax] 0.4 mg PO DAILY 03/20/24 [History] busPIRone HCl [Buspar] 10 mg PO BID 03/20/24 [History] lisinopriL 2.5 mg PO DAILY 03/20/24 [History] metFORMIN HCL 1,000 mg PO BID 03/20/24 [History] Acetaminophen Tab [Tylenol] 650 mg PO Q6HR PRN tab 03/24/24 [Rx] Pantoprazole [Protonix] 40 mg PO AC-BRKFST tab 03/24/24 [Rx] Insulin Glargine Max U-300 22 units SQ HS #0 04/04/24 [Rx] LORazepam [Ativan] 0.5 mg PO BID #6 tab 04/04/24 [Rx] Follow up Appointment(s)/Referral(s): [facility] [Outside] - As Needed ([facility] P: [phone] not in office on Fridays call main number if needed. ) Corwin Khan, MARY [Family Provider] - 1-2 days Activity/Diet/Wound Care/Special Instructions: Stable for transfer to inpatient mental health unit. Discharge Disposition: TRANSFER TO PSYCH HOSP/UNIT
[2024-04-04 16:46] LABS: Glucose,Whole Blood 160 mg/dL (70-110)
--- NOTE | 2024-04-04 16:52 | P.PN ---
Progress Note - Text Progress Note Date: 04/04/24 Follow-up Mediation Review Chief Complaint: I am still very depressed Subjective: The patient noted continues to be very depressed. He still rates his depression at 9 on VAS. 0 being the normal mood and 10 being the worst The patient noted that he feels weak and has lost lot os strength. He noted eating better and walking indecently in the room with somebody with him for fall precautions. He requires continuation of physical therapy to regain independent mobility. At present he is severely depressed. He needs in-patient treatment to stabilize MS. Leading questions: The patient admitted to Depression and Anxiety. Denied SI or HI. Denied symptoms consistent with psychosis Sleep and Appetite: Appetite better. Sleep poor. Objective- MSE: Alert and attentive. Orientation times three. Dressed and Groomed: Appropriately. Pleasant and cooperative. Psychomotor Activity: Severe psychomotor retardation. Speech: low toned but improved from before, normal in quality, and under productive. The patient responds to closed ended question with one or two sentences. He does not initiate conversation. Mood: Depressed. Affect: Flat SI or HI: None. Perceptual disturbance: None. Thought Content: No paranoia or other delusional thinking noted. Thought Process: Normal. Cognition: Intact Judgment and Insight: Poor. AIMS: Normal. Diagnosis: Major depressive disorder severe, recurrent. Continue current Medications. The patient is discharged to med-psych. unit. Austen Raza MD Psychiatry
[2024-04-04 20:28] LABS: Glucose,Whole Blood 135 mg/dL (70-110)
[2024-04-04 20:40] VITALS: BP 119/74; PULSE 86; RESP 17; TEMP 97.9
== END 2024-04-04 21:25 | DRG 885 ==
LOC: EC 04:06 → 4SSUR 21:58 → OBSVTOIN 03-21 10:00 → 4SSUR 03-21 22:52 → 5NMEDONC 03-26 16:11
PROVIDERS: ADMIT Hospitalist; ATTEND Hospitalist
DX: F20.2 Catatonic schizophrenia (principal); R45.851 Suicidal ideations; Z59.01 Sheltered homelessness; F33.2 Major depressive disorder, recurrent severe without psychotic features; T79.6XXA Traumatic ischemia of muscle, initial encounter; W19.XXXA Unspecified fall, initial encounter; R26.9 Unspecified abnormalities of gait and mobility; R41.843 Psychomotor deficit; E78.5 Hyperlipidemia, unspecified; Z91.81 History of falling; R26.2 Difficulty in walking, not elsewhere classified; I10 Essential (primary) hypertension; N40.0 Benign prostatic hyperplasia without lower urinary tract symptoms; Z79.4 Long term (current) use of insulin; Z79.84 Long term (current) use of oral hypoglycemic drugs; Z79.899 Other long term (current) drug therapy; Z28.310 Unvaccinated for COVID-19; Z28.21 Immunization not carried out because of patient refusal; Z88.1 Allergy status to other antibiotic agents
CPT/HCPCS: 36415; 80048; 80053; 80306; 81003; 82075; 82550; 83735; 84100; 85025; 87635; 99285